=== PATIENT | female | born 1995 | race African-American/Black ===

== ENCOUNTER 2020-01-04 18:10 | Emergency (ER) | payer OTHER, SELFPAY ==
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
[2020-01-04 18:44] VITALS: BP 113/73; PULSE 89; RESP 18; TEMP 36.8; O2SAT 99
--- NOTE | 2020-01-04 18:54 | PC.NURSE ---
Pt states is having difficulty breathing with c collar in place. SPo2 100% on room air. Dr. Carwford made aware. Collar adjusted with neck midline and replaced. Pt states feels much better at present.
--- NOTE | 2020-01-04 20:32 | PC.NURSE ---
patient back from CT. wants nausea med and ice chips. will discuss with .
[2020-01-04 20:48] VITALS: BP 102/79; PULSE 100; RESP 12; O2SAT 100
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
[2020-01-04] MEDS: ONDANSETRON HCL ODT 4 MG TABLET PO (21:48)
[2020-01-04] MEDS: IBUPROFEN 400 MG TABLET 800 MG PO (21:48)
[2020-01-04 22:00] VITALS: BP 101/70; PULSE 78; RESP 14; O2SAT 98
== END 2020-01-04 22:00 | disposition home or self-care (01) ==
PROVIDERS: Emergency Provider General Practice; Referring Provider Emergency Medicine
DX: S70.11XA Contusion of right thigh, initial encounter (principal); S63.619A Unspecified sprain of unspecified finger, initial encounter; V43.52XA Car driver injured in collision with other type car in traffic accident, initial encounter
CPT/HCPCS: 73140; 73552; 99284; A9270

== ENCOUNTER 2021-02-08 09:11 | Emergency (ER) | payer OTHER, SELFPAY ==
[2021-02-08] VITALS (8 sets, daily range): BP systolic 114–133; BP diastolic 74–84; PULSE 68–92; RESP 16; TEMP 36.2; O2SAT 97–100
--- NOTE | ~2021-02-08 | XR_ITS ---
EXAMINATION: XR chest 1V DATE: 02/08/2021 10:42 INDICATION: Headache. Fatigue. Dizziness. TECHNIQUE: A single frontal view of the chest was obtained. COMPARISON: None. FINDINGS: The chest demonstrates clear lungs without pneumonia, pleural effusion, or pneumothorax. Th e heart size is normal. IMPRESSION: 1. No acute cardiopulmonary disease. Reviewed, dictated and finalized at location A. OLOGY TEACHER
--- NOTE | ~2021-02-08 | CT_ITS ---
EXAMINATION: CT brain wo con DATE: 02/08/2021 10:38 INDICATION: Left-sided headache. TECHNIQUE: Computed tomography (CT) of the head was performed without intravenous contrast. The mA wa s adjusted according to patient size. Iterative reconstruction technique was employed. The dose-lengt h product was 605.33 mGy-cm. COMPARISON: None FINDINGS: There is no intracranial hemorrhage, acute infarction, or abnormal intracranial mass lesion . The ventricles are normal in size. There is mucosal thickening in the paranasal sinuses. The mastoi d air cells are normal. The orbits are normal. IMPRESSION: 1. Normal brain. Reviewed, dictated and finalized at location A. ECT SCIENTIFIC RESEARCH IMPRESSION: 1. Normal brain.
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
[2021-02-08 10:23] LABS: Basophils Percent Auto 0.6 % (0.2-1.2); Eosinophils Percent Auto 1.2 % (0-4.4); Hematocrit 39.8 % (37.0-47.0); Hemoglobin 12.5 g/dL (12.0-15.0); Immature Granulocyte Absolute 0.01 K/mm3 (0.00-0.031); Immature Granulocyte Percent A 0.3 % (0-0.5); Lymphocytes Absolute Auto 1.43 K/mm3 (0.9-3.2); Lymphocytes Percent Auto 43.1 % (18.3-44.2); Mean Corpuscular HGB Conc 31.4 g/dl (32-36); Mean Corpuscular Hemoglobin 27.4 pg (26-34); Mean Corpuscular Volume 87.3 fl (80-100); Monocytes Absolute Auto 0.4 K/mm3 (0.1-0.6); Neutrophils Absolute Auto 1.4 K/mm3 (1.3-6.7); Neutrophils Percent Auto 41.8 % (45.5-73.1); Platelet Count Result 240 k/mm3 (150-375); Red Blood Count 4.56 M/mm3 (4.2-5.4); Red Cell Distribution Width 14.4 % (11.5-14.5); White Blood Count 3.3 K/mm3 (4.5-10.0)
[2021-02-08 10:39] LABS: Alanine Aminotransferase 15 U/L (4-35); Albumin Level 4.2 g/dL (3.5-5.1); Alkaline Phosphatase 55 U/L (38-126); Anion Gap 3 mmol/L (8-16); Aspartate Amino Transferase 23 U/L (14-36); Bilirubin,Total 0.6 mg/dL (0.2-1.3); Blood Urea Nitrogen 6 mg/dL (7-17); Calcium 9.5 mg/dL (8.4-10.2); Carbon Dioxide 28 mmol/L (22-30); Chloride 107 mmol/L (98-107); Estimated CRCL calculation 132 ml/min; Estimated Glomerular Filt Rate > 60; Glucose 109 mg/dL (65-110); Potassium 4.2 mmol/L (3.4-5.0); Sodium 138 mmol/L (137-145)
[2021-02-08 11:09] LABS: Add Urine Microscopic? YES; Appearance Urine Cloudy (Clear); Bacteria Urine Trace /hpf; Bilirubin Urine Negative (Negative); Blood Urine 2+ (Negative); Color Urine Yellow (Yellow); Glucose Urine UA Negative (Negative); Ketones Urine Negative (Negative); Leukocyte Esterase Ur 1+ LEU/UL (Negative); Mucus Urine Moderate /lpf; Nitrate Urine Negative (Negative); Protein Urine Negative (Negative); RBC Urine 0-2 /hpf (0-2); Specific Grav Ur 1.021 (1.001-1.035); Squamous Epithelial Cell Urine Many /hpf (Few)
--- NOTE | 2021-02-08 12:36 | PC.NURSE ---
Per [facility] staff, pt is supposed to wear 2L/NC continuously. Nurse is unsure if pt has been tested for COVID. They have no results.
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
== END 2021-02-08 12:41 | disposition home or self-care (01) ==
PROVIDERS: Physician Assistant; Emergency Provider Emergency Medicine; PCP Family Medicine
DX: R51.9 Headache, unspecified (principal)
CPT/HCPCS: 36415; 70450; 71045; 80053; 81001; 81025; 84443; 85025; 87086; 87088; 99284

== ENCOUNTER 2022-02-28 15:49 | Outpatient (CLI) | payer BC, SELFPAY | END 2022-02-28 15:50 | disposition home or self-care (01) | PROVIDERS: PCP Family Medicine; Visit Provider Obstetrics & Gynecology | DX: N91.1 Secondary amenorrhea (principal) | CPT/HCPCS: 36415; 84702 ==

== ENCOUNTER 2022-03-02 09:21 | Outpatient (CLI) | payer BC, SELFPAY | END 2022-03-02 09:22 | disposition home or self-care (01) | PROVIDERS: PCP Family Medicine; Visit Provider Obstetrics & Gynecology | DX: N91.1 Secondary amenorrhea (principal) | CPT/HCPCS: 36415; 84702 ==

== ENCOUNTER 2022-03-14 15:46 | Outpatient (CLI) | payer BC, MEDICAID, SELFPAY ==
--- NOTE | ~2022-03-14 | US_ITS ---
EXAMINATION: US OB <=14 wk fetus w TV DATE: 03/14/2022 16:38 INDICATION: Uncertain dates. . TECHNIQUE: Real-time transabdominal and transvaginal pelvic ultrasound was performed. COMPARISON: None. FINDINGS: TRANSABDOMINAL ULTRASOUND: The uterus measures 11.3 x 5.3 x 6.1 cm. TRANSVAGINAL ULTRASOUND: There is an intrauterine gestational sac. A yolk sac is identified. The fet al crown rump length measures 8 mm, which correlates with an estimated gestational age of 6 weeks and 5 day(s) (+/-) 4 day(s). heart motion is identified measuring 117 beats per minute (bpm) by M- mode Doppler. The right ovary measures 2.4 x 2.0 x 1.0 cm. The left ovary measures 2.1 x 1.8 x 2.1 cm . There is no free fluid in the pelvis. IMPRESSION: 1. Single living intrauterine gestation with estimated date of delivery of 11/02/2022. Reviewed, dictated and finalized at location A. EL SCRAPPER IMPRESSION: 1. Single living intrauterine gestation with estimated date of delivery of 11/02.
== END 2022-03-14 15:47 | disposition home or self-care (01) ==
PROVIDERS: PCP Family Medicine; Visit Provider Obstetrics & Gynecology
DX: Z36.9 Encounter for antenatal screening, unspecified (principal); Z3A.00 Weeks of gestation of pregnancy not specified
CPT/HCPCS: 76801; 76817

== ENCOUNTER 2022-08-03 11:26 | Outpatient (CLI) | payer BC, MEDICAID, SELFPAY ==
[2022-08-03 13:19] LABS: Basophils Percent Auto 0.4 % (0.2-1.2); Eosinophils Absolute Auto 0.1 K/mm3 (0-0.3); Eosinophils Percent Auto 1.9 % (0-4.4); Hematocrit 33.3 % (37.0-47.0); Hemoglobin 10.5 g/dL (12.0-15.0); Immature Granulocyte Absolute 0.02 K/mm3 (0.00-0.031); Immature Granulocyte Percent A 0.3 % (0-0.5); Lymphocytes Percent Auto 22.3 % (18.3-44.2); Mean Corpuscular HGB Conc 31.5 g/dl (32-36); Mean Corpuscular Hemoglobin 26.9 pg (26-34); Mean Corpuscular Volume 85.4 fl (80-100); Mean Platelet Volume 10.7 fl (7.4-10.4); Monocytes Absolute Auto 0.6 K/mm3 (0.1-0.6); Monocytes Percent Auto 9.2 % (2.6-8.5); Neutrophils Absolute Auto 4.4 K/mm3 (1.3-6.7); Neutrophils Percent Auto 65.9 % (45.5-73.1); Platelet Count Result 192 k/mm3 (150-375); White Blood Count 6.7 K/mm3 (4.5-10.0)
[2022-08-03 13:34] LABS: Glucose 1 Hour PP 50gm Dose 91 mg/dL
[2022-08-03 13:57] LABS: Vitamin D 25 Hydroxy 14.8 ng/mL
[2022-08-03 14:28] LABS: Hepatitis C Virus Antibody Negative (Negative)
== END 2022-08-03 11:27 | disposition home or self-care (01) ==
LOC: ANHLAB 11:27
PROVIDERS: PCP Family Medicine; Visit Provider Registered Nurse
DX: Z34.90 Encounter for supervision of normal pregnancy, unspecified, unspecified trimester (principal)
CPT/HCPCS: 36415; 82306; 82947; 84443; 85025; 86787; 86803

== ENCOUNTER 2022-10-07 14:03 | Outpatient (CLI) | payer BC, MEDICAID, SELFPAY ==
[2022-10-07 15:33] LABS: Basophils Percent Auto 0.1 % (0.2-1.2); Eosinophils Percent Auto 0.6 % (0-4.4); Hematocrit 31.5 % (37.0-47.0); Hemoglobin 9.7 g/dL (12.0-15.0); Immature Granulocyte Absolute 0.04 K/mm3 (0.00-0.031); Immature Granulocyte Percent A 0.6 % (0-0.5); Lymphocytes Absolute Auto 1.48 K/mm3 (0.9-3.2); Lymphocytes Percent Auto 21.3 % (18.3-44.2); Mean Corpuscular HGB Conc 30.8 g/dl (32-36); Mean Corpuscular Hemoglobin 25.5 pg (26-34); Mean Corpuscular Volume 82.7 fl (80-100); Mean Platelet Volume 11.3 fl (7.4-10.4); Monocytes Absolute Auto 0.6 K/mm3 (0.1-0.6); Monocytes Percent Auto 8.2 % (2.6-8.5); Neutrophils Absolute Auto 4.8 K/mm3 (1.3-6.7); Neutrophils Percent Auto 69.2 % (45.5-73.1); Platelet Count Result 159 k/mm3 (150-375); Red Blood Count 3.81 M/mm3 (4.2-5.4); Red Cell Distribution Width 15.8 % (11.5-14.5); White Blood Count 6.9 K/mm3 (4.5-10.0)
[2022-10-07 16:55] LABS: HIV 1/2 Ab P24 Ag Result Negative (Negative)
[2022-10-08 12:13] LABS: Rapid Plasma Reagin Non-Reactive (NonReactive)
== END 2022-10-07 14:04 | disposition home or self-care (01) ==
LOC: ANHLAB 14:05
PROVIDERS: PCP Family Medicine; Visit Provider Obstetrics & Gynecology
DX: Z34.90 Encounter for supervision of normal pregnancy, unspecified, unspecified trimester (principal); Z3A.00 Weeks of gestation of pregnancy not specified
CPT/HCPCS: 36415; 85025; 86592; 86703; G0432

== ENCOUNTER 2022-10-15 08:54 | Inpatient (IN) | payer BC, MEDICAID, SELFPAY ==
[2022-10-15] VITALS (205 sets, daily range): BP systolic 60–122; BP diastolic 34–84; PULSE 37–190; RESP 16–18; TEMP 36.1–36.3; O2SAT 92–100; BMI 35.8
--- NOTE | ~2022-10-15 | US_ITS ---
EXAMINATION: US OB limited w BPP DATE: 10/15/2022 12:01 INDICATION: Decelerations during third trimester TECHNIQUE: Real-time pelvic ultrasound was performed. The interpreting radiologist was not present fo r the study. COMPARISON: 03/14/2022 FINDINGS: There is a single living fetus in vertex presentation. The placenta is fundal. heart rate is 14 1 beats per minute (bpm). Biophysical profile performed by the technologist: breathing (30 sec sustained breathing in 30 minutes): 2 out of 2 movement (3 gross body movements in 30 minutes): 2 out of 2 tone (one episode of [id number]-[id number] limb movement): 2 out of 2 Amniotic fluid pocket (2 cm): 2 out of 2 Total score: 8 out of 8 IMPRESSION: 1. Single living fetus in vertex presentation. 2. Biophysical profile 8 out of 8. Reviewed, dictated and finalized at location A.
[2022-10-15 11:42] LABS: Basophils Percent Auto 0.2 % (0.2-1.2); Eosinophils Absolute Auto 0.1 K/mm3 (0-0.3); Eosinophils Percent Auto 0.6 % (0-4.4); Hematocrit 31.9 % (37.0-47.0); Hemoglobin 9.7 g/dL (12.0-15.0); Immature Granulocyte Absolute 0.02 K/mm3 (0.00-0.031); Immature Granulocyte Percent A 0.2 % (0-0.5); Lymphocytes Absolute Auto 1.55 K/mm3 (0.9-3.2); Lymphocytes Percent Auto 19.3 % (18.3-44.2); Mean Corpuscular HGB Conc 30.4 g/dl (32-36); Mean Corpuscular Hemoglobin 25.1 pg (26-34); Mean Corpuscular Volume 82.4 fl (80-100); Mean Platelet Volume 11.4 fl (7.4-10.4); Monocytes Absolute Auto 0.6 K/mm3 (0.1-0.6); Neutrophils Absolute Auto 5.9 K/mm3 (1.3-6.7); Neutrophils Percent Auto 72.7 % (45.5-73.1); Platelet Count Result 165 k/mm3 (150-375); Red Blood Count 3.87 M/mm3 (4.2-5.4); Red Cell Distribution Width 16.1 % (11.5-14.5); White Blood Count 8.1 K/mm3 (4.5-10.0)
[2022-10-15 11:47] LABS: Appearance Urine Clear (Clear); Bacteria Urine None Seen /hpf; Bilirubin Urine Negative (Negative); Blood Urine Negative (Negative); Color Urine Yellow (Yellow); Glucose Urine UA Negative (Negative); Ketones Urine Negative (Negative); Leukocyte Esterase Ur Trace LEU/UL (Negative); Nitrate Urine Negative (Negative); Non Pathogenic Casts 0-2; Protein Urine Negative (Negative); RBC Urine 0-2 /hpf (0-2); Specific Grav Ur 1.004 (1.001-1.035); Squamous Epithelial Cell Urine None seen /hpf (Few); WBC Urine 0-5 /hpf
[2022-10-15 11:49] LABS: Add Urine Microscopic? YES
[2022-10-15 11:51] LABS: Potassium 3.7 mmol/L (3.4-5.0)
[2022-10-15 11:56] LABS: Alanine Aminotransferase 12 U/L (6-35); Albumin Level 3.6 g/dL (3.5-5.1); Alkaline Phosphatase 102 U/L (38-126); Anion Gap 8 mmol/L (8-16); Aspartate Amino Transferase 18 U/L (14-36); Bilirubin,Total 0.6 mg/dL (0.2-1.3); Blood Urea Nitrogen 3 mg/dL (7-17); Calcium 8.8 mg/dL (8.4-10.2); Carbon Dioxide 20 mmol/L (22-30); Chloride 106 mmol/L (98-107); Estimated Glomerular Filt Rate > 60; Glucose 93 mg/dL (65-110); Sodium 134 mmol/L (137-145)
[2022-10-15] MEDS: LACTATED RINGERS 1,000 ML 125 ML IV CONT ×3 (14:57→19:42)
[2022-10-15] MEDS: OXYTOCIN 30 UNITS/NS 500 ML 30 UNITS/500 ML BAG IV CONT (15:00)
--- NOTE | 2022-10-15 15:06 | LDADM ---
This patient, Woodrow Marques, was admitted to Labor/Delivery/Recovery 106 on 10/15/22 at 0854. Plans for labor, pain management and were discussed with patient. Patient/family oriented to hospital policies and general routines including ID bracelet, bed and alarms, visiting hours, pain management, procedures, bathroom and other care routines, personal items, smoking policy, room service/diet and guest tray routines, security routines, and visiting hours. Patient/Family are encouraged to report perceived risks to care and to ask questions if they do not understand what they are told or what they should do. See OBIX for further documentation.
--- NOTE | 2022-10-15 16:23 | WPDANESEPPF ---
Anes - Initial Pre Proc Eval Procedure: labor epidural Date/Time: 10/15/22 16:23 Surgeon: Yeison Smith MD Pre Op Diagnosis: labor pain Pre Op Diagnosis: Lower Back Pain, Itchiness Patient Data Age: 27 Gender: F Height: 1.6 m Weight: 91.7 kg Last Vital Signs Temp 36.3 C L 10/15/22 15:00 Pulse 103 H 10/15/22 16:22 Resp 16 10/15/22 15:00 BP 121/58 L 10/15/22 16:22 Pulse Ox 100 10/15/22 16:18 O2 Del Method Room Air 10/15/22 15:06 Allergies Allergy/AdvReac Type Severity Reaction Status Date / Time Penicillins Allergy Intermediate rash Verified 10/10/22 15:23 amoxicillin Allergy Unknown RASH Verified 10/10/22 15:23 Home Medications Medication Instructions Recorded Confirmed Type prenat.vits,felecia,rml-auxe-ttgci 1 tablet PO DAILY 05/14/22 10/15/22 History ferrous sulfate 325 mg (65 mg 325 mg PO DAILY 08/21/22 10/15/22 History iron) tablet Laboratory Tests 10/15/22 10/15/22 11:29 11:32 WBC 8.1 K/mm3 (4.5-10.0) RBC 3.87 L M/mm3 (4.2-5.4) Hgb 9.7 L g/dL (12.0-15.0) Hct 31.9 L % (37.0-47.0) MCV 82.4 fl (80-100) MCH 25.1 L pg (26-34) MCHC 30.4 L g/dl (32-36) RDW 16.1 H % (11.5-14.5) Plt Count 165 k/mm3 (150-375) MPV 11.4 H fl (7.4-10.4) Immature Gran % (Auto) 0.2 % (0-0.5) Neut % (Auto) 72.7 % (45.5-73.1) Lymph % (Auto) 19.3 % (18.3-44.2) [place] % (Auto) 7.0 % (2.6-8.5) Eos % (Auto) 0.6 % (0-4.4) Baso % (Auto) 0.2 % (0.2-1.2) Lymph # (Auto) 1.55 K/mm3 (0.9-3.2) [place] # (Auto) 0.6 K/mm3 (0.1-0.6) Eos # (Auto) 0.1 K/mm3 (0-0.3) Baso # (Auto) 0.0 K/mm3 (0.0-0.1) Abs Immat Gran (auto) 0.02 K/mm3 (0.00-0.031) Absolute Neuts (auto) 5.9 K/mm3 (1.3-6.7) Absolute Nucleated RBC 0.0 K/mm3 (0.0-0.012) Nucleated RBC % 0.0 % (0.0-0.2) Sodium 134 L mmol/L (137-145) Potassium 3.7 mmol/L (3.4-5.0) Chloride 106 mmol/L (98-107) Carbon Dioxide 20 L mmol/L (22-30) Anion Gap 8 mmol/L (8-16) BUN 3 L mg/dL (7-17) Creatinine 0.40 L mg/dL (0.7-1.0) Estim Creat Clear Calc Not Reportable Estimated GFR > 60 (59 - ) Glucose 93 mg/dL (65-110) Calcium 8.8 mg/dL (8.4-10.2) Total Bilirubin 0.6 mg/dL (0.2-1.3) AST 18 U/L (14-36) ALT 12 U/L (6-35) Alkaline Phosphatase 102 U/L (38-126) Total Protein 7.0 g/dL (6.3-8.2) Albumin 3.6 g/dL (3.5-5.1) Cholic Acid Pending Deoxycholic Acid Pending Chenodeoxycholic Acid Pending Total Bile Acids Pending Urine Color Yellow (Yellow) Urine Appearance Clear (Clear) Urine pH 6.0 (5.0-9.0) Ur Specific [place] 1.004 (1.001-1.035) Urine Protein Negative mg/dL (Negative) Urine Glucose (UA) Negative mg/dL (Negative) Urine Ketones Negative mg/dL (Negative) Ur Blood (Man) Negative (Negative) Urine Nitrate Negative (Negative) Urine Bilirubin Negative (Negative) Urine Urobilinogen 1.0 mg/dL (<2.0) Leukocyte Esterase Rfl Trace H EARL/UL (Negative) Urine RBC 0-2 /hpf (0-2) Urine WBC 0-5 /hpf Ur Squamous Epith Cells None seen /hpf (Few) Urine Bacteria None seen /hpf Urine Casts 0-2 RPR Pending Blood Type B Positive Antibody Screen Negative Patient hx anesthesia problems: none Family hx anesthesia problems: none Results Review: All pre-operative results and documents have been reviewed as part of the pre-operative evaluation. [facility] Past Medical History Medical History Constipation Vaginal odor Surgical History Surgical History (Reviewed 10/10
[2022-10-15] MEDS: DEXTROSE 5%/LACTATED RINGERS 1,000 ML 125 ML IV CONT (17:10)
[2022-10-15] MEDS: PHENYLEPHRINE 1,000 MCG/10 ML SYRINGE 100 MCG IV PUSH ×4 (17:17→17:55)
[2022-10-15] MEDS: ePHEDrine sulfate INJ 50 MG/ML AMPUL 10 MG IV PUSH (18:07)
--- NOTE | 2022-10-15 20:44 | PM.IMHP ---
H&P: HPI History of Present Illness Date/Time: 10/15/22 20:44 Chief Complaint: Abnormal surveillance Narrative: She is 27 y/o at 37 3/7 weeks sent to L and D for contractions. She also complained of diffuse hand itching for a day, no rash. During her NST she had recurrent variable decelerations and was recommended for medical induction of labor. PNC significant for history of marijuana use which she stopped during . Also treated for chlmydia with negative RICHY during the , anemia of which she was ordered iron injection because was not tolerating oral iron. Labs reviewed. GBS neg. Review of Systems Review of Systems: All systems reviewed & are unremarkable except as noted in HPI and below Constitutional: Constitutional: Reports no additional constitutional complaints and Denies headache(s) Eyes: Eyes: Denies spots in vision ENT: Reports system reviewed and no additional complaints, except as documented and Denies headache(s) Cardiovascular: Cardiovascular: Denies chest pain and Denies dyspnea Respiratory: Respiratory: Denies dyspnea Gastrointestinal: Gastrointestinal: Reports no additional gastrointestinal complaints Genitourinary: Genitourinary: Reports amenorrhea Musculoskeletal: Musculoskeletal: Reports no additional musculoskeletal complaints Integumentary/Breasts: Skin/Breast: Denies breast mass and Denies rash Neurologic: Denies headache(s) Psychiatric: Psychiatric: Reports no additional psychiatric complaints [facility] Past Medical History Medical History Constipation Vaginal odor Surgical History Surgical History H/O foot surgery Family History Family History Son Asthma Grandparent History of cancer Cerebrovascular accident Other Diabetes mellitus Aunt Social History Social History Smoking status: Never smoker Second hand tobacco smoke exposure: Yes Alcohol intake: never Substance use: former Last use: Stopped Lack of Transportation: No Lack of Food: Never True Current Housing: I Have Housing Concerned About Future Housing: No Difficulty Paying Gas/Electric Bills: No Difficulty Paying for Meds: No Currently Unemployed: No Education: Bachelor's Degree Difficulty w/ Childcare or Family Care: No Living arrangements: with family Occupation/Education: occupation Gender identity (if verbalized by the patient): Female Sexual Orientation (if Verbalized by the Patient): Straight or Heterosexual Spiritual care concerns: No Agree to blood products: Yes Meds Home Medications and Allergies Home Medications Medication Instructions Recorded Confirmed Type prenat.vits,felecia,erz-clck-bnbjs 1 tablet PO DAILY 05/14/22 10/15/22 History ferrous sulfate 325 mg (65 mg 325 mg PO DAILY 08/21/22 10/15/22 History iron) tablet Allergies Allergy/AdvReac Type Severity Reaction Status Date / Time Penicillins Allergy Intermediate rash Verified 10/10/22 15:23 amoxicillin Allergy Unknown RASH Verified 10/10/22 15:23 Vital Signs Vital Signs - 24 hr 10/15/22 09:16 10/15/22 09:31 10/15/22 09:46 Temperature Pulse Rate 94 80 84 Respiratory Rate Blood Pressure 102/58 L 105/58 L 103/65 Pulse Oximetry Oxygen Delivery 10/15/22 10:31 10/15/22 11:01 10/15/22 11:31 Temperature Pulse Rate 90 99 88 Respiratory Rate Blood Pressure 100/67 96/66 L 102/63 Pulse Oximetry Oxygen Delivery 10/15/22 14:52 10/15/22 14:59 10/15/22 15:15 Temperature Pulse Rate 99 98 97 Respiratory Rate Blood Pressure 108/65 108/66 105/67 Pulse Oximetry Oxygen Delivery 10/15/22 15:30 10/15/22 14:00 10/15/22 15:00 Temperature 97.1 F L 97.3 F L Pulse Rate 95 Respiratory R
--- NOTE | 2022-10-15 21:06 | PM.OBPNVD ---
OB - PN: Subj Subjective Date/time seen: 10/15/22 21:06 Interval history: Cat 2, irreg ctx, cervix /blottable. Continue Pitocin. OB - PN: Obj Data Labs 10/15/22 11:32 10/15/22 11:32 Labs: Laboratory Results - last 24 hr 10/15/22 10/15/22 11:29 11:32 WBC 8.1 RBC 3.87 L Hgb 9.7 L Hct 31.9 L MCV 82.4 MCH 25.1 L MCHC 30.4 L RDW 16.1 H Plt Count 165 MPV 11.4 H Immature Gran % (Auto) 0.2 Neut % (Auto) 72.7 Lymph % (Auto) 19.3 [place] % (Auto) 7.0 Eos % (Auto) 0.6 Baso % (Auto) 0.2 Lymph # (Auto) 1.55 [place] # (Auto) 0.6 Eos # (Auto) 0.1 Baso # (Auto) 0.0 Abs Immat Gran (auto) 0.02 Absolute Neuts (auto) 5.9 Absolute Nucleated RBC 0.0 Nucleated RBC % 0.0 Sodium 134 L Potassium 3.7 Chloride 106 Carbon Dioxide 20 L Anion Gap 8 BUN 3 L Creatinine 0.40 L Estim Creat Clear Calc Not Reportable Estimated GFR > 60 Glucose 93 Calcium 8.8 Total Bilirubin 0.6 AST 18 ALT 12 Alkaline Phosphatase 102 Total Protein 7.0 Albumin 3.6 Urine Color Yellow Urine Appearance Clear Urine pH 6.0 Ur Specific [place] 1.004 Urine Protein Negative Urine Glucose (UA) Negative Urine Ketones Negative Ur Blood (Man) Negative Urine Nitrate Negative Urine Bilirubin Negative Urine Urobilinogen 1.0 Leukocyte Esterase Rfl Trace H Urine RBC 0-2 Urine WBC 0-5 Ur Squamous Epith Cells None seen Urine Bacteria None seen Urine Casts 0-2 Blood Type B Positive Antibody Screen Negative Imaging Radiologist's impression: Impressions Obstetrics US/Biophysical Profile 10/15/22 12:11 IMPRESSION: 1. Single living fetus in vertex presentation. 2. Biophysical profile 8 out of 8. OB - PN A/P Time Spent With Patient Time: Total time spent is greater than 50% in coordination of care (as documented) at patient's floor/unit and/or counseling patient:
[2022-10-16] VITALS (157 sets, daily range): BP systolic 80–118; BP diastolic 43–103; PULSE 70–160; RESP 16–18; TEMP 36.2–36.9; O2SAT 82–100
[2022-10-16] MEDS: DEXTROSE 5%/LACTATED RINGERS 1,000 ML 125 ML IV CONT ×2 (02:08→10:10)
[2022-10-16] MEDS: CALCIUM CARBONATE (TUMS) 500 MG (200 MG ELEMENTAL) PO (02:26)
[2022-10-16] MEDS: OXYTOCIN 30 UNITS/NS 500 ML 30 UNITS/500 ML BAG 125 UNITS IV CONT (11:15)
--- NOTE | 2022-10-16 13:03 | OBPPTRN ---
Patient transferred to post room #277 via wheelchair. Support person present. Oriented to unit, room, information board, rooming in, admission packet and security measures. Patient verbalizes understanding.
[2022-10-16] MEDS: IBUPROFEN 600 MG TABLET PO ×2 (13:21→21:43)
--- NOTE | 2022-10-16 13:57 | PM.OBPRVD ---
OB - Delivery Note Procedure Delivery date: 10/16/22 Procedure: spontaneous vaginal delivery Events: Other (nonreassuring tracing) Induction method: Per Pitocin Protocol Delivery augmentation: Rupture of Membranes Delivery monitor: External FHT and Internal Uterine Route of delivery: Laceration Description: None Quantitative Blood Loss (ml): 200 Anesthesia type: Epidural Disposition: Floor Narrative: She was admitted for medical induction of labor with Pitocin due to nonreassuring tracing with recurrent variable decelerations. Pitocin was initiated. She requested epidural early due to fast prior delivery. Epidural was placed. She progressed to active labor slowly. She had AROM clear fluid and then progressed to complete. She had an uncomplicated vaginal delivery, no lacerations, loose nuchal cord manualy reduced. Delayed cord clamping and skin to skin performed. [place] Baby Date of : 10/16/22 Time of : 10:45 Weeks of gestation at delivery: 37 Infant gender: Male Weight (pounds): 7 Weight (ounces): 5 presentation: vertex position: Right Occiput Anterior Placenta delivery description: Spontaneous Cord Vessel Description: 3 Vessels score one minute: 9 score five minutes: 9
[2022-10-16 14:43] LABS: Rapid Plasma Reagin Non-Reactive (NonReactive)
[2022-10-16] MEDS: ACETAMINOPHEN 325 MG TABLET 650 MG PO (16:29)
[2022-10-16] MEDS: POLYSACCHARIDE IRON COMPLEX 150 MG CAPSULE PO (16:29)
[2022-10-16] MEDS: DOCUSATE SODIUM 100 MG CAPSULE PO (16:29)
[2022-10-17] MEDS: IBUPROFEN 600 MG TABLET PO (03:22)
[2022-10-17] MEDS: ACETAMINOPHEN 325 MG TABLET 650 MG PO (03:22)
[2022-10-17 03:28] VITALS: BP 111/62; PULSE 82; RESP 18; TEMP 36.2; O2SAT 100
[2022-10-17 04:21] LABS: Hematocrit 30.6 % (37.0-47.0); Hemoglobin 9.3 g/dL (12.0-15.0)
[2022-10-17] MEDS: MULTIVIT/MIN/PREN/FOL AC/IRON TABLET 1 TAB PO (07:23)
[2022-10-17] MEDS: DOCUSATE SODIUM 100 MG CAPSULE PO (07:23)
[2022-10-17] MEDS: POLYSACCHARIDE IRON COMPLEX 150 MG CAPSULE PO (07:23)
[2022-10-17] MEDS: TETANUS,DIPHTHERIA,AC PERTUSSIS ADULT (0.5 ML) BOOSTRIX IM (07:23)
[2022-10-17 07:30] VITALS: BP 95/52; PULSE 87; RESP 16; TEMP 36.8; O2SAT 100
--- NOTE | 2022-10-17 11:02 | PM.OBPNVD ---
OB - PN: Subj Subjective Date/time seen: 10/17/22 11:02 Patient comments: pain well controlled, tolerating diet and other (Decreasing lochia.) baby status: doing well and nursing well [place] feeding status: breast and bottle feeding OB - PN: Obj Data Labs 10/17/22 03:13 10/15/22 11:32 Labs: Laboratory Results - last 24 hr 10/15/22 10/17/22 11:29 03:13 Hgb 9.3 L Hct 30.6 L RPR Non-reactive OB - PN A/P Assessment and Plan (1) Vaginal delivery: Code(s): O80 - Encounter for full-term uncomplicated delivery Status: Acute Plan day: 1 Plan: routine care Comments: Patient doing well. She request discharge. Discussed discharge precautions. Time Spent With Patient Time: Total time spent is greater than 50% in coordination of care (as documented) at patient's floor/unit and/or counseling patient: Exam Const: General: comfortable and no acute distress Resp: Effort & Inspection: normal respiratory effort GI: Inspection: normal to inspection Psych: Affect: normal affect Other: Abd: fundus firm below umbilicus, nontender Ext: nontender
--- NOTE | 2022-10-17 12:14 | PC.NURSE ---
Patient viewed the discharge video Mother & Baby Care, The First Two Weeks . Patient was given the opportunity and encouraged to ask questions. Patient verbalized understanding of information shared and has been given the mother/baby guide for home reference.
--- NOTE | 2022-10-17 13:18 | WPDANLDPN2 ---
Anes-Prog Note L&D Date/Time: 10/17/22 13:18 Comfortable throughout: labor and delivery Neuraxial method: epidural Epidural/Spinal procedure site: clean & non-tender Neuro status: Neuro function grossly intact. Cardiovascular status: normal Respiratory status: normal Airway patency: baseline Mental status: baseline Post-Op hydration status: normal Vital Signs: Last Vital Signs Temp 36.8 C 10/17/22 07:30 Pulse 87 10/17/22 07:30 Resp 16 10/17/22 07:30 BP 95/52 L 10/17/22 07:30 Pulse Ox 100 10/17/22 07:30 O2 Del Method Room Air 10/17/22 07:20 Pain score (VAS): 2/10 I/O: Intake & Output 10/16/22 10/17/22 10/17/22 23:59 07:59 15:59 Intake Total 500 Balance 500 Patient feedback: Patient satisfied with anesthetic care.
--- NOTE | 2022-10-17 13:45 | PC.NURSE ---
[id number] Re-introductions were made as RN has worked with mother in the past with two prior infants. Consulted with patient to assess needs related to . Mother led the conversation with her?plans to feed?her with combination feeding and the?experience so far. Reviewed education regarding protecting the milk supply, without pain, waking infant to feed on demand or every 3 hours and prevention/treatment of mastitis, plugged ducts or engorgement. Mother states the initial was painful especially taking her infant off the breast so we reviewed detaching infant from the breast. Reminded mother to use good handwashing technique to prevent infection. Mother is feeding appropriately for growth of infant and understands stimulating to eat if needed. has had appropriate feedings in the last 24 hours meets the outcomes for weight, output and jaundice at this time. Mother states she is confident to continue feeding her at home, when to call for assistance and denies any additional assistance or education at this time. Resources provided for inpatient and outpatient services with the feeding sheet, mom/baby guide and name written on the white board. Mother voiced understanding of information and will call if there is a request for assistance. Reported to the primary RN. [id number] - Mother states she independently latched infant without pain on her own earlier as she prepares to go home with her . Primary RN is present.
[2022-10-18 11:24] VITALS: BP 97/62; PULSE 82; RESP 18; TEMP 37.1; O2SAT 100
[2022-10-22 16:31] LABS: Chenodeoxycholic Acid 1.6 umol/L (< OR = 3.9); Cholic Acid <0.5 umol/L (< OR = 2.8); Deoxycholic Acid 0.5 umol/L (< OR = 2.3); Total Bile Acids 2.1 umol/L (< OR = 8.3)
--- NOTE | 2022-10-31 20:46 | PM.OBDSVD ---
DS: Admitting Diagnosis Discharge Date 10/17/22 Admitting Diagnosis Nonreassuring heart tracing. DS: Discharge Diagnosis Discharge Diagnosis (1) Non-reassuring cardiotocographic tracing: Code(s): O36.8390 - Maternal care for abnormalities of the heart rate or rhythm, unspecified trimester, not applicable or unspecified Status: Acute (2) Vaginal delivery: Code(s): O80 - Encounter for full-term uncomplicated delivery Status: Acute OB - DS: Summary Hospital Course Hospital Course: She was admitted for MIL with Pitocin for nonreassuring heart tracing. She had an uncomplicated vaginal delivery. She did well . Baby did well . She was ambulating well and tolerating regular diet and had adequate pain control on day 1. She requested discharge to home on day 1. OB Procedures : Ultrasound OB Procedures Intrapartum: Spontaneous Vag Delivery OB Procedures: : None Peripartum Data Delivery Method: Natural Vaginal complications: none Status at Discharge Functional status at discharge: independent ambulation Time Spent with Patient Time attestation: Total time spent providing and/or coordinating discharge services: Exam Const: General: cooperative Orientation/consciousness: oriented to person, oriented to place and oriented to time HENMT: Face/Nose/Sinus: Normal external nose present Eyes: General: appearance normal, both eyes and all related structures Resp: Effort & Inspection: normal respiratory effort GI: Inspection: normal to inspection Skin: General skin exam: normal color Neuro: General: oriented to person, oriented to place and oriented to time Extrem: General: normal to inspection and no calf tenderness Psych: Appearance: grossly normal Mental Status: mental status grossly normal Discharge Plan Discharge Attending physician on discharge: Yeison Smith Consulting providers: Macr Fink; Vijaya Ramirez; Gonzales Palmer Discharging Clinician: Yeison Smith Anticipated Discharge Date/Time: 10/17/22 11:09 Patient Disposition: Home, Self-Care Activity: may shower and pelvic rest Diet: regular Discharge Instructions: Education: Mom and Baby Guide Given to: Mother Follow-Up: Call your delivering provider's office for an appointment to be seen in: 4- 6 Weeks Mom and baby should come to the [facility] for the follow-up appointment. Appointment Date/Time: October 18, 2022 at 11:00 am What to expect at your follow-up visit: Blood Pressure Check Physical Assessment Call [phone] if you are unable to keep your appointment time. BREAST CARE: * Wear a snug supportive bra. * For engorgement discomfort: Breast Feeding: * Apply warm moist washcloths * Express milk as needed to relieve engorgement * Wear loose clothing Bottle Feeding: * May apply ice packs * For sore nipples: * Identify correct latch-on * Apply warm moist washcloths before and after nursing * Air dry nipples after nursing * May apply Lansinoh cream to nipples PERINEAL CARE: * Until bleeding stops, use your pritesh bottle after urinating * Change your pad frequently throughout the day * You may take sitz baths several times a day (fill your bathtub with warm water and soak for 20 minutes.) Do NOT bathe in the water * No tub baths until seen by your physician - You may shower ACTIVITY: * Rest as much as possible. * Do not exercise or lift anything heavier than your baby (such as laundry or other children.) * Avoid stairs or driving as much as possible. * Do not put anything into the vagina. No douching, tampons, or sexual activity until seen by physician. NOTIFY PHYSICIAN IF YOU HAVE ANY QUESTIONS OR IF ANY OF THE FOLLOWING SYMPTOMS OCCUR: * If your vaginal bleeding becomes foul smelling. *
== END 2022-10-17 13:45 | disposition home or self-care (01) | DRG 807 ==
LOC: ANHOBPP 13:16 → ANHLDR 13:48 → ANHOB2 10-16 13:08
PROVIDERS: Admitting Provider Obstetrics & Gynecology; Visit Provider Obstetrics & Gynecology
DX: O69.81X0 Labor and delivery complicated by cord around neck, without compression, not applicable or unspecified (principal); Z37.0 Single live birth; Z3A.37 37 weeks gestation of pregnancy; O36.8330 Maternal care for abnormalities of the fetal heart rate or rhythm, third trimester, not applicable or unspecified; O99.02 Anemia complicating childbirth; D64.9 Anemia, unspecified
CPT/HCPCS: 36415; 76815; 76819; 80053; 81001; 82542; 84112; 85014; 85018; 85025; 86592; 86850; 86900; 86901; 90715; A9270; G0378; G0379; J2371; J2590; J2795; J7120; J7121

== ENCOUNTER 2024-03-16 09:30 | Emergency (ER) | payer MEDICAID, SELFPAY ==
--- NOTE | ~2024-03-16 | US_ITS ---
EXAMINATION: US OB <=14 wk fetus w TV DATE: 03/16/2024 11:36 INDICATION: Abdominal cramping and low back pain during first trimester TECHNIQUE: Real-time pelvic ultrasound utilizing both a transvaginal and transabdominal probe was pe rformed. The interpreting radiologist was not present for the study. COMPARISON: None. FINDINGS: The uterus measures 10.2 x 6.2 x 7.8 cm. There is an intrauterine gestational sac. A yolk sac and fe brianna pole are identified. The crown rump length measures 1.6 cm, which correlates with an estimated ge stational age of 8 weeks and 0 days. heart motion is identified measuring 169 beats per minute (bpm) by M-mode Doppler. The right ovary measures 2.9 x 2.1 x 2.7 cm. The left ovary measures 1.8 x 1.8 x 1.5 cm. Vascular priyank w identified in both ovaries on color Doppler. 2.3 similar hypoechoic likely corpus luteum cyst in th e right ovary. There are few Gypsy anechoic follicles in the left ovary. There is no free fluid i n the pelvis. IMPRESSION: 1. Single living fetus with heart rate of 169 bpm. 2. Gestational age by ultrasound of 8 weeks 0 day(s) +/- 5 day(s) with ultrasound estimated date of delivery (ROCIO) of 10/26/2024. Reviewed, dictated and finalized at location A. ASE OF INFORMATION CLERK IMPRESSION: 1. Single living fetus with heart rate of 169 bpm. 2. Gestational age by ultrasound of 8 weeks 0 day(s) +/- 5 day(s) with ultraso und estimated date of delivery (ROCIO) of 10/26/2024.
[2024-03-16 09:47] VITALS: BP 115/97; PULSE 86; RESP 16; TEMP 36.6; O2SAT 100
[2024-03-16] MEDS: ACETAMINOPHEN 500 MG TABLET 1000 MG PO (10:26)
[2024-03-16 10:35] LABS: Basophils Percent Auto 0.3 % (0.2-1.2); Eosinophils Percent Auto 0.3 % (0-4.4); Hematocrit 33.7 % (37.0-47.0); Hemoglobin 10.5 g/dL (12.0-15.0); Immature Granulocyte Absolute 0.01 K/mm3 (0.00-0.031); Immature Granulocyte Percent A 0.3 % (0-0.5); Lymphocytes Absolute Auto 1.18 K/mm3 (0.9-3.2); Lymphocytes Percent Auto 36.6 % (18.3-44.2); Mean Corpuscular HGB Conc 31.2 g/dl (32-36); Mean Corpuscular Hemoglobin 24.1 pg (26-34); Mean Corpuscular Volume 77.3 fl (80-100); Mean Platelet Volume 10.2 fl (7.4-10.4); Monocytes Absolute Auto 0.4 K/mm3 (0.1-0.6); Monocytes Percent Auto 11.5 % (2.6-8.5); Neutrophils Absolute Auto 1.6 K/mm3 (1.3-6.7); Platelet Count Result 223 k/mm3 (150-375); Red Blood Count 4.36 M/mm3 (4.2-5.4); Red Cell Distribution Width 18.4 % (11.5-14.5); White Blood Count 3.2 K/mm3 (4.5-10.0)
[2024-03-16 10:46] LABS: Prothrombin Time 13.4 Seconds (11.1-14.7)
[2024-03-16 10:47] LABS: Partial Thromboplastin Time 27.5 Seconds (22.3-36.8)
[2024-03-16 10:59] LABS: Alanine Aminotransferase 11 U/L (6-35); Albumin Level 4.3 g/dL (3.5-5.1); Alkaline Phosphatase 51 U/L (38-126); Anion Gap 13 mmol/L (4-12); Aspartate Amino Transferase 19 U/L (14-36); Bilirubin,Total 0.7 mg/dL (0.2-1.3); Blood Urea Nitrogen 11 mg/dL (7-17); Calcium 9.4 mg/dL (8.4-10.2); Carbon Dioxide 21 mmol/L (22-30); Chloride 102 mmol/L (98-107); Estimated CRCL calculation 151 ml/min; Estimated Glomerular Filt Rate > 60; Glucose 71 mg/dL (65-110); Potassium 3.6 mmol/L (3.4-5.0); Sodium 136 mmol/L (137-145)
--- NOTE | 2024-03-16 11:23 | PC.NURSE ---
Family at ultrasound. Will start fluids when pt. returns.
[2024-03-16] MEDS: SODIUM CHLORIDE 0.9% IV 1,000 ML 999 ML IV CONT (12:02)
--- NOTE | 2024-03-16 12:03 | ED_ITS ---
HPI - Back Pain/Injury General Chief Complaint: Back Pain/Injury Stated Complaint: 9wk preg low back pain Time Seen by Provider: 03/16/24 09:43 History of Present Illness HPI Narrative: 29-year-old female who is currently estimating 9 weeks presents to the emergency department with at bedside for abdominal cramping and low back pain for 1 day. Patient states the pain is diffusely throughout her low back and radiates to the sides into her lower abdomen. She states she contacted her OBGYN but unfortunately does not have an appointment until April 01 so she came to the ED for an ultrasound and to get the baby checked out. She denies vaginal bleeding, fever, dysuria or hematuria. She states she has a yellowish tinged vaginal discharge. Denies irritation or burning, denies lesions or sores, denies concerns for STDs. Related Data Allergies Allergy/AdvReac Type Severity Reaction Status Date / Time Penicillins Allergy Intermediate rash Verified 03/16/24 09:31 amoxicillin Allergy Unknown RASH Verified 03/16/24 09:31 Review of Systems 2 Review of Systems: All systems reviewed & are unremarkable except as noted in HPI and below PMFSH Past Medical History Medical History Encounter for IUD insertion BMI 34.0-34.9,adult Vaginal odor Constipation Surgical History Surgical History H/O foot surgery Family History Family History Son Asthma Grandparent History of cancer Cerebrovascular accident Other Diabetes mellitus Aunt Father No problems noted. Mother Neuropathy Kidney disease Sibling No problems noted. 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 HEAD: Normocephalic, atraumatic. EYES: EOMI. ENT: Nares clear, no rhinorrhea or epistaxis. Mucous membranes moist. NECK: Supple. BACK: No midline spinous tenderness, step offs or deformities, no saddle anesthesia CHEST: Clear to auscultation. No respiratory distress. HEART: Regular rate and rhythm. No murmur heard. Normal peripheral pulses. ABDOMEN: Soft, nontender, nondistended, normal active bowel sounds. No rebound, guarding rigidity. No CVA tenderness : Normal external genitalia, vaginal vault with cottage cheese white discharge, no blood, cervical os closed, no CMT, no adnexal masses or tenderness EXTREMITIES: Normal range of motion. No edema. SKIN: Warm, dry, no rash. NEURO: No focal deficits. Alert and oriented x3 Course Vital Signs Vital signs: Vital Signs Temperature 98 F 03/16/24 09:47 Pulse Rate 86 03/16/24 09:47 Respiratory Rate 16 03/16/24 09:47 Blood Pressure 115/97 H 03/16/24 09:47 Pulse Oximetry 100 03/16/24 09:47 Oxygen Delivery Room Air 03/16/24 09:47 Temperature 98 F 03/16/24 09:47 Pulse Rate 82 03/16/24 13:40 Respiratory Rate 16 03/16/24 13:40 Blood Pressure 93/56 L 03/16/24 13:40 Pulse Oximetry 100 03/16/24 13:40 Oxygen Delivery Room Air 03/16/24 09:47 MDM - Back Pain/Injury MDM Narrative Medical decision making narrative: 29-year-old female who is , currently estimated 9 weeks presents to the emergency department for lower abdominal cramping and low back pain for 1 day. See HPI for further history. Vitals are stable. Exam is significant for the above. CBC remarkable for leukopenia of 3.2. Patient does have a history of leukopenia back in 2020 and 2018. Hemoglobin is stable at 10.5, no thrombocytopenia. Chemistries with bicarb of 21 and anion gap of 13, normal glucose, likely dehydration. Fluids provided. [place] [id number]. Pelvic ultrasound shows a single living fetus with heart rate of 169 ppm with an estimated gestational age of 8 weeks, ROCIO of 10/26/2024. Rh type positive, RhoGAM not needed. UA with trace ketones, many squamous, 1+ bacteria, no wbc's, leuk esterase or nitrates. Patient updated on workup. Given will treat for asymptomatic bacteriuria with Keflex. She does have an allergy to penicillins with a rash. She is given Keflex in the ED without a reaction. Additionally will treat yeast vaginitis with topical antifungals. Will treat back pain with Tylenol. Advised follow-up with her OBGYN. Return precautions discussed. She is agreeable with the plan verbalized understanding. Discharged in stable condition. Lab Data 03/16/24 10:28 03/16/24 10:28 Labs: Lab Results 03/16/24 03/16/24 03/16/24 Range/Units 10:28 10:28 12:06 WBC 3.2 L (4.5-10.0) K/mm3 RBC 4.36 (4.2-5.4) M/mm3 Hgb 10.5 L (12.0-15.0) g/dL Hct 33.7 L (37.0-47.0) % MCV 77.3 L (80-100) fl MCH 24.1 L (26-34) pg MCHC 31.2 L (32-36) g/dl RDW 18.4 H (11.5-14.5) % Plt Count 223 (150-375) k/mm3 MPV 10.2 (7.4-10.4) fl Immature Gran % (Auto) 0.3 (0-0.5) % Neut % (Auto) 51.0 (45.5-73.1) % Lymph % (Auto) 36.6 (18.3-44.2) % [place] % (Auto) 11.5 H (2.6-8.5) % Eos % (Auto) 0.3 (0-4.4) % Baso % (Auto) 0.3 (0.2-1.2) % Lymph # (Auto) 1.18 (0.9-3.2) K/mm3 [place] # (Auto) 0.4 (0.1-0.6) K/mm3 Eos # (Auto) 0.0 (0-0.3) K/mm3 Baso # (Auto) 0.0 (0.0-0.1) K/mm3 Abs Immat Gran (auto) 0.01 (0.00-0.031) K/mm3 Absolute Neuts (auto) 1.6 (1.3-6.7) K/mm3 Absolute Nucleated RBC 0.000 (0.0-0.012) K/mm3 Nucleated RBC % 0.0 (0.0-0.2) % PT 13.4 (11.1-14.7) Seconds INR 1.0 APTT Cancelled 27.5 Sodium 136 L (137-145) mmol/L Potassium 3.6 (3.4-5.0) mmol/L Chloride 102 (98-107) mmol/L Carbon Dioxide 21 L (22-30) mmol/L Anion Gap 13 H (4-12) mmol/L BUN 11 D (7-17) mg/dL Creatinine 0.47 L (0.7-1.0) mg/dL Estim Creat Clear Calc 151 ml/min Estimated GFR > 60 (59 - ) Glucose 71 (65-110) mg/dL Calcium 9.4 (8.4-10.2) mg/dL Total Bilirubin 0.7 (0.2-1.3) mg/dL AST 19 (14-36) U/L ALT 11 (6-35) U/L Alkaline Phosphatase 51 (38-126) U/L Total Protein 8.0 (6.3-8.2) g/dL Albumin 4.3 (3.5-5.1) g/dL Beta HCG, Quant 62123.00 mIU/ML Urine Color Yellow (Yellow) Urine Appearance Cloudy H (Clear) Urine pH 5.5 (5.0-9.0) Ur Specific [place] 1.026 (1.001-1.035) Urine Protein Negative (Negative) mg/dL Urine Glucose (UA) Negative (Negative) mg/dL Urine Ketones Trace H (Negative) mg/dL Ur Blood (Man) Negative (Negative) Urine Nitrate Negative (Negative) Urine Bilirubin Negative (Negative) Urine Urobilinogen 1.0 (<2.0) mg/dL Leukocyte Esterase Rfl Negative (Negative) EARL/UL Urine RBC 0-2 (0-2) /hpf Urine WBC 0-5 (0-3) /hpf Ur Squamous Epith Cells Many H (Few) /hpf Urine Bacteria 1+ H /hpf Urine Casts 3-5 Blood Type B Positive Antibody Screen Negative Doses of RhIg Required 0 Discharge Plan Discharge Clinical Impression: Magdalene vaginitis, Asymptomatic bacteriuria during Qualifiers: Weeks of gestation: 8 weeks Qualified Code(s): Z3A.08 - 8 weeks gestation of Back pain Qualifiers: Back pain location: low back pain Chronicity: acute Back pain laterality: b ilateral Sciatica presence: without sciatica Qualified Code(s): M54.50 - Low back pain, unspecified Leukopenia Qualifiers: Leukopenia type: unspecified Qualified Code(s): D72.819 - Decreased white blood cell count, unspecified Patient Disposition: Home, Self-Care Condition: Stable Instructions: Antibiotic Form, (ED), Yeast Infection (ED), Back Pain (ED) Additional Instructions: You were evaluated in the emergency department for abdominal cramping, low back pain and vaginal discharge in . Your exam is consistent with a yeast infection, E please use the topical creams as directed. The ultrasound shows a single living fetus that is estimating 8 weeks and 0 days with ultrasound estimated date of delivery 10/26/2024. Your workup revealed a low white blood cell count and anemia, please follow-up with your OBGYN regarding this. Please take the vitamin as directed. Her urine had a small amount of bacteria, please take antibiotic as directed. Return to the emergency department if you develop vaginal bleeding, abdominal pain, fever, or other concerning symptoms. Take 500 mg of Tylenol every 6 hours as needed for pain. Please take an [id number] vitamin that contains folic acid. Patient Language: Turkmen Prescriptions: New cephalexin 500 mg capsule 500 mg PO Q6H Qty: 28 0RF clotrimazole 1 % cream 1 applic topical BID 7 Days Qty: 30 0RF Follow-up/Referrals: UNKNOWN,DOCTOR [Primary Care Provider] -
[2024-03-16 12:39] LABS: Add Urine Microscopic? YES; Appearance Urine Cloudy (Clear); Bacteria Urine 1+ /hpf; Bilirubin Urine Negative (Negative); Blood Urine Negative (Negative); Color Urine Yellow (Yellow); Glucose Urine UA Negative (Negative); Ketones Urine Trace mg/dL (Negative); Leukocyte Esterase Ur Negative LEU/UL (Negative); Nitrate Urine Negative (Negative); Protein Urine Negative (Negative); RBC Urine 0-2 /hpf (0-2); Specific Grav Ur 1.026 (1.001-1.035); Squamous Epithelial Cell Urine Many /hpf (Few); WBC Urine 0-5 /hpf (0-3); pH Urine 5.5 (5.0-9.0)
[2024-03-16] MEDS: CEPHALEXIN 500 MG CAPSULE PO (13:37)
[2024-03-16 13:40] VITALS: BP 93/56; PULSE 82; RESP 16; O2SAT 100
--- OUTSIDE RECORDS SUMMARY | 2024-03-18 17:54 | XMS_ITS | Clinical Summary ---
Author Organization [facility] Address [address] [place] [address] Care Team Providers Care Airport Baggage Screener Name Role Phone Unavailable Primary Care Provider Unavailabl e Source Comments [facility],non-owned Affiliates and Associated Physician Practices is amultiple site organization consisting of ambulatory clinics and hospital sitesin [place], [place], [place] and [place]. This disclosure is being madepursuant to the Care Everywhere program and may not contain all information available regarding this patient. Last updated [email or web address] [facility] Allergies Active Allergy Reactions Criticality Noted Date Comments Amoxicillin Urticaria 12/15/2011 Penicillins Urticaria 12/15/2011 Medications Be aware that medications may not be up to date on this document. Always verify current medications with the patient. No known medications Active Problems Problem Noted Date Diagnosed Date anomaly suspected but not found 03/03/2015 cardiac arrhythmia 01/01/2012 Overview (07/18/2014): Thought to be PACs ECHO 01/13/12: normal Chlamydia infection complicating 12/31 Overview (01/01/2012): Needs RICHY, minimum of three weeks from 12/14 Research study patient 12/16/2011 Overview (12/16/2011): This patient is consented and enrolled in the Umbilical Cord Milking Research study. If this patient delivers between 24 and 27 6/7 weeks gestation, the OB chief will supervise the opening of randomization packet in the infant resuscitation room (by the telephone). If urgent concerns, please contact Dr. Shane Lee, study PI, at anytime 16/09. Supervision of other high-risk 012 Overview (01/01/2015): PNL: B+/I/-/- Ab: neg GCT: 83 HIV: NR GBS: neg 12/14 Dating: LMP H/H/Plt: 11.8/35.1 Hgb Elec: UDS: QS: CF: Pap: Gc/Chl: +chlamydia UCx: labor 12/15/2011 Overview (01/01/2012): CL 12/14 = 2.7cm S/p steroids Family History Medical History Relation Name Comments Diabetes Maternal Grandfather Cancer Maternal Grandmother Relation Name Status Comments Maternal Grandfather Maternal Grandmother Social History Tobacco Use Types Packs/Day Years Used Date Smoking Tobacco: Never Smokeless Tobacco: Never Alcohol Use Standard Drinks/Week Comments No 0 (1 standard drink = 0.6 oz pur e alcohol) Sex and Gender Information Value Date Recorded Sex Assigned at Not on file Gender Identity Not on file Sexual Orientation Not on file Last Filed Vital Signs Vital Sign Reading Time Taken Comments Blood Pressure 116/74 11/27/2019 11:05 AM CDT Pulse 100 11/27/2019 11:05 AM CDT Temperature 36.7 ??C (98 ??F) 11/27/2019 11:05 AM CDT Respiratory Rate 19 11/27/2019 11:05 AM CDT Oxygen Saturation 98% 11/27/2019 11:05 AM CDT Inhaled Oxygen Concentration - - Weight 93 kg (205 lb) 11/27/2019 11:05 AM CDT Height 160 cm (5' 3 ) 11/27/2019 11:05 AM CDT Body Mass Index 36.31 11/27/2019 11:05 AM CDT Plan of Treatment Health Maintenance Due Date Last Done Comments PAP SMEAR 1993 HIV SCREENING 01/23/2008 HEPATITIS C SCREENING 01/18/2011 DTAP/TDAP/TD VACCINES (1 - Tdap) 01/23/2012 HEPATITIS B VACCINE (1 of 3 - 19+ 3-dose series) 01/23/2012 COVID-19 VACCINE (1 - 2024-2 5 season) 2023 INFLUENZA VACCINE (#1) 2023 DEPRESSION SCREENING 02/25/2024 ZOSTER VACCINE (1 of 2) 2043 HIB VACCINE Aged Out No longer eligi ble based on patient's age to complete this topic HPV VACCINE Aged Out No longer eligi ble based on patient's age to complete this topic MENINGOCOCCAL (Group B) VACCINE Aged Out No longer eligible based on patient's age to complete this topic MENINGOCOCCAL VACCINE Aged Out No mukesh pelon eligible based on patient's age to complete this topic PNEUMOCOCCAL VACCINE Aged Out No long er eligible based on patient's age to complete this topic Advance Directives * FULL RESUSCITATION (Latest Code Status on File) Date Activated Date Inactivated Comments 12/15/2011 12:54 PM 12/18/2011 2:56 PM
--- OUTSIDE RECORDS SUMMARY | 2024-03-18 17:54 | XMS_ITS | Referral Summary ---
Author Organization [facility] [employer] Address [address] [place] [address] Care Team Providers Care Spout Liner Name Role Phone Unavailable Primary Care Provider Unavailabl e Source Comments [facility] [employer] [facility],non-owned Affiliates and Associated Physician Practices is amultiple site organization consisting of ambulatory clinics and hospital sitesin [place], [place], [place] and [place]. This disclosure is being madepursuant to the Care Everywhere program and may not contain all information available regarding this patient. Last updated [email or web address] Allergies Active Allergy Reactions Criticality Noted Date [...] (01/01/2012): CL 12/14 = 2.7cm S/p steroids Social History Tobacco Use Types Packs/Day Years [...] 11/27/2019 11:05 AM CDT Plan of Treatment Not on file Advance Directives * FULL RESUSCITATION (Latest Code Status on File) Date Activated Date Inactivated Comments 12/15/2011 12:54 PM 12/18/2011 2:56 PM
--- OUTSIDE RECORDS SUMMARY | 2024-03-18 17:54 | XMS_ITS | Patient Health Summary ---
Author Organization [facility] Address [address] [place] [address] Care Team Providers Care Teaching Artist Name Role Phone Unavailable Primary Care Provider Unavailabl e Note from [facility],non-owned Affiliates and Associated Physician Practices is amultiple site organization consisting of ambulatory clinics and hospital sitesin [place], [place], [place] and [place]. This disclosure is being madepursuant to the Care Everywhere program and may not contain all information available regarding this patient. Last updated 17.[facility] Allergies * Amoxicillin(Urticaria) * Penicillins(Urticaria) Medications Be aware that medications may not be up to date on this document. Always verify current medications with the patient. No known medications Active Problems Problem Noted Date Diagnosed Date anomaly suspected but not found 03/03/2015 cardiac arrhythmia 01/01/2012 Chlamydia infection complicating 12/31 Research study patient 12/16/2011 Supervision of other high-risk 012 labor 12/15/2011 Social History Tobacco Use Types Packs/Day Years [...] Mass Index 36.31 11/27/2019 11:05 AM CDT Procedures * SONOGRAM - COMPLETE(Performed 03/03/2015) Performed for renal anomaly, not applicable or unspecified fetus * IMAGING/RADIOLOGY/XRAY RESULTS ORDER(Performed 06/30/2012) * ECHO CONSULT - (Performed 01/13/2012) Performed for arrhythmia, Supervision of other high-risk (HCC) * CBC W AUTO DIFFERENTIAL(Performed 01/01/2012) * RPR(Performed 01/01/2012) * GLUCOSE CHALLENGE(Performed 01/01/2012) * GLUCOSE PROTEIN KETONE URINE - POINT OF CAR(Performed 01/01/2012) * LAB RESULTS ORDER(Performed 12/23/2011) * CARDIAC RHYTHM STRIP ORDER(Performed 12/23/2011) * GLUCOSE - POINT OF CARE(Performed 12/18/2011) * GLUCOSE - POINT OF CARE(Performed 12/18/2011) * GLUCOSE - POINT OF CARE(Performed 12/18/2011) * GLUCOSE - POINT OF CARE(Performed 12/18/2011) * GLUCOSE - POINT OF CARE(Performed 12/17/2011) * GLUCOSE - POINT OF CARE(Performed 12/17/2011) * GLUCOSE - POINT OF CARE(Performed 12/17/2011) * GLUCOSE - POINT OF CARE(Performed 12/17/2011) * SONOGRAM - LIMITED(Performed 12/17/2011) * GLUCOSE - POINT OF CARE(Performed 12/17/2011) * GLUCOSE - POINT OF CARE(Performed 12/17/2011) * GLUCOSE - POINT OF CARE(Performed 12/16/2011) * GLUCOSE - POINT OF CARE(Performed 12/16/2011) * GLUCOSE - POINT OF CARE(Performed 12/16/2011) * GLUCOSE - POINT OF CARE(Performed 12/16/2011) * SONOGRAM - COMPLETE(Performed 12/16/2011) * GLUCOSE - POINT OF CARE(Performed 12/16/2011) * GLUCOSE - POINT OF CARE(Performed 12/16/2011) * GLUCOSE - POINT OF CARE(Performed 12/15/2011) * GLUCOSE - POINT OF CARE(Performed 12/15/2011) * GLUCOSE PROTEIN KETONE URINE - POINT OF CAR(Performed 12/15/2011) * GLUCOSE - POINT OF CARE(Performed 12/15/2011) * BLOOD TYPE VERIFICATION(Performed 12/15/2011) * GLUCOSE - POINT OF CARE(Performed 12/15/2011) * TYPE + SCREEN PANEL(Performed 12/15/2011) * URINALYSIS REFLEX TO MICROSCOPIC NO CULTURE(Performed 12/15/2011) * DRUG SCREEN URINE TRIAGE PANEL(Performed 12/15/2011) * BASIC METABOLIC PANEL (CALCIUM TOTAL)(Performed 12/15/2011) * CBC W AUTO DIFFERENTIAL(Performed 12/15/2011) * CULTURE STREP B(Performed 12/15/2011) * CHLAMYDIA + GC AMPLIFIED PROBE(Performed 12/15/2011) * CULTURE URINE(Performed 12/15/2011) Results * SONOGRAM - COMPLETE (03/03/2015 2:41 PM HEAD NECK SURGEON) Only the most recent of2 resultswithin the time period is included. Anatomical Region Laterality Modality Other 03/03/2015 2:41 PM HEAD NECK SURGEON Narrative 03/03/2015 3:37 PM HEAD NECK SURGEON ? [facility] ?PHONE: ??FAX: ? Pat. Name: ?JOHAN MARQUES No: ?[id number] Study Date: ?? 03/03/2015 ??2:41pm , Age: ? 1995, 20 Pregnancies: ?? 3, Para 2 Height: ? 63 in Weight: ? 182 lb LMP: ?09/30/2014 GA by LMP: ?22w0d GA by US: ? 22w0d GA Selected: ??22w0d (LMP) ROCIO: ?07/07/2015 Referring MD: ARIAN WHITTEN MD Maintenance Custodian: ??Gina Balderas RDMS CPT4: ? 58556 BMI: ?32.24 Hist/Ind: ? Renal pelvis dilation on prior US ?Class I obesity MEASUREMENTS & AGE ? GROWTH EVALUATION Measurement ??GA ? Range ? Srce %for GA Ratios ----- ---- ------- BPD ??5.1 cm 21w4d (79b4b-61r7j) Hadl BPD 38% FL/BPD 0.71 HC ??19.6 cm 21w6d (13z0i-05z0k) Hadl HC ??45% FL/AC ??0.22 (0.20 - 0.24) AC ??16.4 cm 21w3d (36l6d-52u8p) Hadl AC ??39% HC/AC ??1.19 (1.04 - 1.23) FL ?? 3.6 cm 21w3d (96y0j-75y0u) Hadl FL ??37% CI ? 0.73 (0.70 - 0.86) HL ?? 3.9 cm 23w6d (12p6n-89n0b) Vasyl HL ??81% GA for sonogram 22w0d (68i9w-65j0p) ?? Weight Estimate: based on (HL,BPD,HC,AC,FL) Avg ? Weight: 430 gm (367-493) Hadlock ? : 0lbs, 15oz ? Normal: 479 gm (359-598) Hadlock ? Wt% ? 31% for 22w0d Heart Rate: 138 bpm Amniotic Fluid Index: 05.8cm (Deepest Pocket) CLINICAL SUMMARY Study Number: ??1 A peres fetus is identified in vertex presentation. ??The amniotic fluid volume is normal. ??The placenta is anterior. IMPRESSION: ?? 1) Peres gestation, 22w 2) Biometry is consistent with the LMP-based ROCIO of 07/07/15 3) No structural abnormalities were detected on detailed anatomic survey 4) Both renal pelvis measurements are within normal limits NOTE: The patient was advised that ultrasound does not allow detection of all structural or chromosomal abnormalities. ?? RECOMMEND: ?? Follow up ultrasound only as clinically indicated Thank you for allowing us the opportunity to care for your patient. Aimee Mckeon MD <Electronic Signature> ??03/03/2015 03:37pm Arian Whitten MD [facility] ORDERABLES * IMAGING/RADIOLOGY/XRAY RESULTS ORDER (06/30/2012 6:29 AM CDT) Anatomical Region Laterality Modality Other Narrative Transcriptions Document, Scanned - 12/23/2011 10:34 AM CDT Document, Scanned - 06/30/2012 6:29 AM CDT Document, Scanned - 06/30/2012 6:29 AM CDT Scanned Document IMAGING * ECHO CONSULT - (01/13/2012 3:29 PM HEAD NECK SURGEON) 01/13/2012 3:29 PM HEAD NECK SURGEON Narrative [facility] - 01/14/2012 2:47 PM HEAD NECK SURGEON , Echocardiogram 2D, M-mode, Doppler, and Color Doppler Name: JOHAN MARQUES MR #: [id number] Study date: 01/13/2012 Age: 16 years : 1995 Gender: Female Ht: / Wt: / BSA: HR: BP: / age: 31 weeks ROCIO: 03/15/2012 Maternal age: 16 years TRAVELING REPRESENTATIVE: ??Lulú Jensen MD PEDIATRIC ECHO BLUE LEATHER SETTER: ??MEL Taylor REFERRING PHYSICIAN: ??Pranay Magana MD Allergies: PENICILLINS, AMOXICILLIN History: arrhythmia Procedure: The procedure was performed in the echo lab. type: single fetus. The fetus is in breech presentation. rhythm: The rhythm was normal with 1:1 AV conduction. The NV interval was 118 msec. Occasional irregular beats noted, likely premature atrial beats. morphology: There was normal flow velocity across the outflow tract. Anatomic relationships: There was a normal atrio-ventricular connection. There was a normal ventriculo-arterial connection. Normally related great vessels. Systemic veins: There was normal systemic venous return. Ductus venosus: Flow in the ductus venosus was normal. Umbilical vein: The umbilical vein flow pattern was normal. Pulmonary veins: At least two pulmonary veins drain to the left atrium. Right atrium: Size was normal. Left atrium: Size was normal. Atrial septum: The foramen ovale flow direction was right to left. Tricuspid valve: The valve structure was normal. Doppler: The transtricuspid velocity was within the normal range. There was no evidence for tricuspid stenosis. There was no regurgitation. Mitral valve: Valve structure was normal. Doppler: The transmitral velocity was within the normal range. There was no evidence for stenosis. There was no regurgitation. Right ventricle: The cavity size was normal. Wall thickness was normal. Systolic function was normal. Left ventricle: The cavity size was normal. Wall thickness was normal. Systolic function was normal. Ventricular septum: Thickness was normal. The septum was intact. Pulmonic valve: Doppler: The transpulmonic velocity was within the normal range. There was no regurgitation. Aortic valve: Doppler: Transaortic velocity was within the normal range. There was no stenosis. There was no regurgitation. Pulmonary artery: The main pulmonary artery was normal, with normal-sized, confluent proximal branch pulmonary arteries. Aorta: A normal aortic arch was appreciated. Systemic arteries: The umbilical artery flow pattern was normal. Extracardiac shunting: Ductus arteriosus: The antegrade flow velocity in the ductal arch was normal. A normal ductus arteriosus was appreciated. Pericardium: There was no pericardial effusion. Impressions: - ??Diagnoses: The echocardiogram is within normal limits, however small atrial and ventricular septal defects, and persistent ductus arteriosus cannot be excluded as findings. Prepared and signed by Lulú Jensen MD Signed 01/14/2012 14:46:28 Procedure Note 01/14/2012 , Echocardiogram 2D, M-mode, Doppler, and Color Doppler Name: JOHAN MARQUES MR #: [id number] Study date: 01/13/2012 Age: 16 years : 1995 Gender: Female Ht: / Wt: / BSA: HR: BP: / age: 31 weeks ROCIO: 03/15/2012 Maternal age: 16 years TRAVELING REPRESENTATIVE: Lulú Jensen MD PEDIATRIC ECHO BLUE LEATHER SETTER: MEL Taylor REFERRING PHYSICIAN: Pranay Magana MD Allergies: PENICILLINS, AMOXICILLIN History: arrhythmia Procedure: The procedure was performed in the echo lab. type: single fetus. The fetus is in breech presentation. rhythm: The rhythm was normal with 1:1 AV conduction. The NV interval was 118 msec. Occasional irregular beats noted, likely premature atrial beats. morphology: There was normal flow velocity across the outflow tract. Anatomic relationships: There was a normal atrio-ventricular connection. There was a normal ventriculo-arterial connection. Normally related great vessels. Systemic veins: There was normal systemic venous return. Ductus venosus: Flow in the ductus venosus was normal. Umbilical vein: The umbilical vein flow pattern was normal. Pulmonary veins: At least two pulmonary veins drain to the left atrium. Right atrium: Size was normal. Left atrium: Size was normal. Atrial septum: The foramen ovale flow direction was right to left. Tricuspid valve: The valve structure was normal. Doppler: The transtricuspid velocity was within the normal range. There was no evidence for tricuspid stenosis. There was no regurgitation. Mitral valve: Valve structure was normal. Doppler: The transmitral velocity was within the normal range. There was no evidence for stenosis. There was no regurgitation. Right ventricle: The cavity size was normal. Wall thickness was normal. Systolic function was normal. Left ventricle: The cavity size was normal. Wall thickness was normal. Systolic function was normal. Ventricular septum: Thickness was normal. The septum was intact. Pulmonic valve: Doppler: The transpulmonic velocity was within the normal range. There was no regurgitation. Aortic valve: Doppler: Transaortic velocity was within the normal range. There was no stenosis. There was no regurgitation. Pulmonary artery: The main pulmonary artery was normal, with normal-sized, confluent proximal branch pulmonary arteries. Aorta: A normal aortic arch was appreciated. Systemic arteries: The umbilical artery flow pattern was normal. Extracardiac shunting: Ductus arteriosus: The antegrade flow velocity in the ductal arch was normal. A normal ductus arteriosus was appreciated. Pericardium: There was no pericardial effusion. Impressions: - Diagnoses: The echocardiogram is within normal limits, however small atrial and ventricular septal defects, and persistent ductus arteriosus cannot be excluded as findings. Prepared and signed by Lulú Jensen MD Signed 01/14/2012 14:46:28 Provider Unknown ECHO ORDERABLES [facility] [address] [place] [address] * RPR (01/01/2012 4:10 PM HEAD NECK SURGEON) Pathologist [facility] RPR Non-Reacti ve Non Reactive [facility] Blood specimen (specimen) BLOOD SPECIMEN / Unknown 01/01/2012 4:10 PM HEAD NECK SURGEON 01/01/2012 4:39 PM HEAD NECK SURGEON Elaine Rae MD LAB - CHEMISTR Y ORDERABLES [facility] [address] [place] [address] * (ABNORMAL) CBC W AUTO DIFFERENTIAL (01/01/2012 4:10 PM HEAD NECK SURGEON) Only the most recent of2 resultswithin the time period is included. Pathologist [facility] WBC 6.2 4.0 - 10.0 K/CUMM [facility] RBC 4.14 3.80 - 5.80 M/CUMM [facility] Hemoglobin 12.1 12.0 - 16.0 gm/dL [facility] Hematocrit 34.6(L) 37.0 - 47.0 % [facility] MCV 83.6 80.0 - 100.0 fl [facility] MCH 29.2 26.0 - 34.0 pg [facility] MCHC 35.0 31.0 - 37.0 gm/dL [facility] Platelet Count 176 150 - 400 K/CUMM [facility] RDW 13.9 11.5 - 14.5 % [facility] Granulocytes % 63.2 50 - 70 % [facility] Lymphocytes % 25.8 20 - 40 % [facility] Monocytes % 9.9 0 - 12 % [facility] Eosinophils % 0.8 0 - 5 % [facility] Basophils % 0.3 0 - 2 % [facility] Granulocytes Absolute 3.90 2.00 - 7.00 x1000/cmm [facility] Lymphocytes Absolute 1.59 0.80 - 4.00 x1000/cmm [facility] Monocytes Absolute 0.61 0.00 - 1.20 x1000/cmm [facility] Eosinophils Absolute 0.05 0.00 - 0.50 x1000/cmm [facility] Basophils Absolute 0.02 0.00 - 0.20 x1000/cmm [facility] Blood specimen (specimen) BLOOD SPECIMEN / Unknown 01/01/2012 4:10 PM HEAD NECK SURGEON 01/01/2012 4:39 PM HEAD NECK SURGEON Elaine Rae MD LAB - HEMATOLO GY ORDERABLES Performing Organization Address [facility] Co de Phone Number [facility] [address] [place] [address] * GLUCOSE CHALLENGE (01/01/2012 4:10 PM HEAD NECK SURGEON) Glucose Challenge 83 mg/dl [facility] Glucose Challenge Time 1610 [facility] BLOOD SPECIMEN / Unknown 01/01/2012 4:10 PM HEAD NECK SURGEON 01/01/2012 4:39 PM HEAD NECK SURGEON Elaine Rae MD LAB - CHEMISTR Y ORDERABLES Performing Organization Address [facility] de Phone Number [facility] [address] [place] [phone] * GLUCOSE PROTEIN KETONE URINE - POINT OF CAR (01/01/2012 2:54 PM HEAD NECK SURGEON) Only the most recent of2 resultswithin the time period is included. Glucose UA neg Negative [facility] Protein UA tr Negative [facility] Ketone UA neg Negative [facility] QC Verified yes Yes [facility] POC T [facility] Urine specimen (specimen) URINE / Unknown 01/01/2012 2:54 PM HEAD NECK SURGEON Elaine Rae MD LAB - POINT OF CARE ORDERABLES Performing Organization Address [facility] Co de Phone Number [place] [address] * LAB RESULTS ORDER (12/23/2011 10:34 AM CDT) Narrative Transcriptions Document, Scanned - 12/23/2011 10:34 AM CDT Scanned Document LAB - THERAPEUTIC DR UG MONITORING ORDERABLES * CARDIAC RHYTHM STRIP ORDER (12/23/2011 10:34 AM CDT) Narrative Transcriptions Document, Scanned - 12/23/2011 10:34 AM CDT Scanned Document [facility] ORD ERABLES * GLUCOSE - POINT OF CARE (12/18/2011 10:38 AM CDT) Only the most recent of20 resultswithin the time period is included. Glucose WB/POC 95 70 - 110 mg/dl [facility] BLOOD SPECIMEN / Unknown 12/18/2011 10:38 AM CDT 12/19/2011 1:00 AM CDT Susan De MD LAB - POINT OF C ARE ORDERABLES Performing Organization Address City/State/[facility] Co de Phone Number [facility] [address] [place] [address] * SONOGRAM - LIMITED (12/17/2011 10:45 AM CDT) Anatomical Region Laterality Modality Other 12/17/2011 10:4 5 AM CDT Narrative 12/18/2011 8:23 AM CDT ? [facility] ? [facility] ?PHONE: ??FAX: Pat. Name: ?JOHAN MARQUES. No: ?[id number] Study Date: ?? 12/17/2011 ??10:45am , Age: ? 1995, 16 Pregnancies: ?? 1 LMP: ?Unknown GA by 1st: ?27w2d GA Selected: ??27w2d (From Known E) ROCIO: ?03/15/2012 Referring MD: ARIAN WHITTEN MD Maintenance Custodian: ??Gina Balderas RDMS Hist/Ind: ? Arrhythmia Heart Rate: 121.0 bpm Amniotic Fluid Index: 16.9 (09.5-22.7) Q1: 6.5 ?? Q2: 2.4 ?? Q3: 4.0 ?? Q4: 4.0 ?? CLINICAL SUMMARY Study Number: 2 A peres fetus is identified in cephalic presentation. ??The placenta is posterior, Grade 1. ??The amniotic fluid volume is within normal limits. ?Probable PAC's are noted on M-mode doppler. IMPRESSION: ?? Single, live, IUP at 27w2d Frequent premature atrial contractions RECOMMEND: ?? Weekly evaluation of FHR recommended until arrythmia has resolved for at least two sequential weeks. Thank you for allowing us the opportunity to care for your patient. cc: ??Inpatient at time of study ? Syeda Shanks MD ?<Electronic Signature> ??12/17/2011 03:56pm Revised Marion Draper MD [facility] ORDERABLES * BLOOD TYPE VERIFICATION (12/15/2011 2:05 PM CDT) ABO Rh B Pos SEE BELOW [facility] Comment: Weak D testing is not performed at [facility] BLOOD SPECIMEN / Unknown 12/15/2011 2:05 PM CDT 12/15/2011 2:15 PM CDT Tamika Patino MD LAB - BLOOD BA NK ORDERABLES Performing Organization Address [facility]/ZIP Co de Phone Number [facility] [address] [place] [phone] * (ABNORMAL) URINALYSIS ROUTINE AUTO (12/15/2011 1:15 PM CDT) Source Clean Catch [facility] Color UA Yellow SEE BELOW [facility] Comment: Yellow Straw Dark Yellow Character UA Clear [facility] Glucose UA TRACE(H) NEGATIVE mg/dl [facility] Bilirubin UA NEGATIVE NEGATIVE [facility] Ketone UA NEGATIVE NEGATIVE mg/dl [facility] Specific [place] UA >=1.030(H) 1.003 - 1.030 [facility] Blood UA TRACE-INTAC T(H) NEGATIVE [facility] pH UA 6.0 5.0 - 8.0 [facility] Protein UA NEGATIVE NEGATIVE mg/dl [facility] Urobilinogen UA 1.0 0.1 - 1.0 [place] Units/dl [facility] Nitrite UA NEGATIVE NEGATIVE [facility] Leukocyte UA TRACE(H) NEGATIVE [facility] Reducing Substances UA Negative Negative gm/dL [facility] WBC UA 0-2 0 - 5 HPF [facility] RBC UA 0-2 0 - 5 HPF [facility] Epithelial Cell UA 0-2 0 - 5 HPF [facility] Urine specimen (specimen) URINE SPECIMEN OBTAINED BY CLEAN CATCH PROCEDURE / Unknown 12/15/2011 1:15 PM CDT 12/15/2011 1:28 PM CDT Elaine Rae MD LAB - URINALYS IS ORDERABLES Performing Organization Address City/[facility]/ZIP Co de Phone Number [facility] [address] [place] [phone] * CHLAMYDIA + GC AMPLIFIED PROBE (12/15/2011 1:15 PM CDT) Chlamydia trachomatis Amplified Probe POSITIVE [facility] GC Amplified Probe Negative [facility] Comment Amplified Probe [facility] Comment: Results based on detection/no detection of RNA by amplified method. Additional Comment [facility] Comment: Additional Results not in our Test Definition Called to Read christofer Faxed to Clinic + EDCHD 12/15/ ? Miscellaneous samples (specimen) PART OF UTERINE CERVIX / Unknown 12/15/2011 1:15 PM CDT 12/15/2011 1:28 PM CDT Narrative [facility] - 12/16/2011 2:41 PM CDT Performed By [facility] ? [address] ? [place] [address] Elaine Rae MD LAB - MICROBIO LOGY ORDERABLES Performing Organization Address City/[facility] Co de Phone Number [facility] [address] [place] [phone] * CULTURE URINE (12/15/2011 1:15 PM CDT) Result [facility] Comment: Final CULTURE No Growth (<1000 CFU/mL) Urine specimen (specimen) URINE SPECIMEN OBTAINED BY CLEAN CATCH PROCEDURE / Unknown 12/15/2011 1:15 PM CDT 12/15/2011 1:28 PM CDT Narrative [facility] - 12/17/2011 9:19 AM CDT Performed By [facility];[address];[place] [address] Elaine Rae MD LAB - MICROBIO LOGY ORDERABLES Performing Organization Address [facility] Co de Phone Number [facility] [address] [place] [phone] * CULTURE STREP B (12/15/2011 1:15 PM CDT) Result [facility] Comment: Final NO growth of beta-hemolytic ?? strep Group B Miscellaneous samples (specimen) PART OF UTERINE CERVIX / Unknown 12/15/2011 1:15 PM CDT 12/15/2011 1:28 PM CDT Narrative [facility] - 12/18/2011 10:48 AM CDT Performed By [facility];[address];[place] [address] Elaine Rae MD LAB - MICROBIO LOGY ORDERABLES Performing Organization Address [facility] Co de Phone Number [facility] [address] [place] [phone] * TYPE + SCREEN PANEL (12/15/2011 1:15 PM CDT) ABO Rh B Pos SEE BELOW [facility] Comment: Weak D testing is not performed at [facility] Antibody Screen Pos [facility] Antibody Identification No Clinical Significant Antibody [facility] Comment Corrected Report [facility] Previous History Check Done No historical blood type. ??Blood type confirmation needed prior to transfusion. [facility] Miscellaneous samples (specimen) BLOOD SPECIMEN / Unknown 12/15/2011 1:15 PM CDT 12/15/2011 1:29 PM CDT Elaine Rae MD LAB - BLOOD BA NK ORDERABLES Performing Organization Address [facility] de Phone Number [facility] [address] [place] [phone] * (ABNORMAL) BASIC METABOLIC PANEL (CALCIUM TOTAL) (12/15/2011 1:15 PM CDT) Sodium 134(L) 136 - 145 mmol/L [facility] Potassium 3.7 3.5 - 5.1 mmol/L [facility] Chloride 104 98 - 107 mmol/L [facility] BUN 2(L) 7 - 21.0 mg/dl [facility] Creatinine 0.37(L) 0.5 - 1.3 mg/dl [facility] Glucose 120(H) 65 - 105 mg/dl [facility] CO2 21(L) 22 - 30 mmol/L [facility] Calcium 7.4(L) 8.5 - 10.1 mg/dl [facility] eGFR by MDRD >60 Not applicable <18 y mL/min/1.73m2 [facility] Comment eGFR [facility] Comment: ? The eGFR does not apply to patients who are younger than ? 18 or older than 70. Blood specimen (specimen) BLOOD SPECIMEN / Unknown 12/15/2011 1:15 PM CDT 12/15/2011 1:29 PM CDT Elaine Rae MD LAB - CHEMISTR Y ORDERABLES Performing Organization Address [facility] de Phone Number [facility] [address] [place] [phone] * DRUG SCREEN TRIAGE PANEL (12/15/2011 1:15 PM CDT) Phencyclidine Screen Urine NOT DETECTED 25 ng/dl Cutoff [facility] Benzodiazepines Screen Urine NOT DETECTED 200 ng/ml Cutoff [facility] Cocaine Screen Urine NOT DETECTED 300 ng/ml Cutoff [facility] Amphetamines Screen Urine NOT DETECTED 1000 ng/ml Cutoff [facility] Cannabinoids Screen Urine NOT DETECTED 50 ng/ml Cutoff [facility] Opiate Screen Urine NOT DETECTED 300 ng/ml Cutoff [facility] Barbiturates Screen Urine NOT DETECTED 200 ng/ml Cutoff [facility] Disclaimer Urine Triage [facility] Comment: This drug screen is designed for MEDICAL purposes only. ??It is not to be used for legal purposes, including but not limited to worker's compensation, police investigations, occupational issues, and child custody. URINE / Unknown 12/15/2011 1 :15 PM CDT 12/15/2011 1:29 PM CDT Elaine Rae MD LAB - URINE CH EMISTRY ORDERABLES Performing Organization Address [facility] de Phone Number [facility] [address] [place] [address]
== END 2024-03-16 13:41 | disposition home or self-care (01) ==
PROVIDERS: Emergency Provider Physician Assistant
DX: O26.891 Other specified pregnancy related conditions, first trimester (principal); B37.31 Acute candidiasis of vulva and vagina; R82.71 Bacteriuria; M54.50 Low back pain, unspecified; D72.819 Decreased white blood cell count, unspecified; Z3A.09 9 weeks gestation of pregnancy
CPT/HCPCS: 36415; 76801; 76817; 80053; 81001; 84702; 85025; 85461; 85610; 85730; 86850; 86900; 86901; 96360; 99284; A9270; J7030

== ENCOUNTER 2024-07-04 14:05 | Outpatient (CLI) | payer BC, MEDICAID, SELFPAY ==
[2024-07-04] VITALS (8 sets, daily range): BP systolic 90–102; BP diastolic 55–60; PULSE 25–97; O2SAT 78–100
--- OUTSIDE RECORDS SUMMARY | 2024-07-04 14:33 | XMS_ITS | Clinical Summary ---
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 Name Role Phone Unavailable Primary Care Provider Unavailabl e Allergies Active Allergy Reactions Criticality Noted Date Comments Amoxicillin Rash Low 02/06/2012 Medications NIFEDIPINE (PROCARDIA ORAL) Every six hours for contractions Active Active Problems Comments Yes No known active problems Encounters Date Type Department Care Team Description 06/21/2024 11:00 AM CDT Initial [facility] Maternal and Medicine [place] [address] [facility] [address] [place] [address] Susan Romero MD Abnormal ultrasound (Primary Dx); 21 weeks gestation of 06/21/2024 9:46 AM CDT - 06/21/2024 11:59 PM CDT Hospital Encounter [facility] Maternal and Ground Floor S [facility] [address] [place] [phone] Yeison Tinsley MD Discharge Disposition: Home or Self Care 06/09/2024 Orders Only [facility] Maternal and Ground Floor S [facility] [address] [place] [phone] Yeison Tinsley MD Abnormal ultrasonic finding on screening of mother (Primary Dx) 06/08/2024 External Device Data [facility] ABSTRACTION Provider, Abstract 06/07/2024 12:52 PM CDT - 06/07/2024 11:59 PM CDT Hospital Encounter [facility] [address] [place] [phone] Yeison Tinsley MD Discharge Disposition: Home or Self Care from Last 3 Months Social History Tobacco Use Types Packs/Day Years Used Date Smoking Tobacco: Never Smokeless Tobacco: Never Alcohol Use Standard Drinks/Week Comments No 0 (1 standard drink = 0.6 oz pur e alcohol) Comments Yes Sex and Gender Information Value Date Recorded Sex Assigned at Not on file 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 Gender Identity Not on file Sexual Orientation Not on file Occupation Industry Job Start Date Job End Date Not on file Not on file Not on file Not on file Last Filed Vital Signs Vital Sign Reading Time Taken Comments Blood Pressure 113/69 06/21/2024 10:32 AM CDT Pulse 80 06/21/2024 10:32 AM CDT Temperature - - Respiratory Rate - - Oxygen Saturation - - Inhaled Oxygen Concentration - - Weight 86.6 kg (191 lb) 06/21/2024 10:32 AM CDT Height 160 cm (5' 3 ) 06/21/2024 10:32 AM CDT Body Mass Index 33.83 06/21/2024 10:32 AM CDT Plan of Treatment Upcoming Encounters Date Type Department Care Team (Late st Contact Info) Description 07/06/2024 11:00 AM CDT Appointment [facility] Maternal and Ground Floor [address] [place] [phone] Susan Romero MD [address] [facility] [address] [place] [address] Health Maintenance Due Date Last Done Comments DTAP/TDAP/TD VACCINES (1 - Tdap) 01/23/2012 HEPATITIS B VACCINES (1 of 3 - 19+ 3-dose series) 01/23/2012 HPV/Cotest (21-29) 2014 CERVICAL CANCER SCREENING 2023 HPV/Cotest (30-65) 2023 PAP SMEAR 2023 INFLUENZA VACCINE (#1) 2023 RSV VACCINE (60+ or ) (1 - 1-dose 75+ series) 01/23/2068 HPV VACCINES Aged Out No longer eligi ble based on patient's age to complete this topic Procedures Procedure Name Priority Date/Time Associated Diagnosis Comments US OB FOLLOW UP PER FETUS Routine 06/21/2024 10:24 AM CDT Abnormal ultrasound US OB DETAIL SINGLE GEST Routine 06/07/2024 2:10 PM CDT screening for malformation using ultrasonics from Last 3 Months Results * US OB FOLLOW UP PER FETUS (06/21/2024 10:24 AM CDT) Anatomical Region Laterality Modality Pelvis Ultrasound 06/21/2024 9:04 AM CDT Narrative 06/21/2024 10:29 AM CDT [facility] ----- Pat. Name: WOODROW THEODORE Study Date: 06/21/2024 9:04am Pat. NO: [id number] Referring MD: YEISON TINSLEY MD Site: [facility] Wash And Greaser: Rebecca Gary RDMS : 1995 Age: 29 ----- INDICATION ----- Screening Follow-Up CODING ----- Diagnoses Z3A.21: Weeks of gestation Z36.2: Encounter for other screening follow-up Procedures 36921: Ultrasound, uterus, real time with image documentation, follow up, transabdominal approach per fetus HISTORY ----- OB History 4. Para 3 T3L3 METHOD ----- Transabdominal ultrasound examination ----- Jones . Number of fetuses: 1 DATING ----- GA by prior assessment 21 w + 6 d ROCIO by prior assessment: 10/26/2024 Method of dating: Restore dating from previous exam Assigned: based on stated ROCIO, selected on 06/07/2024 Assigned GA 21 w + 6 d Assigned ROCIO: 10/26/2024 GENERAL EVALUATION ----- Cardiac activity present. FHR 148 bpm. movements: present. Presentation: cephalic Placenta: Placental site: posterior Umbilical cord: Cord vessels: 3 vessel cord. Insertion site: placental insertion: normal Amniotic fluid: Amount of AF: normal amount. MVP 5.5 cm ANATOMY ----- The following structures appear normal: Heart / Thorax Cardiac rhythm. Abdomen Stomach. Bladder. Spine Cervical spine. Thoracic spine. Lumbar spine. Sacral spine. GROWTH OVERVIEW ----- Exam date GA BPD (mm) HC (mm) AC (mm) FL (mm) HL (mm) EFW (g) 06/07/2024 19w 6d 46.4 57% 179.6 68% 155.1 72% 34.5 77% 32.1 84% 371 87% COMMENT ----- Patient's name and date of were verified by the entrepreneurship program director prior to the exam IMPRESSION ----- Jones @ 21w 6d referred for targeted ultrasound for bilateral urinary tract dilation. - The fetus is in cephalic lie. - Amniotic fluid indices are within normal limits. - There is urinary tract dilation noted in both kidneys, 10cm on the right, 5mm on the left. The dilation appears to extend to the calyces on the right, but ureteral dilation is not appreciated. The renal parenchyma is otherwise unremarkable without dysplastic or cystic features on either side. - The spine is unremarkable today. A care consultation followed the ultrasound. The patient was enrolled in the Care Team. A follow up is scheduled in 2 weeks to follow growth and to reassess the kidneys. Thank you for allowing us to participate in the care of this patient. Procedure Note Susan Romero MD - 06/21/2024 [facility] ----- Ashia. Name:Bandar THEODORE Date:06/21/2024 9:04am Pat. NO: [id number] MD:YEISON TINSLEY MD [facility] RD[facility] :1995Age:29 ----- INDICATION ----- Screening Follow-Up CODING ----- Diagnoses Z3A.21: Weeks of gestation Z36.2: Encounter for other screeningfollow-up Procedures 19614: Ultrasound, uterus, real time withimage documentation, follow up, transabdominal approach per fetus HISTORY ----- OB History 4. Para 3 T3L3 METHOD ----- Transabdominal ultrasound examination ----- Jones . Number of fetuses: 1 DATING ----- GA by prior [id number] w + 6 d ROCIO by prior assessment:10/26/2024 Method of dating:Restore dating from previous exam Assigned:based on stated ROCIO, selected on 06/07/2024 Assigned GA21 w + 6 d Assigned ROCIO:10/26/2024 GENERAL EVALUATION ----- Cardiac activity present. FHR 148 bpm. movements: present.Presentation: cephalic Placenta: Placental site: posterior Umbilical cord: Cord vessels: 3 vessel cord. Insertion site: placentalinsertion: normal Amniotic fluid: Amount of AF: normal amount. MVP 5.5 cm ANATOMY ----- The following structures appear normal: Heart / Thorax Cardiac rhythm. Abdomen Stomach. Bladder. Spine Cervical spine. Thoracic spine. Lumbar spine.Sacral spine. GROWTH OVERVIEW ----- Exam date GA BPD (mm) HC (mm) AC (mm) FL(mm) HL (mm) EFW (g) 06/07/2024 19w 6d 46.4 57% 179.6 68% 155.1 72%34.5 77% 32.1 84% 371 87% COMMENT ----- Patient's name and date of were verified by the entrepreneurship program director prior tothe exam IMPRESSION ----- Jones @ 21w 6d referred for targeted ultrasound forbilateral urinary tract dilation. - The fetus is in cephalic lie. - Amniotic fluid indices are within normal limits. - There is urinary tract dilation noted in both kidneys, 10cm on theright, 5mm on the left. The dilation appears to extend to the calyces on the right, but ureteral dilation is not appreciated. Therenal parenchyma is otherwise unremarkable without dysplastic or cystic features on either side. - The spine is unremarkable today. A care consultation followed the ultrasound. The patient was enrolled in the Care Team. A follow up is scheduled in 2 weeks to follow growth and to reassessthe kidneys. Thank you for allowing us to participate in the care of this patient. us Yeison Tinsley MD US ORDERABLES Final Result * US OB DETAIL SINGLE GEST (06/07/2024 2:10 PM CDT) Anatomical Region Laterality Modality Pelvis Ultrasound 06/07/2024 1:06 PM CDT Narrative 06/09/2024 10:59 AM CDT [facility] COMP ----- Pat. Name: WOODROW THEODORE Study Date: 06/07/2024 1:06pm Pat. NO: [id number] Referring MD: YEISON TINSLEY MD Site: [facility] [place] Wash And Greaser: Eden Contreras RDMS : 1995 Age: 29 ----- INDICATION ----- Anatomy Survey CODING ----- Diagnoses Z3A.19: Weeks of gestation Z36.3: Encounter for screening for malformations Procedures [id number]: Ultrasound, uterus, real time with image documentation, and maternal evaluation plus detailed anatomic examination, transabdominal approach HISTORY ----- OB History 4. Para 3 T3L3 METHOD ----- Transabdominal ultrasound examination ----- Jones . Number of fetuses: 1 DATING ----- Method of dating: based on stated ROCIO GA by prior assessment 19 w + 6 d ROCIO by prior assessment: 10/26/2024 Ultrasound examination on: 06/07/2024 GA by U/S based upon: AC, BPD, EFW, Femur, HC GA by U/S 20 w + 4 d ROCIO by U/S: 10/21/2024 Assigned: based on stated ROCIO, selected on 06/07/2024 Assigned GA 19 w + 6 d Assigned ROCIO: 10/26/2024 BIOMETRY ----- BPD 46.4 mm 20w 0d 57% Hadlock OFD 65.0 mm 22w 0d 98% Itzel HC 179.6 mm 20w 3d 68% Hadlock Cerebellum tr 19.6 mm 19w 4d 43% Larry Nuchal fold 2.8 mm AC 155.1 mm 20w 5d 72% Hadlock Femur 34.5 mm 20w 6d 77% Hadlock Humerus 32.1 mm 20w 5d 84% Itzel HC / AC 1.16 39% Nicolaides Weight Calculation: EFW 371 g 20w 4d 87% Hadlock EFW (lb,oz) 0 lb 13 oz EFW by Hadlock ([id number]) Head / Face / Neck Biometry: CM 6.3 mm 87% Nicolaides Inner IOD 14.8 mm Nasal 5.7 mm bone Extremities / Bony Struc Biometry: FL / BPD 0.74 88% Hadlock FL / HC 0.19 68% Hadlock FL / AC 0.22 67% Hadlock Tibia 30.4 mm 21w 1d 89% Itzel GENERAL EVALUATION ----- Cardiac activity present. FHR 143 bpm. movements: present. Presentation: transverse HMR Placenta: Placental site: posterior Umbilical cord: Cord vessels: 3 vessel cord Insertion site: normaL Amniotic fluid: Amount of AF: normal amount, normal amount. MVP 2.6 cm ANATOMY ----- The following structures appear abnormal: Abdomen Right kidney: 5.6cm. Left kidney: 4.2cm. The following structures appear normal: Head / Neck Cranium. Lateral ventricles. Choroid plexus. Midline falx. Cavum septi pellucidi. Cerebellum. Cisterna magna. Nuchal fold. Face Lips. Profile. Nose. Palate. Orbits. Heart / Thorax 4-chamber view. RVOT view. LVOT view. 3-vessel view. 1-uepdcq-vezfmdg view. Situs. Aortic arch view. Ductal arch view. Superior vena cava. Inferior vena cava. High short axis view. Cardiac rhythm. Diaphragm. Abdomen Abdominal wall. Cord insertion. Stomach. Bladder. Genitals. Extremities / Arms. Right hand. Left hand. Legs. Right foot. Left foot. Skeleton The following structures could not be adequately visualized: Spine Cervical spine. Thoracic spine. Lumbar spine. Sacral spine. DOPPLER ----- Umbilical Artery: PI 30.59 RI 1.70 PS 25.53 cm/s ED 17.91 cm/s TAmax 1.42 cm/s MD 47.70 cm/s S / D 1.43 MATERNAL STRUCTURES ----- Cervix Visualized Approach - Transabdominal: Cervical length 44.6 mm Right Ovary Normal Left Ovary Normal GROWTH OVERVIEW ----- Exam date GA BPD (mm) HC (mm) AC (mm) FL (mm) HL (mm) EFW (g) 06/07/2024 19w 6d 46.4 57% 179.6 68% 155.1 72% 34.5 77% 32.1 84% 371 87% COMMENT ----- Patient's name and date of were verified by the entrepreneurship program director before the exam. Patient's name and date of were verified by the entrepreneurship program director before the exam IMPRESSION ----- Jones @ 19w 6d referred for anatomical survey. - The biometry is consistent with dates. - Amniotic fluid indices are within normal limits. - The placenta is posterior with a central cord insertion and no evidence of previa or low-lying placenta. - Visualized anatomy is notable for bilateral urinary tract dilation, A2- 3. The remainder of the anatomy is unremarkable, except for the spine that is suboptimal due to persistent poor position. The findings were discussed with the patient over the phone. Recommend NIPT; patient considering. A targeted ultrasound and care consultation are scheduled in 1-2 weeks. The patient will be enrolled in the Care Team at that time. Thank you for allowing us to participate in the care of your patient. ADDENDUM ----- RETRIGGER Procedure Note Susan Romero MD - 06/09/2024 [facility] COMP ----- Pat. Name:Bandar THEODORE Date:06/07/2024 1:06pm Pat. NO: [id number] MD:YEISON TINSLEY MD [facility]Eden Contre[facility] RDMS :1995Age:29 ----- INDICATION ----- Anatomy Survey CODING ----- Diagnoses Z3A.19: Weeks of gestation Z36.3: Encounter for screening formalformations Procedures [id number]: Ultrasound, uterus, real time withimage documentation, and maternal evaluation plus detailed anatomic examination,transabdominal approach HISTORY ----- OB History 4. Para 3 T3L3 METHOD ----- Transabdominal ultrasound examination ----- Jones . Number of fetuses: 1 DATING ----- Method of dating:based on stated ROCIO GA by prior [id number] w + 6 d ROCIO by prior assessment:10/26/2024 Ultrasound examination on:06/07/2024 GA by U/S based upon:AC, BPD, EFW, Femur, HC GA by U/S20 w + 4 d ROCIO by U/S:10/21/2024 Assigned:based on stated ROCIO, selected on 06/07/2024 Assigned GA19 w + 6 d Assigned ROCIO:10/26/2024 BIOMETRY ----- BPD 46.4 mm 20w 0d57% Hadlock OFD 65.0 mm 22w 0d98% Itzel HC 179.6 mm 20w 3d68% Hadlock Cerebellum tr 19.6 mm 19w 4d43% Larry Nuchal fold 2.8 mm AC 155.1 mm 20w 5d72% Hadlock Femur 34.5 mm 20w 6d77% Hadlock Humerus 32.1 mm 20w 5d84% Itzel HC / AC 1.16 39%Nicolaides Weight Calculation: EFW 371 g 20w 4d 87%Hadlock EFW (lb,oz) 0 lb 13 oz EFW by Hadlock ([id number]) Head / Face / Neck Biometry: CM 6.3 mm 87%Nicolaides Inner IOD 14.8 mm Nasal 5.7 mm bone Extremities / Bony Struc Biometry: FL / BPD 0.74 88%Hadlock FL / HC 0.19 68%Hadlock FL / AC 0.22 67%Hadlock Tibia 30.4 mm 21w 1d 89%Itzel GENERAL EVALUATION ----- Cardiac activity present. FHR 143 bpm. movements: present.Presentation: transverse HMR Placenta: Placental site: posterior Umbilical cord: Cord vessels: 3 vessel cord Insertion site: normaL Amniotic fluid: Amount of AF: normal amount, normal amount. MVP 2.6 cm ANATOMY ----- The following structures appear abnormal: Abdomen Right kidney: 5.6cm. Left kidney: 4.2cm. The following structures appear normal: Head / Neck Cranium. Lateral ventricles. Choroid plexus.Midline falx. Cavum septi pellucidi. Cerebellum. Cisterna magna. Nuchal fold. Face Lips. Profile. Nose. Palate. Orbits. Heart / Thorax 4-chamber view. RVOT view. LVOT view. 3-vesselview. 3-yfexup-nerbqoc view. Situs. Aortic arch view. Ductal arch view. Superior vena cava. Inferiorvena cava. High short axis view. Cardiac rhythm. Diaphragm. Abdomen Abdominal wall. Cord insertion. Stomach. Bladder.Genitals. Extremities / Arms. Right hand. Left hand. Legs. Right foot.Left foot. Skeleton The following structures could not be adequately visualized: Spine Cervical spine. Thoracic spine. Lumbar spine.Sacral spine. DOPPLER ----- Umbilical Artery: PI 30.59 RI 1.70 PS 25.53 cm/s ED 17.91 cm/s TAmax 1.42 cm/s MD 47.70 cm/s S / D 1.43 MATERNAL STRUCTURES ----- Cervix Visualized Approach - Transabdominal: Cervical length 44.6mm Right Ovary Normal Left Ovary Normal GROWTH OVERVIEW ----- Exam date GA BPD (mm) HC (mm) AC (mm) FL(mm) HL (mm) EFW (g) 06/07/2024 19w 6d 46.4 57% 179.6 68% 155.1 72%34.5 77% 32.1 84% 371 87% COMMENT ----- Patient's name and date of were verified by the entrepreneurship program director beforethe exam. Patient's name and date of were verified by the entrepreneurship program director before the exam IMPRESSION ----- Jones @ 19w 6d referred for anatomical survey. - The biometry is consistent with dates. - Amniotic fluid indices are within normal limits. - The placenta is posterior with a central cord insertion and no evidenceof previa or low-lying placenta. - Visualized anatomy is notable for bilateral urinary tractdilation, A2-3. The remainder of the anatomy is unremarkable, except for the spine that is suboptimal due to persistent poor fetalposition. The findings were discussed with the patient over the phone. Recommend NIPT; patient considering. A targeted ultrasound and care consultation are scheduled in 1-2weeks. The patient will be enrolled in the Care Team at that time. Thank you for allowing us to participate in the care of your patient. ADDENDUM ----- RETRIGGER us Yeison Tinsley MD ORDERABLES Edited Result - Final from Last 3 Months Insurance MEDICAID
--- OUTSIDE RECORDS SUMMARY | 2024-07-04 14:33 | XMS_ITS | Clinical Summary ---
Author Organization [facility] Address [address] 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,non-owned Affiliates and Associated Physician Practices is amultiple site organization consisting of ambulatory clinics and hospital sitesin [place], [place] and [place]. This disclosure is being madepursuant to the Care Everywhere program and may not contain all information available regarding this patient. Last updated 17.[facility] Allergies Active Allergy Reactions Criticality Noted Date Comments Amoxicillin Urticaria 12/15/2011 Penicillins Urticaria 12/15/2011 Medications * Be aware that medications may not be up to date on this document. Alwaysverify current medications with the patient. No known [...] the opening of randomization packet in the resuscitation room (by the telephone). 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 Gender Identity Not on file Sexual Orientation Not on file Last Filed Vital Signs Vital Sign Reading Time Taken Comments Blood Pressure 116/74 11/27/2019 11:05 AM CDT Pulse 100 11/27/2019 11:05 AM CDT Temperature 36.7 C (98 F) 11/27/2019 11:05 AM CDT Respiratory Rate 19 11/27/2019 11:05 AM CDT Oxygen Saturation 98% 11/27/2019 11:05 AM CDT Inhaled Oxygen Concentration - - Weight 93 kg (205 lb) 11/27/2019 11:05 AM CDT Height 160 cm (5' 3 ) 11/27/2019 11:05 AM CDT Body Mass Index 36.31 11/27/2019 11:05 AM CDT Plan of Treatment Health Maintenance Due Date Last Done Comments HIV SCREENING 01/23/2008 HEPATITIS C SCREENING 01/18/2011 DTAP/TDAP/TD VACCINES (1 - Tdap) 01/23/2012 HEPATITIS B VACCINE (1 of 3 - 19+ 3-dose series) 01/23/2012 COVID-19 VACCINE (2023-2 5 season) 2023 DEPRESSION SCREENING 02/25/2024 INFLUENZA VACCINE (Season Ended) 2024 ZOSTER VACCINE (1 of 2) 2043 HIB VACCINE Aged Out No longer eligi ble based on patient's age to complete this topic HPV VACCINE Aged Out No longer eligi ble based on patient's age to complete this topic MENINGOCOCCAL (Group B) VACC INE SHARED DECISION-MAKING Aged Out No longer eligibl e based on patient's age to complete this topic MENINGOCOCCAL GROUPS A/C/Y/W VACCINE Aged Out No longer eligible b ased on patient's age to complete this topic PNEUMOCOCCAL VACCINE Aged Out No long er eligible based on patient's age to complete this topic Insurance [facility] Advance Directives * FULL RESUSCITATION (Latest Code Status on File) Date Activated Date Inactivated Comments 12/15/2011 12:54 PM 12/18/2011 2:56 PM
[2024-07-04 15:01] LABS: Basophils Percent Auto 0.2 % (0.2-1.2); Eosinophils Percent Auto 0.4 % (0-4.4); Hematocrit 28.8 % (37.0-47.0); Hemoglobin 8.7 g/dL (12.0-15.0); Immature Granulocyte Absolute 0.01 K/mm3 (0.00-0.031); Immature Granulocyte Percent A 0.2 % (0-0.5); Lymphocytes Absolute Auto 0.88 K/mm3 (0.9-3.2); Lymphocytes Percent Auto 18.9 % (18.3-44.2); Mean Corpuscular HGB Conc 30.2 g/dl (32-36); Mean Corpuscular Hemoglobin 23.8 pg (26-34); Mean Corpuscular Volume 78.9 fl (80-100); Mean Platelet Volume 9.7 fl (7.4-10.4); Monocytes Absolute Auto 0.6 K/mm3 (0.1-0.6); Neutrophils Absolute Auto 3.2 K/mm3 (1.3-6.7); Neutrophils Percent Auto 68.3 % (45.5-73.1); Platelet Count Result 192 k/mm3 (150-375); Red Blood Count 3.65 M/mm3 (4.2-5.4); Red Cell Distribution Width 15.9 % (11.5-14.5); White Blood Count 4.7 K/mm3 (4.5-10.0)
[2024-07-04 15:10] LABS: Alanine Aminotransferase 14 U/L (6-35); Albumin Level 3.6 g/dL (3.5-5.1); Alkaline Phosphatase 64 U/L (38-126); Anion Gap 9 mmol/L (4-12); Aspartate Amino Transferase 23 U/L (14-36); Bilirubin,Total 0.4 mg/dL (0.2-1.3); Blood Urea Nitrogen 3 mg/dL (7-17); Calcium 8.5 mg/dL (8.4-10.2); Carbon Dioxide 21 mmol/L (22-30); Chloride 104 mmol/L (98-107); Estimated Glomerular Filt Rate > 60; Glucose 97 mg/dL (65-110); Potassium 3.2 mmol/L (3.4-5.0); Sodium 134 mmol/L (137-145); Uric Acid 3.6 mg/dL (2.5-7.5)
[2024-07-04 15:12] LABS: Add Urine Microscopic? YES; Appearance Urine Clear (Clear); Bacteria Urine Rare /hpf; Bilirubin Urine Negative (Negative); Blood Urine Negative (Negative); Color Urine Yellow (Yellow); Glucose Urine UA Negative (Negative); Ketones Urine Negative (Negative); Leukocyte Esterase Ur 1+ LEU/UL (Negative); Nitrate Urine Negative (Negative); Non Pathogenic Casts 0-2; Protein Urine Negative (Negative); RBC Urine 0-2 /hpf (0-2); Specific Grav Ur 1.015 (1.001-1.035); Squamous Epithelial Cell Urine Moderate /hpf (Few)
[2024-07-04 15:13] LABS: Creatinine Urine 127.8 mg/dL
[2024-07-04 15:15] LABS: Total Protein Urine Random < 5 mg/dL; Ur Ttl Prot Creatinine Ratio < 0.04 mg/mg (0-0.20)
[2024-07-04] MEDS: LACTATED RINGERS 1,000 ML 999 ML IV CONT (15:44)
== END 2024-07-04 17:03 | disposition home or self-care (01) ==
LOC: ANHOBOP 14:31 → ANHLDR 14:33
PROVIDERS: Visit Provider Obstetrics & Gynecology
DX: O13.9 Gestational [pregnancy-induced] hypertension without significant proteinuria, unspecified trimester (principal); Z3A.00 Weeks of gestation of pregnancy not specified
CPT/HCPCS: 36415; 80053; 81001; 82570; 84156; 84550; 85025; 99199; J7120

== ENCOUNTER 2024-07-14 14:50 | Emergency (ER) | payer MEDICAID, SELFPAY ==
[2024-07-14] VITALS (7 sets, daily range): BP systolic 93–110; BP diastolic 58–68; PULSE 84–104; RESP 14–22; TEMP 36.7–37.1; O2SAT 99–100
--- NOTE | ~2024-07-14 | US_ITS ---
EXAMINATION: US venous doppler [facility] DATE: 07/14/2024 20:19 INDICATION: Positive d-dimer. No pain swelling or erythema. TECHNIQUE: Grayscale ultrasound images without and with compression and Doppler ultrasound images of the bilateral lower extremity veins were obtained. COMPARISON: None. FINDINGS: The visualized portions of right common femoral vein, profunda (deep) femoral vein, femoral vein, pop liteal vein, peroneal veins, posterior tibial veins, and greater saphenous vein outflow are patent. The visualized portions of left common femoral vein, profunda femoral vein, femoral vein, popliteal v ein, peroneal veins, posterior tibial veins, and greater saphenous vein outflow are patent. IMPRESSION: 1. No deep venous thrombosis. Reviewed, dictated and finalized at location A.
--- OUTSIDE RECORDS SUMMARY | 2024-07-14 14:56 | XMS_ITS | Clinical Summary ---
Author Organization [facility] Address [address] [place] [address] Care Team Providers Care Dolly Operator Name Role Phone Unavailable Primary Care Provider Unavailabl e Source Comments [facility],non-owned Affiliates and Associated Physician Practices is amultiple site organization consisting of ambulatory clinics and hospital sitesin [place], [place], [place] and [place]. This disclosure is being madepursuant to the Care Everywhere program and may not contain all information available regarding this patient. 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
--- OUTSIDE RECORDS SUMMARY | 2024-07-14 14:56 | XMS_ITS | Clinical Summary ---
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 Recreational Vehicle Name Role Phone Unavailable Primary Care Provider Unavailabl e Allergies Active Allergy Reactions Criticality Noted Date Comments Amoxicillin Rash Low 02/06/2012 Medications NIFEDIPINE (PROCARDIA ORAL) Every six hours for contractions Active Active Problems Comments Yes No known active problems Encounters Date Type Department Care Team Description 07/06/2024 10:56 AM CDT - 07/06/2024 11:59 PM CDT Hospital Encounter [facility] Maternal and Ground Floor [address] [facility] [address] [place] [address] Susan Romero MD Discharge Disposition: Home or Self Care 06/21/2024 11:00 AM CDT Initial [facility] Maternal and Medicine [address] [place] [address] Susan Romero MD Abnormal ultrasound (Primary Dx); 21 weeks gestation of 06/21/2024 9:46 AM CDT - 06/21/2024 11:59 PM CDT Hospital Encounter [facility] Maternal and Ground Floor [address] [facility] [address] [place] [address] Yeison Tinsley MD Discharge Disposition: Home or Self Care 06/09/2024 Orders Only [facility] Maternal and Ground Floor [address] [facility] [address] [place] [address] Yeison Tinsley MD Abnormal ultrasonic finding on screening of mother (Primary Dx) 06/08/2024 External Device Data STL ABSTRACTION Provider, Abstract 06/07/2024 12:52 PM CDT - 06/07/2024 11:59 PM CDT [facility] [address] [place] [address] Yeison Tinsley MD Discharge Disposition: Home or [...] on file 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 Gender Identity Not on file Sexual Orientation [...] Care Team (Late st Contact Info) Description 08/31/2024 10:00 AM CDT Appointment [facility] M[facility] Ground [facility] [address] [place] [address] Ray Mock MD [id number] [place] [address] Health Maintenance Due Date Last [...] US OB FOLLOW UP PER FETUS Routine 07/06/2024 11:29 AM CDT Encounter for repeat ultrasound of pyelectasis in peres , antepartum US OB FOLLOW UP PER FETUS Routine 06/21/2024 10:24 AM CDT Abnormal ultrasound US OB DETAIL SINGLE GEST Routine 06/07/2024 2:10 PM CDT screening for malformation using ultrasonics from Last 3 Months Results * US OB FOLLOW UP PER FETUS (07/06/2024 11:29 AM CDT) Only the most recent of2 resultswithin the time period is included. Anatomical Region Laterality Modality Pelvis Ultrasound 07/06/2024 10:0 7 AM CDT Narrative 07/06/2024 11:35 AM CDT STL FOLLOW UP ----- Pat. Name: JOHAN THEODORE Study Date: 07/06/2024 10:07am Pat. NO: [id number] Referring MD: YEISON TINSLEY MD Site: [facility] [employer] Officer: Rebecca Gary RDMS : 1995 Age: 29 ----- INDICATION ----- Screening Follow-Up Pyelectasis (Renal Pyelectasis) CODING ----- Diagnoses Z3A.24: Weeks of gestation Z36.2: Encounter for other screening follow-up O28.3: Abnormal ultrasonic finding on screening of mother Procedures [id number]: Ultrasound, uterus, real time with image documentation, follow up, transabdominal approach per fetus HISTORY ----- OB History 4. Para 3 T3L3 MATERNAL ASSESSMENT ----- Physical Exam Weight 87 kg. BMI 34.93 kg/m METHOD ----- Transabdominal ultrasound examination ----- Peres . Number of fetuses: 1 DATING ----- GA by prior assessment 24 w + 0 d ROCIO by prior assessment: 10/26/2024 Ultrasound examination on: 07/06/2024 GA by U/S based upon: AC, BPD, EFW, Femur, HC GA by U/S 24 w + 2 d ROCIO by U/S: 10/24/2024 Method of dating: Restore dating from previous exam Assigned: based on stated ROCIO, selected on 06/07/2024 Assigned GA 24 w + 0 d Assigned ROCIO: 10/26/2024 BIOMETRY ----- BPD 56.0 mm 23w 1d 15% Hadlock OFD 82.7 mm 26w 6d >99% Itzel HC 224.1 mm 24w 3d 49% Hadlock AC 198.0 mm 24w 3d 56% Hadlock Femur 45.2 mm 25w 0d 68% Hadlock HC / AC 1.13 45% Nicolaides Weight Calculation: EFW 710 g 24w 2d 67% Hadlock EFW (lb,oz) 1 lb 9 oz EFW by Hadlock ([id number]) Head / Face / Neck Biometry: Shipping Support Clerk 4.9 mm Extremities / Bony Struc Biometry: FL / BPD 0.81 FL / HC 0.20 FL / AC 0.23 GENERAL EVALUATION ----- Cardiac activity present. FHR 141 bpm. movements: present. Presentation: cephalic Placenta: Placental site: posterior, left Umbilical cord: Cord vessels: 3 vessel cord. Insertion site: placental insertion: normal Amniotic fluid: Amount of AF: normal amount. MVP 4.6 cm ANATOMY ----- The following structures appear abnormal: Abdomen Kidneys: Left UTD: 5.2 mm Right UTD: 8.6 mm. The following structures appear normal: Head / Neck Cranium. Lateral ventricles. Choroid plexus. Midline falx. Cavum septi pellucidi. Cerebellum. Cisterna magna. Heart / Thorax Diaphragm. Abdomen Stomach. Bladder. GROWTH OVERVIEW ----- Exam date GA BPD (mm) HC (mm) AC (mm) FL (mm) HL (mm) EFW (g) 06/07/2024 19w 6d 46.4 57% 179.6 68% 155.1 72% 34.5 77% 32.1 84% 371 87% 07/06/2024 24w 0d 56.0 15% 224.1 49% 198.0 56% 45.2 68% 710 67% COMMENT ----- Patient's name and date of were verified by the abalone fisherman prior to the exam IMPRESSION ----- -Single living fetus with a gestational age of 24w 0d based on the reported dates. -cephalic presentation. -The EFW is 710 g which is at the 67%. The abdominal circumference is at the 56%. -Bilateral urinary tract dilation is noted. The left renal pelvis measures 5.2 mm and the right measures 8.6 mm. Dilation of the proximal calyces is noted on the right. Ureters do not appear to be dilated. Normal appearing bladder. -The amniotic fluid is normal for gestational age. (MVP of 4.6 cm) -The placenta is posterior, left The ultrasound findings and limitations were discussed with the patient and all questions answered. Renal findings appear overall stable compared to last sonogram. Continue to follow and if UTD persists at next sonogram, FCT will arrange a consult with pediatric urologist. Recommend: -Follow up at 32 weeks gestation Thank you for allowing us to participate in the care of this patient. Procedure Note Ray Mock MD - 07/06/2024 ST FOLLOW UP ----- Pat. Name:Bandar THEODORE Date:07/06/2024 10:07am Pat. NO: [id number] MD:YEISON TNISLEY MD [facility] Gary RDMS :1995Age:29 ----- INDICATION ----- Screening Follow-Up Pyelectasis (Renal Pyelectasis) CODING ----- Diagnoses Z3A.24: Weeks of gestation Z36.2: Encounter for other screeningfollow-up O28.3: Abnormal ultrasonic finding on antenatalscreening of mother Procedures [id number]: Ultrasound, uterus, real time withimage documentation, follow up, transabdominal approach per fetus HISTORY ----- OB History 4. Para 3 T3L3 MATERNAL ASSESSMENT ----- Physical Exam Weight 87 kg. BMI 34.93 kg/m METHOD ----- Transabdominal ultrasound examination ----- Peres . Number of fetuses: 1 DATING ----- GA by prior w + 0 d ROCIO by prior assessment:10/26/2024 Ultrasound examination on:07/06/2024 GA by U/S based upon:AC, BPD, EFW, Femur, HC GA by U/S24 w + 2 d ROCIO by U/S:10/24/2024 Method of dating:Restore dating from previous exam Assigned:based on stated ROCIO, selected on 06/07/2024 Assigned GA24 w + 0 d Assigned ROCIO:10/26/2024 BIOMETRY ----- BPD 56.0 mm 23w 1d 15%Hadlock OFD 82.7 mm 26w 6d >99%Itezl HC 224.1 mm 24w 3d 49%Hadlock AC 198.0 mm 24w 3d 56%Hadlock Femur 45.2 mm 25w 0d 68%Hadlock HC / AC 1.13 45%Nicolaides Weight Calculation: EFW 710 g 24w 2d 67%Hadlock EFW (lb,oz) 1 lb 9 oz EFW by Hadlock ([id number]) Head / Face / Neck Biometry: Shipping Support Clerk 4.9mm Extremities / Bony Struc Biometry: FL / BPD 0.81 FL / HC 0.20 FL / AC 0.23 GENERAL EVALUATION ----- Cardiac activity present. FHR 141 bpm. movements: present.Presentation: cephalic Placenta: Placental site: posterior, left Umbilical cord: Cord vessels: 3 vessel cord. Insertion site: placentalinsertion: normal Amniotic fluid: Amount of AF: normal amount. MVP 4.6 cm ANATOMY ----- The following structures appear abnormal: Abdomen Kidneys: Left UTD: 5.2 mm Right UTD: 8.6 mm. The following structures appear normal: Head / Neck Cranium. Lateral ventricles. Choroid plexus.Midline falx. Cavum septi pellucidi. Cerebellum. Cisterna magna. Heart / Thorax Diaphragm. Abdomen Stomach. Bladder. GROWTH OVERVIEW ----- Exam date GA BPD (mm) HC (mm) AC (mm) FL(mm) HL (mm) EFW (g) 06/07/2024 19w 6d 46.4 57% 179.6 68% 155.1 72%34.5 77% 32.1 84% 371 87% 07/06/2024 24w 0d 56.0 15% 224.1 49% 198.0 56%45.2 68% 710 67% COMMENT ----- Patient's name and date of were verified by the abalone fisherman prior tothe exam IMPRESSION ----- -Single living fetus with a gestational age of 24w 0d based on thereported dates. -cephalic presentation. -The EFW is 710 g which is at the 67%. The abdominal circumference is atthe 56%. -Bilateral urinary tract dilation is noted. The left renal pelvis measures5.2 mm and the right measures 8.6 mm. Dilation of the proximal calyces is noted on the right. Ureters do not appear to bedilated. Normal appearing bladder. -The amniotic fluid is normal for gestational age. (MVP of 4.6 cm) -The placenta is posterior, left The ultrasound findings and limitations were discussed with the patientand all questions answered. Renal findings appear overall stable compared to last sonogram. Continueto follow and if UTD persists at next sonogram, FCT will arrange a consult with pediatric urologist. Recommend: -Follow up at 32 weeks gestation Thank you for allowing us to participate in the care of this patient. us Susan Romero MD US ORDERABLES Final Result * US OB DETAIL SINGLE GEST (06/07/2024 2:10 PM CDT) Anatomical Region Laterality Modality Pelvis Ultrasound 06/07/2024 1:06 PM CDT Narrative 06/09/2024 10:59 AM CDT STL COMP ----- Pat. Name: JOHAN THEODORE Study Date: 06/07/2024 1:06pm Pat. NO: [id number] Referring MD: YEISON TINSLEY MD Site: Lane [employer] Alt[employer] Officer: Eden Contreras RDMS : 1995 Age: 29 ----- INDICATION ----- Anatomy Survey CODING ----- Diagnoses Z3A.19: Weeks of gestation Z36.3: Encounter for screening for malformations Procedures [id number]: Ultrasound, uterus, real time with image documentation, and maternal evaluation plus detailed anatomic examination, transabdominal approach HISTORY ----- OB History 4. Para 3 T3L3 METHOD ----- Transabdominal ultrasound examination ----- Peres . Number of fetuses: 1 DATING ----- [...] 0 lb 13 oz EFW by Hadlock ([id number]) Head / Face / Neck Biometry: CM [...] view. RVOT view. LVOT view. 3-vessel view. 1-utytgk-favpazu view. Situs. Aortic arch view. Ductal arch [...] and date of were verified by the abalone fisherman before the exam. Patient's name and date of were verified by the abalone fisherman before the exam IMPRESSION ----- Peres @ 19w 6d referred for anatomical survey. [...] Pat. Name:Bandar THEODORE Date:06/07/2024 1:06pm Pat. NO: [id number] MD:YEISON TINSLEY MD [facility]Eden Contreras RDMS :1995Age:29 ----- INDICATION ----- Anatomy Survey CODING ----- Diagnoses Z3A.19: Weeks of gestation Z36.3: Encounter for screening formalformations Procedures [id number]: Ultrasound, uterus, real time withimage documentation, and maternal evaluation plus detailed anatomic examination,transabdominal approach HISTORY ----- OB History 4. Para 3 T3L3 METHOD ----- Transabdominal ultrasound examination ----- Peres . Number of fetuses: 1 DATING ----- Method of dating:based on stated ROCIO GA by prior [id number] w + 6 d ROCIO by prior [...] 0 lb 13 oz EFW by Hadlock ([id number]) Head / Face / Neck Biometry: CM [...] 4-chamber view. RVOT view. LVOT view. 3-vesselview. 8-oxajaa-nmgibds view. Situs. Aortic arch view. Ductal arch [...] and date of were verified by the abalone fisherman beforethe exam. Patient's name and date of were verified by the abalone fisherman before the exam IMPRESSION ----- Peres @ 19w 6d referred for anatomical survey. [...] Final from Last 3 Months Insurance [place] [address]
--- NOTE | 2024-07-14 16:56 | ECG_ITS ---
Test Date: 2024-07-14 16:59:41 Measurements Intervals Jelm Rate: 86 P: 46 CA: 150 QRS: 10 QRSD: 77 T: 7 QT: 371 QTc: 445 Interpretive Statements SINUS RHYTHM No previous ECG available for comparison Electronically Signed On 07-15-2024 13:52:59 CDT by Willie Carter M.D.
--- NOTE | 2024-07-14 16:56 | ED_ITS ---
HPI - SOB/Dyspnea General Chief Complaint: Shortness of Breath/Dyspnea <UMER Coleman Last Filed: 07/14/24 17:07> Stated Complaint: 25WKS PREG,SOB,CHEST PAIN <UMER Coleman Last Filed: 07/14/24 17:07> Time Seen by Provider: 07/14/24 16:56 <UMER Coleman Last Filed: 07/14/24 17:07> Focused HPI: Patient is a 29 y/o female who presents to the ED with c/o CP. Patient reports she was at home around 9am this morning when she began having midsternal chest pain. Thought it may have been gas pains, attempted to drink sparkling water, but vomited. States she laid down and pain resolved after approx 2 hours. Patient had an appointment with her OBGYN today, Dr. Smith, and was referred to the ED for further evaluation. She denies current pain. Patient reports she did feel mildly short of breath with the pain today. Reports she has had intermittent racing heart palpitations, lightheadedness over the past 2 weeks. Also states her BP has been borderline low lately. Patient is and currently 25 weeks gestation. She has had intermittent lower abdominal cramping and lower back pain. States baby was checked today and was normal. Denies hx of blood clots, recent travel. GENERAL: Well-appearing, well-nourished, and in no acute distress. HEAD: Normocephalic, atraumatic. CHEST: Clear to auscultation. ?No respiratory distress. HEART: Regular rate and rhythm.? ABD: Uterus gravid, nontender NEURO: ?Alert and oriented x3. Patient screened in triage and initial orders placed.? ?Additional care and disposition to be based upon?diagnostic testing and treatment. <UMER Coleman Last Filed: 07/14/24 17:07> Source: patient <UMER Coleman Last Filed: 07/14/24 17:07> Mode of arrival: ambulatory <UMER Coleman Last Filed: 07/14/24 17:07> Limitations: no limitations <UMER Coleman Last Filed: 07/14/24 17:07> Related Data Home Medications: Home Medications ?Medication ?Instructions ?Recorded ?Confirmed ?Last Taken ?Type docosahexaenoic acid 200 mg mg PO 04/01/24 07/14/24 Unknown History capsule ( DHA) <UMER Coleman Last Filed: 07/14/24 17:07> Allergies/Adverse Reactions: Allergies Allergy/AdvReac Type Severity Reaction Status Date / Time Penicillins Allergy Intermediate rash Verified 07/14/24 14:51 amoxicillin Allergy Unknown RASH Verified 07/14/24 14:51 <UMER Coleman Last Filed: 07/14/24 17:07> Review of Systems 2 Review of Systems: All systems reviewed & are unremarkable except as noted in HPI and below <UMER Mills Last Filed: 07/14/24 21:33> [facility] Past Medical History Medical History: Medical History Encounter for IUD insertion BMI 34.0-34.9,adult Vaginal odor Constipation <UMER Coleman Last Filed: 07/14/24 17:07> Surgical History Surgical History: Surgical History H/O foot surgery <UMER Coleman Last Filed: 07/14/24 17:07> Family History Family History: Family History Son Asthma Grandparent History of cancer Cerebrovascular accident Other Diabetes mellitus Aunt Father No problems noted. Mother Neuropathy Kidney disease Sibling No problems noted. <UMER Coleman Last Filed: 07/14/24 17:07> Social History Social History: Social History Smoking status: Never smoker Second hand tobacco smoke exposure: Yes Alcohol intake: never Substance use: never Substance use type: does not use Last use: Stopped Lack of Transportation: No Lack of Food: Never True Current Housing: I Have Housing Concerned About Future Housing: No Difficulty Paying Gas/Electric Bills: No Difficulty Paying for Meds: No Currently Unemployed: No Education: Bachelor's Degree Difficulty w/ Childcare or Family Care: No Living arrangements: with family Occupation/Education: occupation 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 HEAD: Normocephalic, atraumatic. EYES: EOMI. CHEST: Clear to auscultation. No respiratory distress. No wheezes rales or rhonchi HEART: Regular rate and rhythm. No murmur heard. Normal peripheral pulses. ABDOMEN: Gravid EXTREMITIES: Normal range of motion. No edema. SKIN: Warm, dry, no rash. NEURO: No focal deficits. Alert and oriented x3. PSYCH: Normal mood and affect <Jess Jordan PA-C - Last Filed: 07/14/24 21:33> Course Course Emergency Course: I had a long/in depth discussion with the patient about how I recommended proceeding with CTA to rule out PE as this is a life threatening emergency. I even spoke with OB construction site manager who agreed with my plan. Patient is still refusing imaging <Jess Jordan PA-C - Last Filed: 07/14/24 21:33> Vital Signs Vital signs: Vital Signs Temperature 98.0 F 07/14/24 15:22 Pulse Rate 91 07/14/24 15:22 Respiratory Rate 14 07/14/24 15:22 Blood Pressure 93/58 L 07/14/24 15:22 Pulse Oximetry 100 07/14/24 15:22 Oxygen Delivery Room Air 07/14/24 15:22 Temperature 98.0 F 07/14/24 15:22 Pulse Rate 104 H 07/14/24 19:38 Respiratory Rate 22 H 07/14/24 19:38 Blood Pressure 98/67 L 07/14/24 19:38 Pulse Oximetry 100 07/14/24 19:38 Oxygen Delivery Room Air 07/14/24 18:19 <Sissy Ortiz PA-C - Last Filed: 07/14/24 17:07> Vital Signs Temperature 98.0 F 07/14/24 15:22 Pulse Rate 91 07/14/24 15:22 Respiratory Rate 14 07/14/24 15:22 Blood Pressure 93/58 L 07/14/24 15:22 Pulse Oximetry 100 07/14/24 15:22 Oxygen Delivery Room Air 07/14/24 15:22 Temperature 98.0 F 07/14/24 15:22 Pulse Rate 104 H 07/14/24 19:38 Respiratory Rate 22 H 07/14/24 19:38 Blood Pressure 98/67 L 07/14/24 19:38 Pulse Oximetry 100 07/14/24 19:38 Oxygen Delivery Room Air 07/14/24 18:19 <UMER Mills Last Filed: 07/14/24 21:33> MDM - SOB/Dyspnea MDM Narrative Medical decision making narrative: MSE by ESTEFANIA in triage. <UMER Coleman Last Filed: 07/14/24 17:07> MSE by ESTEFANIA in triage. Patient presents the emergency department for chest pain, shortness of breath, palpitations, lightheadedness. Heart rate is in the 90s to 100s. Blood pressure is soft, but stable. Oxygen saturation is 100% on room air. No lower extremity edema. Cbc shows microcytic anemia hemoglobin of 8.9. Patient is being followed by her OB for this. Hemoglobin appears stable. Metabolic panel without concerning findings. EKG without concerning changes and baseline and 3 hour troponin are negative. D dimer was elevated. Ultrasound venous Doppler of the lower extremities without evidence of DVT. I had a long/in depth discussion with the patient about how I recommended proceeding with CTA to rule out PE as this is a life threatening emergency. I even spoke with OB construction site manager who agreed with my plan. Patient is still refusing imaging. She was encouraged to return at any time for further evaluation and management and have close follow up with her OB <UMER Mills Last Filed: 07/14/24 21:33> Differential Diagnosis Differential diagnosis: Likely community acquired pneumonia, pulmonary embolism and other (anemia, GERD) <Jess Jordan PA-C - Last Filed: 07/14/24 21:33> Lab Data Attestation: I reviewed the patient's lab results. <Jess Jordan PA-C - Last Filed: 07/14/24 21:33> Result diagrams: 07/14/24 17:06 07/14/24 17:06 <Sissy Ortiz PA-C - Last Filed: 07/14/24 17:07> Labs: Lab Results 07/14/24 07/14/24 Range/Units 17:06 20:08 WBC 7.1 (4.5-10.0) K/mm3 RBC 3.80 L (4.2-5.4) M/mm3 Hgb 8.9 L (12.0-15.0) g/dL Hct 30.0 L (37.0-47.0) % MCV 78.9 L (80-100) fl MCH 23.4 L (26-34) pg MCHC 29.7 L (32-36) g/dl RDW 16.6 H (11.5-14.5) % Plt Count 220 (150-375) k/mm3 MPV 10.0 (7.4-10.4) fl Immature Gran % (Auto) 0.3 (0-0.5) % Neut % (Auto) 76.1 H (45.5-73.1) % Lymph % (Auto) 15.3 L (18.3-44.2) % [place] % (Auto) 7.9 (2.6-8.5) % Eos % (Auto) 0.3 (0-4.4) % Baso % (Auto) 0.1 L (0.2-1.2) % Lymph # (Auto) 1.09 (0.9-3.2) K/mm3 [place] # (Auto) 0.6 (0.1-0.6) K/mm3 Eos # (Auto) 0.0 (0-0.3) K/mm3 Baso # (Auto) 0.0 (0.0-0.1) K/mm3 Abs Immat Gran (auto) 0.02 (0.00-0.031) K/mm3 Absolute Neuts (auto) 5.4 (1.3-6.7) K/mm3 Absolute Nucleated RBC 0.000 (0.0-0.012) K/mm3 Band Neutrophils % Not Reportable Nucleated RBC % 0.0 (0.0-0.2) % Platelet Estimate Adequate (Adequate) Large Platelets Present Polychromasia 1+ Anisocytosis 1+ Schistocytes Not Reportable PT 14.3 (11.1-14.7) Seconds INR 1.1 APTT 26.1 (22.3-36.8) Seconds D-Dimer 0.64 H (<0.48) ug/mL Sodium 134 L (137-145) mmol/L Potassium 3.5 (3.4-5.0) mmol/L Chloride 105 (98-107) mmol/L Carbon Dioxide 21 L (22-30) mmol/L Anion Gap 8 (4-12) mmol/L BUN 6 L (7-17) mg/dL Creatinine 0.38 L (0.7-1.0) mg/dL Estim Creat Clear Calc 179 ml/min Estimated GFR > 60 (59 - ) Glucose 91 (65-110) mg/dL Calcium 8.6 (8.4-10.2) mg/dL Magnesium 1.8 (1.6-2.3) mg/dL Total Bilirubin 0.5 (0.2-1.3) mg/dL AST 25 (14-36) U/L ALT 13 (6-35) U/L Alkaline Phosphatase 55 (38-126) U/L Troponin I < 0.012 < 0.012 (0.000-0.034) ng/mL NT-Pro-B Natriuret Pep 73 (19.9-100) pg/mL Total Protein 7.0 (6.3-8.2) g/dL Albumin 3.6 (3.5-5.1) g/dL Lipase 69 (23-300) U/L <Sissy Ortiz PA-C - Last Filed: 07/14/24 17:07> Lab Results 07/14/24 07/14/24 Range/Units 17:06 20:08 WBC 7.1 (4.5-10.0) K/mm3 RBC 3.80 L (4.2-5.4) M/mm3 Hgb 8.9 L (12.0-15.0) g/dL Hct 30.0 L (37.0-47.0) % MCV 78.9 L (80-100) fl MCH 23.4 L (26-34) pg MCHC 29.7 L (32-36) g/dl RDW 16.6 H (11.5-14.5) % Plt Count 220 (150-375) k/mm3 MPV 10.0 (7.4-10.4) fl Immature Gran % (Auto) 0.3 (0-0.5) % Neut % (Auto) 76.1 H (45.5-73.1) % Lymph % (Auto) 15.3 L (18.3-44.2) % [place] % (Auto) 7.9 (2.6-8.5) % Eos % (Auto) 0.3 (0-4.4) % Baso % (Auto) 0.1 L (0.2-1.2) % Lymph # (Auto) 1.09 (0.9-3.2) K/mm3 [place] # (Auto) 0.6 (0.1-0.6) K/mm3 Eos # (Auto) 0.0 (0-0.3) K/mm3 Baso # (Auto) 0.0 (0.0-0.1) K/mm3 Abs Immat Gran (auto) 0.02 (0.00-0.031) K/mm3 Absolute Neuts (auto) 5.4 (1.3-6.7) K/mm3 Absolute Nucleated RBC 0.000 (0.0-0.012) K/mm3 Band Neutrophils % Not Reportable Nucleated RBC % 0.0 (0.0-0.2) % Platelet Estimate Adequate (Adequate) Large Platelets Present Polychromasia 1+ Anisocytosis 1+ Schistocytes Not Reportable PT 14.3 (11.1-14.7) Seconds INR 1.1 APTT 26.1 (22.3-36.8) Seconds D-Dimer 0.64 H (<0.48) ug/mL Sodium 134 L (137-145) mmol/L Potassium 3.5 (3.4-5.0) mmol/L Chloride 105 (98-107) mmol/L Carbon Dioxide 21 L (22-30) mmol/L Anion Gap 8 (4-12) mmol/L BUN 6 L (7-17) mg/dL Creatinine 0.38 L (0.7-1.0) mg/dL Estim Creat Clear Calc 179 ml/min Estimated GFR > 60 (59 - ) Glucose 91 (65-110) mg/dL Calcium 8.6 (8.4-10.2) mg/dL Magnesium 1.8 (1.6-2.3) mg/dL Total Bilirubin 0.5 (0.2-1.3) mg/dL AST 25 (14-36) U/L ALT 13 (6-35) U/L Alkaline Phosphatase 55 (38-126) U/L Troponin I < 0.012 < 0.012 (0.000-0.034) ng/mL NT-Pro-B Natriuret Pep 73 (19.9-100) pg/mL Total Protein 7.0 (6.3-8.2) g/dL Albumin 3.6 (3.5-5.1) g/dL Lipase 69 (23-300) U/L <Jess Jordan PA-C - Last Filed: 07/14/24 21:33> Imaging Data Radiologist's impression: ITS Impressions Venous Doppler Study 07/14/24 20:32 IMPRESSION: 1. No deep venous thrombosis. <UMER Mills Last Filed: 07/14/24 21:33> ECG Data EKG #1: ECG completion date: 07/14/24 <UMER Mills Last Filed: 07/14/24 21:33> EKG Interpretation: normal rate, sinus rhythm, no ST changes and normal QT <UMER Mills Last Filed: 07/14/24 21:33> Critical Care Time Critical Care Time Critical Care Time: No <UMER Mills Last Filed: 07/14/24 21:33> Discharge Plan Discharge Clinical Impression: Shortness of breath <UMER Coleman Last Filed: 07/14/24 17:07> Patient Disposition: Home <UMER Coleman Last Filed: 07/14/24 17:07> Condition: Guarded Prognosis <Sissy Ortiz PA-C - Last Filed: 07/14/24 17:07> Instructions: Chest Pain (ED), Shortness of Breath (ED) <Sissy Ortiz PA-C - Last Filed: 07/14/24 17:07> Additional Instructions: Return to the Emergency Department if you experience chest pain, shortness of breath, or any other symptoms that are concerning to you Please have close follow up with your OB <Sissy Ortiz PA-C - Last Filed: 07/14/24 17:07> Patient Language: Haitian <Sissy Ortiz PA-C - Last Filed: 07/14/24 17:07> Prescriptions: No Action DHA 200 mg capsule PO ondansetron HCl 4 mg tablet 4 mg PO Q8H PRN (Reason: nausea and vomiting) Qty: 30 0RF <Sissy Ortiz PA-C - Last Filed: 07/14/24 17:07> Follow-up/Referrals: Urban,MD Kennedy [Primary Care Provider] - <Sissy Ortiz PA-C - Last Filed: 07/14/24 17:07>
[2024-07-14 17:12] LABS: Basophils Percent Auto 0.1 % (0.2-1.2); Eosinophils Percent Auto 0.3 % (0-4.4); Hemoglobin 8.9 g/dL (12.0-15.0); Immature Granulocyte Absolute 0.02 K/mm3 (0.00-0.031); Immature Granulocyte Percent A 0.3 % (0-0.5); Lymphocytes Absolute Auto 1.09 K/mm3 (0.9-3.2); Lymphocytes Percent Auto 15.3 % (18.3-44.2); Mean Corpuscular HGB Conc 29.7 g/dl (32-36); Mean Corpuscular Hemoglobin 23.4 pg (26-34); Mean Corpuscular Volume 78.9 fl (80-100); Monocytes Absolute Auto 0.6 K/mm3 (0.1-0.6); Monocytes Percent Auto 7.9 % (2.6-8.5); Neutrophils Absolute Auto 5.4 K/mm3 (1.3-6.7); Neutrophils Percent Auto 76.1 % (45.5-73.1); Platelet Count Result 220 k/mm3 (150-375); Red Cell Distribution Width 16.6 % (11.5-14.5); White Blood Count 7.1 K/mm3 (4.5-10.0)
[2024-07-14 17:22] LABS: INR 1.1; Prothrombin Time 14.3 Seconds (11.1-14.7)
[2024-07-14 17:23] LABS: Partial Thromboplastin Time 26.1 Seconds (22.3-36.8)
[2024-07-14 17:24] LABS: Alanine Aminotransferase 13 U/L (6-35); Albumin Level 3.6 g/dL (3.5-5.1); Alkaline Phosphatase 55 U/L (38-126); Anion Gap 8 mmol/L (4-12); Aspartate Amino Transferase 25 U/L (14-36); Bilirubin,Total 0.5 mg/dL (0.2-1.3); Blood Urea Nitrogen 6 mg/dL (7-17); Calcium 8.6 mg/dL (8.4-10.2); Carbon Dioxide 21 mmol/L (22-30); Chloride 105 mmol/L (98-107); Estimated CRCL calculation 179 ml/min; Estimated Glomerular Filt Rate > 60; Glucose 91 mg/dL (65-110); Lipase 69 U/L (23-300); Magnesium 1.8 mg/dL (1.6-2.3); Potassium 3.5 mmol/L (3.4-5.0); Sodium 134 mmol/L (137-145)
[2024-07-14 17:27] LABS: D Dimer 0.64 ug/mL (<0.48)
[2024-07-14 17:31] LABS: Anisocytosis 1+; Platelet Estimate Adequate (Adequate); Polychromasia 1+
[2024-07-14 17:32] LABS: Large Platelets Present
[2024-07-14 17:36] LABS: NT Pro B Type Natriuretic Pept 73 pg/mL (19.9-100); Troponin I < 0.012 ng/mL (0.000-0.034)
[2024-07-14] MEDS: SODIUM CHLORIDE 0.9% IV 1,000 ML 999 ML IV CONT (18:15)
--- OUTSIDE RECORDS SUMMARY | 2024-07-14 18:48 | XMS_ITS | Clinical Summary ---
Author Organization [facility] Address [address] [place] [address] Phone Care Team Providers Care Front Office Assistant Name Role Phone Unavailable Primary Care Provider Unavailabl e Allergies Active Allergy Reactions Criticality Noted Date Comments Amoxicillin Rash Low 02/06/2012 Medications NIFEDIPINE (PROCARDIA ORAL) Every six hours for contractions Active Active Problems Comments Yes No known active problems Encounters Date Type Department Care Team Description 07/06/2024 10:56 AM CDT - 07/06/2024 11:59 PM CDT Hospital Encounter [facility] Maternal and Ground [facility] [address] [facility] [address] [place] [address] Susan Romero MD Discharge Disposition: Home or Self Care 06/21/2024 11:00 AM CDT Initial [facility] Medicine [address] [place] [address] Susan Romero MD Abnormal ultrasound (Primary Dx); 21 weeks gestation of 06/21/2024 9:46 AM CDT - 06/21/2024 11:59 PM CDT Hospital Encounter [facility] Maternal and Ground Floor [facility] [address] [place] [address] Yeison Tinsley MD Discharge Disposition: Home or Self Care 06/09/2024 Orders Only [facility] Maternal and Ground [facility] [address] [place] [address] Yeison Tinsley MD Abnormal ultrasonic finding on screening of mother (Primary Dx) 06/08/2024 External Device Data STL ABSTRACTION Provider, Abstract 06/07/2024 12:52 PM CDT - 06/07/2024 11:59 PM CDT Hospital Encounter 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 Maternal and Ground [facility] [address] [facility] [address] [place] [address] Ray Mock MD [id number] [place] [address] Health Maintenance Due Date Last [...] THEODORE Study Date: 07/06/2024 10:07am Pat. NO: [id number] Referring MD: YEISON TINSLEY MD Site: [facility] Planning Director: Rebecca Gary RDMS : 1995 Age: 29 ----- INDICATION ----- Screening Follow-Up Pyelectasis (Renal Pyelectasis) CODING ----- Diagnoses Z3A.24: Weeks of gestation Z36.2: Encounter for other screening follow-up O28.3: Abnormal ultrasonic finding on screening of mother Procedures [id number]: Ultrasound, uterus, real time with image documentation, [...] 1 lb 9 oz EFW by Hadlock ([id number]) Head / Face / Neck Biometry: Rug Clipper 4.9 mm Extremities / Bony Struc Biometry: [...] and date of were verified by the clinical analyst prior to the exam IMPRESSION ----- -Single [...] Pat. Name:Bandar THEODORE Date:07/06/2024 10:07am Pat. NO: [id number] MD:YEISON TINSLEY MD [facility] RD[facility] :1995Age:29 ----- INDICATION ----- Screening Follow-Up Pyelectasis (Renal Pyelectasis) CODING ----- Diagnoses Z3A.24: Weeks of gestation Z36.2: Encounter for other screeningfollow-up O28.3: Abnormal ultrasonic finding on antenatalscreening of mother Procedures [id number]: Ultrasound, uterus, real time withimage documentation, follow up, transabdominal approach per fetus HISTORY ----- OB History 4. Para 3 T3L3 MATERNAL ASSESSMENT ----- Physical Exam Weight 87 kg. BMI 34.93 kg/m METHOD ----- Transabdominal ultrasound examination ----- Peres . Number of fetuses: 1 DATING ----- GA by prior [id number] w + 0 d ROCIO by prior [...] 1d 15%Hadlock OFD 82.7 mm 26w 6d >99%Itzel HC 224.1 mm 24w 3d 49%Hadlock AC 198.0 mm 24w 3d 56%Hadlock Femur 45.2 mm 25w 0d 68%Hadlock HC / AC 1.13 45%Nicolaides Weight Calculation: EFW 710 g 24w 2d 67%Hadlock EFW (lb,oz) 1 lb 9 oz EFW by Hadlock ([id number]) Head / Face / Neck Biometry: Rug Clipper 4.9mm Extremities / Bony Struc Biometry: FL [...] and date of were verified by the clinical analyst prior tothe exam IMPRESSION ----- -Single living [...] THEODORE Study Date: 06/07/2024 1:06pm Pat. NO: [id number] Referring MD: YEISON TINSLEY MD Site: [facility] Planning Director: Eden Contreras RDMS : 1995 Age: 29 ----- INDICATION ----- Anatomy Survey CODING ----- Diagnoses Z3A.19: Weeks of gestation Z36.3: Encounter for screening for malformations Procedures [id number]: Ultrasound, uterus, real time with image documentation, [...] 0 lb 13 oz EFW by Hadlock ([id number]) Head / Face / Neck Biometry: CM [...] view. RVOT view. LVOT view. 3-vessel view. 7-dqrjyd-coanhyx view. Situs. Aortic arch view. Ductal arch [...] and date of were verified by the clinical analyst before the exam. Patient's name and date of were verified by the clinical analyst before the exam IMPRESSION ----- Peres @ [...] Pat. Name:Bandar THEODORE Date:06/07/2024 1:06pm Pat. NO: [id number] MD:YEISON TINSLEY [facility]Eden Contreras RDMS :1995Age:29 ----- INDICATION ----- Anatomy Survey CODING ----- Diagnoses Z3A.19: Weeks of gestation Z36.3: Encounter for screening formalformations Procedures [id number]: Ultrasound, uterus, real time withimage documentation, and maternal evaluation plus detailed anatomic examination,transabdominal approach HISTORY ----- OB History 4. Para 3 T3L3 METHOD ----- Transabdominal ultrasound examination ----- Peres . Number of fetuses: 1 DATING ----- Method of dating:based on stated ROCIO GA by prior [id number] w + 6 d ROCIO by prior [...] 0 lb 13 oz EFW by Hadlock ([id number]) Head / Face / Neck Biometry: CM [...] 4-chamber view. RVOT view. LVOT view. 3-vesselview. 9-qugovv-ueumqid view. Situs. Aortic arch view. Ductal arch [...] and date of were verified by the clinical analyst beforethe exam. Patient's name and date of were verified by the clinical analyst before the exam IMPRESSION ----- Peres @ [...] from Last 3 Months [place] [address]
--- OUTSIDE RECORDS SUMMARY | 2024-07-14 18:48 | XMS_ITS | Clinical Summary ---
Author Organization [facility] Address [address] [place] [address] Care Team Providers Care Project Scheduler Name Role Phone Unavailable Primary Care Provider Unavailabl e Source Comments [facility],non-owned Affiliates and Associated Physician Practices is amultiple site organization consisting of ambulatory clinics and hospital sitesin [place], [place], [place] and [place]. This disclosure is being madepursuant to the Care Everywhere program and may not contain all information available regarding this patient. 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
[2024-07-14] MEDS: FAMOTIDINE 20 MG/2 ML VIAL IV PUSH (19:01)
--- NOTE | 2024-07-14 20:08 | ECG_ITS ---
Test Date: 2024-07-14 20:08:59 Measurements Intervals [place] Rate: 86 P: 46 MT: 152 QRS: 40 QRSD: 88 T: 24 QT: 383 QTc: 459 Interpretive Statements SINUS RHYTHM Compared to ECG 07/14/2024 16:59:41 No significant changes Electronically Signed On 07-16-2024 12:35:35 CDT by Maxwell Duggan M.D.
[2024-07-14 20:39] LABS: Troponin I < 0.012 ng/mL (0.000-0.034)
== END 2024-07-14 21:50 | disposition home or self-care (01) ==
PROVIDERS: Physician Assistant; Emergency Provider Physician Assistant; PCP Family Medicine
DX: O26.892 Other specified pregnancy related conditions, second trimester (principal); R06.02 Shortness of breath; Z77.29 Contact with and (suspected) exposure to other hazardous substances; Z3A.25 25 weeks gestation of pregnancy
CPT/HCPCS: 36415; 80053; 83690; 83735; 83880; 84484; 85025; 85380; 85610; 85730; 93005; 93970; 96361; 96374; 99284; J7030

== ENCOUNTER 2024-07-15 14:27 | Outpatient (CLI) | payer MEDICAID, SELFPAY ==
--- NOTE | ~2024-07-15 | CT_ITS ---
EXAMINATION: CTA chest PE protocol DATE: 07/15/2024 15:16 CDT INDICATION: 29-year-old woman with shortness of breath and chest pain TECHNIQUE: Computed tomographic angiography (CTA) of the chest was performed with 100 mL Omnipaque-35 0 intravenous contrast. The dose-length product was 288.35 mGy-cm. Maximum intensity projection 3D-re constructions of the aorta and other arteries were constructed by the technologist on a separate work station. COMPARISON: None. FINDINGS/OBSERVATIONS: PULMONARY ARTERIES: No filling defect is identified within the main or proximal pulmonary artery. The main pulmonary artery is not enlarged. THORACIC AORTA: No aneurysmal dilatation or dissection is present. The great vessels are intact LUNGS: The lungs are clear. MEDIASTINUM: No morphologically suspicious or pathologically enlarged lymph nodes are identified with in the mediastinum or bilateral axilla. BONES OF THE CHEST: No compression fracture. No significant degenerative disease. No lytic or blastic lesions. HEART: The heart is within the upper limits of normal for size, without pericardial effusion. UPPER ABDOMEN: The distal esophagus is distended, and air-filled, with a small hiatal hernia. IMPRESSION: No pulmonary embolus. No thoracic aortic dissection. The lungs are clear. The distal esophagus is somewhat distended with air. Small hiatal hernia. Reviewed, dictated and finalized at location A.
--- OUTSIDE RECORDS SUMMARY | 2024-07-15 14:33 | XMS_ITS | Clinical Summary ---
Author Organization [employer] [facility] Address [address] [place] [address] Care Team Providers Care [employer] Math Teacher Name Role Phone Unavailable Primary Care Provider Unavailabl e Source Comments [facility],non-owned Affiliates and Associated Physician Practices is amultiple site organization consisting of ambulatory clinics and hospital sitesin [place], [place], [place] and [place]. This disclosure is being madepursuant to the Care Everywhere program and may not contain all information available regarding this patient. 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
--- OUTSIDE RECORDS SUMMARY | 2024-07-15 14:33 | XMS_ITS | Clinical Summary ---
Author Organization [facility] Address [address] [place] [address] Phone Care Team Providers Care Process Developer Name Role Phone Unavailable Primary Care Provider Unavailabl e Allergies Active Allergy Reactions Criticality Noted Date Comments Amoxicillin Rash Low 02/06/2012 Medications NIFEDIPINE (PROCARDIA ORAL) Every six hours for contractions Active Active Problems Comments Yes No known active problems Encounters Date Type Department Care Team Description 07/06/2024 10:56 AM CDT - 07/06/2024 11:59 PM CDT Hospital Encounter [facility] Maternal and Ground [facility] [address] [facility] [address] [place] [address] Susan Romero MD Discharge Disposition: Home or Self Care 06/21/2024 11:00 AM CDT Initial [facility] Maternal and Medicine [address] [place] [address] Susan Romero MD Abnormal ultrasound (Primary Dx); 21 weeks gestation of 06/21/2024 9:46 AM CDT - 06/21/2024 11:59 PM CDT Hospital Encounter [facility] Maternal and Ground Floor [facility] [address] [place] [address] Yeison Tinsley MD Discharge Disposition: Home or Self Care 06/09/2024 Orders Only [facility] Maternal and Ground Floor [facility] [address] [place] [address] Yeison Tinsley MD Abnormal ultrasonic finding on screening of mother (Primary Dx) 06/08/2024 External Device Data STL ABSTRACTION Provider, Abstract 06/07/2024 12:52 PM CDT - 06/07/2024 11:59 PM CDT [facility] [place] [address] [place] [address] Yeison Tinsley MD Discharge Disposition: [...] on file 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 NO: [id number] Referring MD: YEISON TINSLEY MD Site: [facility] Stamping Die Try Out Worker: Rebecca Gary RDMS : 1995 Age: 29 ----- INDICATION ----- Screening Follow-Up Pyelectasis (Renal Pyelectasis) CODING ----- Diagnoses Z3A.24: Weeks of gestation Z36.2: Encounter for other screening follow-up O28.3: Abnormal ultrasonic finding on screening of mother Procedures [id number]: Ultrasound, uterus, real time with image documentation, [...] 1 lb 9 oz EFW by Hadlock ([id number]) Head / Face / Neck Biometry: Duct Layer 4.9 mm Extremities / Bony Struc Biometry: [...] and date of were verified by the bath mix operator prior to the exam IMPRESSION ----- -Single [...] Pat. Name:Bandar THEODORE Date:07/06/2024 10:07am Pat. NO: [id number] MD:YEISON TINSLEY MD [facility] Gary RDMS :1995Age:29 ----- INDICATION ----- Screening Follow-Up Pyelectasis (Renal Pyelectasis) CODING ----- Diagnoses Z3A.24: Weeks of gestation Z36.2: Encounter for other screeningfollow-up O28.3: Abnormal ultrasonic finding on antenatalscreening of mother Procedures [id number]: Ultrasound, uterus, real time withimage documentation, follow up, transabdominal approach per fetus HISTORY ----- OB History 4. Para 3 T3L3 MATERNAL ASSESSMENT ----- Physical Exam Weight 87 kg. BMI 34.93 kg/m METHOD ----- Transabdominal ultrasound examination ----- Peres . Number of fetuses: 1 DATING ----- GA by prior [id number] w + 0 d ROCIO by prior [...] 1 lb 9 oz EFW by Hadlock ([id number]) Head / Face / Neck Biometry: Duct Layer 4.9mm Extremities / Bony Struc Biometry: FL [...] and date of were verified by the bath mix operator prior tothe exam IMPRESSION ----- -Single living [...] THEODORE Study Date: 06/07/2024 1:06pm Pat. NO: [id number] Referring MD: YEISON TINSLEY MD Site: [place] Stamping Die Try Out Worker: Eden Contreras RDMS : 1995 Age: 29 ----- INDICATION ----- Anatomy Survey CODING ----- Diagnoses Z3A.19: Weeks of gestation Z36.3: Encounter for screening for malformations Procedures [id number]: Ultrasound, uterus, real time with image documentation, [...] 0 lb 13 oz EFW by Hadlock ([id number]) Head / Face / Neck Biometry: CM [...] view. RVOT view. LVOT view. 3-vessel view. 8-qqkgzz-cstyctk view. Situs. Aortic arch view. Ductal arch [...] and date of were verified by the bath mix operator before the exam. Patient's name and date of were verified by the bath mix operator before the exam IMPRESSION ----- Peres @ [...] Pat. Name:Bandar THEODORE Date:06/07/2024 1:06pm Pat. NO: [id number] MD:YEISON TINSLEY MD [facility]:Eden Contreras RDMS :1995Age:29 ----- INDICATION ----- Anatomy Survey CODING ----- Diagnoses Z3A.19: Weeks of gestation Z36.3: Encounter for screening formalformations Procedures [id number]: Ultrasound, uterus, real time withimage documentation, and maternal evaluation plus detailed anatomic examination,transabdominal approach HISTORY ----- OB History 4. Para 3 T3L3 METHOD ----- Transabdominal ultrasound examination ----- Peres . Number of fetuses: 1 DATING ----- Method of dating:based on stated ROCIO GA by prior [id number] w + 6 d ROCIO by prior [...] 0 lb 13 oz EFW by Hadlock ([id number]) Head / Face / Neck Biometry: CM [...] 4-chamber view. RVOT view. LVOT view. 3-vesselview. 9-dbgwgd-dylzbkv view. Situs. Aortic arch view. Ductal arch [...] and date of were verified by the bath mix operator beforethe exam. Patient's name and date of were verified by the bath mix operator before the exam IMPRESSION ----- Peres @ [...]
== END 2024-07-15 14:28 | disposition home or self-care (01) ==
PROVIDERS: Visit Provider Obstetrics & Gynecology
DX: O99.891 Other specified diseases and conditions complicating pregnancy (principal); R06.02 Shortness of breath; R07.9 Chest pain, unspecified; Z3A.00 Weeks of gestation of pregnancy not specified
CPT/HCPCS: 71275; Q9967

== ENCOUNTER 2024-07-29 13:17 | Outpatient (CLI) | payer MEDICAID, SELFPAY ==
[2024-07-29] VITALS (14 sets, daily range): BP systolic 82–103; BP diastolic 45–74; PULSE 83–111; TEMP 36.1
--- OUTSIDE RECORDS SUMMARY | 2024-07-29 14:04 | XMS_ITS | Clinical Summary ---
Author Organization [email or web address] Address [address] [place] [address] Care Team Providers Care Lecturer In Marketing Name Role Phone Unavailable Primary Care Provider Unavailabl e Source Comments [facility],non-owned Affiliates and Associated Physician Practices is amultiple site organization consisting of ambulatory clinics and hospital sitesin [place], [place] and [place]. This disclosure is being madepursuant to the Care Everywhere program and may not contain all information available regarding this patient. 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
--- OUTSIDE RECORDS SUMMARY | 2024-07-29 14:04 | XMS_ITS | Clinical Summary ---
Author Organization [facility] Address [address] [place] [address] Phone Care Team Providers Care Utility Lineman Name Role Phone Unavailable Primary Care Provider Unavailabl e Allergies Active Allergy Reactions Criticality Noted Date Comments Amoxicillin Rash Low 02/06/2012 Medications NIFEDIPINE (PROCARDIA ORAL) Every six hours for contractions Active Active Problems Comments Yes No known active problems Encounters Date Type Department Care Team Description 07/06/2024 10:56 AM CDT - 07/06/2024 11:59 PM CDT Hospital Encounter [facility] Maternal and Ground Floor [address] [facility] [address] [place] [address] Susan Romero MD Discharge Disposition: Home or Self Care 06/21/2024 11:00 AM CDT Initial [facility] Maternal and Medicine [address] [place] [address] Susan Romero MD Abnormal ultrasound (Primary Dx); 21 weeks gestation of 06/21/2024 9:46 AM CDT - 06/21/2024 11:59 PM CDT Hospital Encounter [facility] Maternal and Ground Floor [facility] [address] [place] [address] Yeison Tinsley MD Discharge Disposition: Home or Self Care 06/09/2024 Orders Only [facility] Maternal and Ground Floor [facility] [address] [place] [address] Yeison Tinsley MD Abnormal ultrasonic finding on screening of mother (Primary Dx) 06/08/2024 External Device Data STL ABSTRACTION Provider, Abstract 06/07/2024 12:52 PM CDT - 06/07/2024 11:59 PM CDT [facility] [place] [address] [place] [address] Yeison Tinsley MD Discharge Disposition: [...] on file 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 NO: [id number] Referring MD: YEISON TINSLEY MD Site: [facility] Tool And Fixture Repairer: Rebecca Gary RDMS : 1995 Age: 29 ----- INDICATION ----- Screening Follow-Up Pyelectasis (Renal Pyelectasis) CODING ----- Diagnoses Z3A.24: Weeks of gestation Z36.2: Encounter for other screening follow-up O28.3: Abnormal ultrasonic finding on screening of mother Procedures [id number]: Ultrasound, uterus, real time with image documentation, [...] 1 lb 9 oz EFW by Hadlock ([id number]) Head / Face / Neck Biometry: Clerk Guide 4.9 mm Extremities / Bony Struc Biometry: [...] and date of were verified by the tank systems maintainer prior to the exam IMPRESSION ----- -Single [...] Pat. Name:Bandar THEODORE Date:07/06/2024 10:07am Pat. NO: [id number] MD:YEISON TINSLEY MD [facility]:Rebecca Gary RDMS :1995Age:29 ----- INDICATION ----- Screening Follow-Up Pyelectasis (Renal Pyelectasis) CODING ----- Diagnoses Z3A.24: Weeks of gestation Z36.2: Encounter for other screeningfollow-up O28.3: Abnormal ultrasonic finding on antenatalscreening of mother Procedures [id number]: Ultrasound, uterus, real time withimage documentation, follow up, transabdominal approach per fetus HISTORY ----- OB History 4. Para 3 T3L3 MATERNAL ASSESSMENT ----- Physical Exam Weight 87 kg. BMI 34.93 kg/m METHOD ----- Transabdominal ultrasound examination ----- Peres . Number of fetuses: 1 DATING ----- GA by prior [id number] w + 0 d ROCIO by prior [...] 1 lb 9 oz EFW by Hadlock ([id number]-FL) Head / Face / Neck Biometry: Clerk Guide 4.9mm Extremities / Bony Struc Biometry: FL [...] and date of were verified by the tank systems maintainer prior tothe exam IMPRESSION ----- -Single living [...] THEODORE Study Date: 06/07/2024 1:06pm Pat. NO: [id number] Referring MD: YEISON TINSLEY MD Site: [place] [employer] Fixture Repairer: Eden Contreras RDMS : 1995 Age: 29 ----- INDICATION ----- Anatomy Survey CODING ----- Diagnoses Z3A.19: Weeks of gestation Z36.3: Encounter for screening for malformations Procedures [id number]: Ultrasound, uterus, real time with image documentation, [...] 0 lb 13 oz EFW by Hadlock ([id number]) Head / Face / Neck Biometry: CM [...] view. RVOT view. LVOT view. 3-vessel view. 9-ruxvbz-getfaqo view. Situs. Aortic arch view. Ductal arch [...] and date of were verified by the tank systems maintainer before the exam. Patient's name and date of were verified by the tank systems maintainer before the exam IMPRESSION ----- Peres @ [...] Pat. Name:Bandar THEODORE Date:06/07/2024 1:06pm Pat. NO: [id number] MD:YEISON TINSLEY MD [facility]den Contreras RDMS :1995Age:29 ----- INDICATION ----- Anatomy Survey CODING ----- Diagnoses Z3A.19: Weeks of gestation Z36.3: Encounter for screening formalformations Procedures [id number]: Ultrasound, uterus, real time withimage documentation, and maternal evaluation plus detailed anatomic examination,transabdominal approach HISTORY ----- OB History 4. Para 3 T3L3 METHOD ----- Transabdominal ultrasound examination ----- Peres . Number of fetuses: 1 DATING ----- Method of dating:based on stated ROCIO GA by prior [id number] w + 6 d ROCIO by prior [...] 0 lb 13 oz EFW by Hadlock ([id number]) Head / Face / Neck Biometry: CM [...] 4-chamber view. RVOT view. LVOT view. 3-vesselview. 7-dmwtoo-acuvkdd view. Situs. Aortic arch view. Ductal arch [...] and date of were verified by the tank systems maintainer beforethe exam. Patient's name and date of were verified by the tank systems maintainer before the exam IMPRESSION ----- Peres @ [...]
[2024-07-29] MEDS: DEXTROSE 5%/LACTATED RINGERS 1,000 ML 999 ML IV CONT (14:05)
== END 2024-07-29 16:15 | disposition home or self-care (01) ==
LOC: ANHOBOP 13:27 → ANHOBPP 13:29
PROVIDERS: Visit Provider Obstetrics & Gynecology
DX: O13.9 Gestational [pregnancy-induced] hypertension without significant proteinuria, unspecified trimester (principal); Z3A.00 Weeks of gestation of pregnancy not specified
CPT/HCPCS: 59025; 99199; J7121

== ENCOUNTER 2024-09-07 12:29 | Observation (INO) | payer BC, OTHER, SELFPAY ==
[2024-09-07] VITALS (7 sets, daily range): BP systolic 85–99; BP diastolic 53–61; PULSE 81–91; TEMP 35.8; BMI 33.5
--- NOTE | ~2024-09-07 | US_ITS ---
LIMITED OBSTETRIC ULTRASOUND/BIOPHYSICAL PROFILE Ordering provider: Yeison Smith MD History: . NRNST/ BPP and AMAURY . Comparison: None. FINDINGS: MATERNAL CERVIX: Measures 2.7 cm. Final length is seen in the cervix measuring 2.2 cm. PRESENTATION: Vertex. Longitudinal lie. PLACENTAL LOCATION: Maternal left. No previa. HEART RATE: 136 bpm (normal is between 110 to 160 bpm). AMNIOTIC FLUID INDEX: 9.2 cm. 5th percentile is a 8.3 cm. 95 th percentile is 24.5 cm. Largest verti felecia pocket is 5.5 cm. normal (AMAURY between 5-25 cm in from 20-35 weeks gestation is considered normal) . OTHER: Maternal ovaries not visualized. SCORE: breathing movements: 2 movements: 2 tone: 2 Amniotic fluid volume: 2 Total: 8 IMPRESSION: Normal biophysical profile. Reviewed, dictated and finalized at location A. IMPRESSION: Normal biophysical profile.
--- OUTSIDE RECORDS SUMMARY | 2024-09-07 12:36 | XMS_ITS | Clinical Summary ---
Author Organization [employer] [facility] Address [address] [place] [address] Care Team Providers Care Pictures Editor Name Role Phone Unavailable Primary Care Provider Unavailabl e Source Comments [facility],non-owned Affiliates and Associated Physician Practices is amultiple site organization consisting of ambulatory clinics and hospital sitesin [place] and [place]. This disclosure is being madepursuant to the Care Everywhere program and may not contain all information available regarding this patient. 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 Advance Directives * FULL RESUSCITATION (Latest Code Status on File) Date Activated Date Inactivated Comments 12/15/2011 12:54 PM 12/18/2011 2:56 PM
--- OUTSIDE RECORDS SUMMARY | 2024-09-07 12:36 | XMS_ITS | Clinical Summary ---
Author Organization [facility] Address [address] [place] [address] Phone Care Team Providers Care Dip Stand Loader Name Role Phone Unavailable Primary Care Provider Unavailabl e Allergies Active Allergy Reactions Criticality Noted Date Comments Amoxicillin Rash Low 02/06/2012 Medications NIFEDIPINE (PROCARDIA ORAL) Every six hours for contractions Active Active Problems Comments Yes No known active problems Encounters Date Type Department Care Team Description 08/31/2024 9:59 AM CDT - 08/31/2024 11:59 PM CDT Hospital Encounter [facility] and Ground Floor S [address] [phone] Ray Mock MD Discharge Disposition: Home or Self Care 08/24/2024 External Device Data STL ABSTRACTION Provider, Abstract 08/10/2024 External Device Data STL ABSTRACTION Provider, Abstract 07/06/2024 10:56 AM CDT - 07/06/2024 11:59 PM CDT Hospital Encounter [facility] and Ground Floor [address] [address] Susan Romero MD Discharge Disposition: Home or Self Care 06/21/2024 11:00 AM CDT Initial [facility] M[facility] and Medicine [address] [place] [address] Susan Romero MD Abnormal ultrasound (Primary Dx); 21 weeks gestation of 06/21/2024 9:46 AM CDT - 06/21/2024 11:59 PM CDT Hospital Encounter [facility] and Ground Floor S [facility] [address] [facility] [place] [phone] Yeison Tinsley MD Discharge Disposition: Home or Self Care 06/09/2024 Orders Only [facility] S [facility] [address] [facility] [place] [phone] Yeison Tinsley MD Abnormal ultrasonic finding on screening of mother (Primary Dx) 06/08/2024 External Device Data STL ABSTRACTION Provider, Abstract from Last 3 Months Social History Tobacco Use Types Packs/Day Years Used Date Smoking Tobacco: Never Smokeless Tobacco: Never Alcohol Use Standard Drinks/Week Comments No 0 (1 standard drink = 0.6 oz pur e alcohol) Comments Yes Sex and Gender Information Value Date Recorded Sex Assigned at Not on file 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 Gender Identity Not on file Sexual Orientation [...] Care Team (Late st Contact Info) Description 09/29/2024 10:00 AM CDT Appointment [facility] S [facility] [address] [facility] [place] [phone] Vijaya Herrmann MD [address] [facility] [address] [place] [phone] Health Maintenance Due Date Last Done Comments DTAP/TDAP/TD VACCINES (1 - Tdap) 01/23/2012 HEPATITIS B VACCINES (1 of 3 - 19+ 3-dose series) 01/23/2012 HPV/Cotest (21-29) 2014 CERVICAL CANCER SCREENING 2023 HPV/Cotest (30-65) 2023 PAP SMEAR 2023 INFLUENZA VACCINE (#1) 2024 RSV VACCINE (60+ or ) (1 - 1-dose 75+ series) 01/23/2068 HPV VACCINES Aged Out No longer eligi ble based on patient's age to complete this topic Procedures Procedure Name Priority Date/Time Associated Diagnosis Comments US OB FOLLOW UP PER FETUS Routine 08/31/2024 10:30 AM CDT Encounter for repeat ultrasound of pyelectasis in peres , antepartum US OB FOLLOW UP PER FETUS Routine 07/06/2024 11:29 AM CDT Encounter for repeat ultrasound of pyelectasis in peres , antepartum US OB FOLLOW UP PER FETUS Routine 06/21/2024 10:24 AM CDT Abnormal ultrasound from Last 3 Months Results * US OB FOLLOW UP PER FETUS (08/31/2024 10:30 AM CDT) Only the most recent of3 resultswithin the time period is included. Anatomical Region Laterality Modality Pelvis Ultrasound 08/31/2024 10:1 4 AM CDT Narrative 08/31/2024 10:36 AM CDT STL FOLLOW UP ----- Pat. Name: JOHAN THEODORE Study Date: 08/31/2024 10:14am Pat. NO: [id number] Referring MD: YEISON TINSLEY MD Site: [facility] Caregiver: Erica Emerson RDMS : 1995 Age: 29 ----- INDICATION ----- Screening Follow-Up Pyelectasis (Renal Pyelectasis) CODING ----- Diagnoses Z3A.32: Weeks of gestation Z36.2: Encounter for other screening follow-up O28.3: Abnormal ultrasonic finding on screening of mother Procedures [id number]: Ultrasound, uterus, real time with image documentation, follow up, transabdominal approach per fetus HISTORY ----- OB History 4. Para 3 T3L3 MATERNAL ASSESSMENT ----- Physical Exam Weight 87 kg. BMI 34.93 kg/m METHOD ----- Transabdominal ultrasound examination ----- Peres . Number of fetuses: 1 DATING ----- GA by prior assessment 32 w + 0 d ROCIO by prior assessment: 10/26/2024 Ultrasound examination on: 08/31/2024 GA by U/S based upon: AC, BPD, EFW, Femur, HC GA by U/S 33 w + 0 d ROCIO by U/S: 10/19/2024 Method of dating: Restore dating from previous exam Assigned: based on stated ROCIO, selected on 06/07/2024 Assigned GA 32 w + 0 d Assigned ROCIO: 10/26/2024 BIOMETRY ----- BPD 80.0 mm 32w 1d 45% Hadlock OFD 111.4 mm 37w 3d >99% Itzel HC 308.0 mm 34w 3d 76% Hadlock AC 286.7 mm 32w 5d 69% Hadlock Femur 64.2 mm 33w 1d 69% Hadlock HC / AC 1.07 56% Nicolaides Weight Calculation: EFW 2,084 g 32w 4d 69% Hadlock EFW (lb,oz) 4 lb 10 oz EFW by Hadlock (ACT-[id number]-FL) Extremities / Bony Struc Biometry: FL / BPD 0.80 FL / HC 0.21 FL / AC 0.22 GENERAL EVALUATION ----- Cardiac activity present. FHR 137 bpm. movements: present. Presentation: breech Placenta: Placental site: right lateral Umbilical cord: Cord vessels: 3 vessel cord. Insertion site: placental insertion: normal Amniotic fluid: Amount of AF: normal amount. MVP 3.6 cm. AMAURY 11.3 cm. Q1 2.0 cm, Q2 3.6 cm, Q3 3.4 cm, Q4 2.4 cm ANATOMY ----- The following structures appear abnormal: Abdomen Right kidney: urinary tract , dilatation measuring 12.1mm. The following structures appear normal: Head / Neck Cranium. Heart / Thorax Diaphragm. Abdomen Stomach. Left kidney. Bladder. GROWTH OVERVIEW ----- Exam date GA BPD (mm) HC (mm) AC (mm) FL (mm) HL (mm) EFW (g) 06/07/2024 19w 6d 46.4 57% 179.6 68% 155.1 72% 34.5 77% 32.1 84% 371 87% 07/06/2024 24w 0d 56.0 15% 224.1 49% 198.0 56% 45.2 68% 710 67% 08/31/2024 32w 0d 80.0 45% 308.0 76% 286.7 69% 64.2 69% 2,084 69% COMMENT ----- Patient's name and date of were verified by the clinical athletic instructor prior to the exam IMPRESSION ----- Impression: Peres viable intrauterine at 32w 0d in breech presentation. Estimated weight is 2084 g (69%ile) with abdominal circumference at the 69%ile. Amniotic fluid volume is normal amount, (Amniotic fluid index = 11.3 cm, maximum vertical pocket = 3.6 cm). Right A2-3UTD with renal pelvis dilation of 11mm. Recommendation: Follow up ultrasound for growth and evaluation of UTD in 4 weeks. Referral to [facility] urology through care team. renal imaging. Thank you for inviting us to participate in your patient's care Procedure Note Vijaya Herrmann MD - 08/31/2024 ST FOLLOW UP ----- Pat. Name:Bandar THEODORE Date:08/31/2024 10:14am Pat. NO: [id number] MD:YEISON TINSLEY MD [facility]Erica Emerson RDMS :1995Age:29 ----- INDICATION ----- Screening Follow-Up Pyelectasis (Renal Pyelectasis) CODING ----- Diagnoses Z3A.32: Weeks of gestation Z36.2: Encounter for other screeningfollow-up O28.3: Abnormal ultrasonic finding on antenatalscreening of mother Procedures [id number]: Ultrasound, uterus, real time withimage documentation, follow up, transabdominal approach per fetus HISTORY ----- OB History 4. Para 3 T3L3 MATERNAL ASSESSMENT ----- Physical Exam Weight 87 kg. BMI 34.93 kg/m METHOD ----- Transabdominal ultrasound examination ----- Peres . Number of fetuses: 1 DATING ----- GA by prior [id number] w + 0 d ROCIO by prior assessment:10/26/2024 Ultrasound examination on:08/31/2024 GA by U/S based upon:AC, BPD, EFW, Femur, HC GA by U/S33 w + 0 d ROCIO by U/S:10/19/2024 Method of dating:Restore dating from previous exam Assigned:based on stated ROCIO, selected on 06/07/2024 Assigned GA32 w + 0 d Assigned ROCIO:10/26/2024 BIOMETRY ----- BPD 80.0 mm 32w 1d 45%Hadlock OFD 111.4 mm 37w 3d >99%Itzel HC 308.0 mm 34w 3d 76%Hadlock AC 286.7 mm 32w 5d 69%Hadlock Femur 64.2 mm 33w 1d 69%Hadlock HC / AC 1.07 56%Nicolaides Weight Calculation: EFW 2,084 g 32w 4d69% Hadlock EFW (lb,oz) 4 lb 10 oz EFW by Hadlock (QOW-HS-[id number]-FL) Extremities / Bony Struc Biometry: FL / BPD 0.80 FL / HC 0.21 FL / AC 0.22 GENERAL EVALUATION ----- Cardiac activity present. FHR 137 bpm. movements: present.Presentation: breech Placenta: Placental site: right lateral Umbilical cord: Cord vessels: 3 vessel cord. Insertion site: placentalinsertion: normal Amniotic fluid: Amount of AF: normal amount. MVP 3.6 cm. AMAURY 11.3 cm. Q12.0 cm, Q2 3.6 cm, Q3 3.4 cm, Q4 2.4 cm ANATOMY ----- The following structures appear abnormal: Abdomen Right kidney: urinary tract , dilatation [id number]. The following structures appear normal: Head / Neck Cranium. Heart / Thorax Diaphragm. Abdomen Stomach. Left kidney. Bladder. GROWTH OVERVIEW ----- Exam date GA BPD (mm) HC (mm) AC (mm) FL(mm) HL (mm) EFW (g) 06/07/2024 19w 6d 46.4 57% 179.6 68% 155.1 72%34.5 77% 32.1 84% 371 87% 07/06/2024 24w 0d 56.0 15% 224.1 49% 198.0 56%45.2 68% 710 67% 08/31/2024 32w 0d 80.0 45% 308.0 76% 286.7 69%64.2 69% 2,084 69% COMMENT ----- Patient's name and date of were verified by the clinical athletic instructor prior tothe exam IMPRESSION ----- Impression: Peres viable intrauterine at 32w 0d in breechpresentation. Estimated weight is 2084 g (69%ile) with abdominal circumference atthe 69%ile. Amniotic fluid volume is normal amount, (Amniotic fluid index = 11.3 cm,maximum vertical pocket = 3.6 cm). Right A2-3UTD with renal pelvis dilation of 11mm. Recommendation: Follow up ultrasound for growth and evaluation of UTD in 4 weeks. Referral to [facility] urology through care team. renal imaging. Thank you for inviting us to participate in your patient's care us Ray Mock MD US ORDERABLES Final Result from Last 3 Months Insurance [place] [address]
--- NOTE | 2024-09-07 12:59 | OBADM ---
This patient, Woodrow Marques, admitted to the OB room OB Post 113 for observation. Patient/family oriented to hospital policies and general routines including ID bracelet, bed and alarms, visiting hours, pain management, procedures, bathroom and other care routines, personal items, smoking policy, room service/diet, and visiting hours. Patient/Family are encouraged to report perceived risks to care and to ask questions if they do not understand what they are told or what they should do.
[2024-09-07 13:42] LABS: Add Urine Microscopic? YES; Appearance Urine Cloudy (Clear); Glucose Urine UA Negative (Negative); Leukocyte Esterase Ur Trace LEU/UL (Negative); Need Manual Microscopic Reviewed; Nitrate Urine Negative (Negative); Non Pathogenic Casts 0-2; Specific Grav Ur 1.017 (1.001-1.035)
--- NOTE | 2024-09-22 13:07 | PM.OBTRLD ---
OB - Triage/Final Diagnosis Visit Information Comments/Additional reasons for admission: I have assessed the risk for this patient, Woodrow Marques, and determined that she would benefit from observation care. Evaluation Laboratory results: Laboratory Tests 09/07/24 13:10 Urine Color Yellow Urine Appearance Cloudy H Urine pH 6.5 Ur Specific [place] 1.017 Urine Protein Negative Urine Glucose (UA) Negative Urine Ketones 1+ H Ur Blood (Man) Negative Urine Nitrate Negative Urine Bilirubin Negative Urine Urobilinogen 1.0 Add Ur Microanalysis Reviewed Leukocyte Esterase Rfl Trace H Urine RBC 6-10 H Urine WBC 0-5 Ur Squamous Epith Cells Occasional Urine Bacteria None seen Urine Casts 0-2 Final Diagnosis (1) Anemia affecting : Code(s): O99.019 - Anemia complicating , unspecified trimester Status: Acute
== END 2024-09-07 16:00 | disposition home or self-care (01) ==
PROVIDERS: Admitting Provider Obstetrics & Gynecology; Visit Provider Obstetrics & Gynecology
DX: O99.013 Anemia complicating pregnancy, third trimester (principal); D64.9 Anemia, unspecified; Z3A.33 33 weeks gestation of pregnancy
CPT/HCPCS: 76819; 81001; G0378; G0379

== ENCOUNTER 2024-10-03 10:42 | Observation (INO) | payer BC, OTHER, SELFPAY ==
[2024-10-03 11:01] VITALS: BP 100/59; PULSE 87
[2024-10-03 11:15] VITALS: BP 102/69; PULSE 94
--- OUTSIDE RECORDS SUMMARY | 2024-10-03 11:20 | XMS_ITS | Clinical Summary ---
Author Organization [facility] Address [address] [place] [address] Care Team Providers Care Wood Craftsman Name Role Phone Unavailable Primary Care Provider Unavailabl e Source Comments [facility],non-owned Affiliates and Associated Physician Practices is amultiple site organization consisting of ambulatory clinics and hospital sitesin [place], [place], [place] and [place]. This disclosure is being madepursuant to the Care Everywhere program and may not contain all information available regarding this patient. 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
--- OUTSIDE RECORDS SUMMARY | 2024-10-03 11:20 | XMS_ITS | Continuity of Care Document ---
Author Organization [facility] Address [address] [place] [address] Phone Care Team Providers Care Senior Mechanical Technician Name Role Phone Unavailable Unavailable Unavailable Advance Directives Directive Yes / No Effective Date File Name No Information Encounters Encounter Description Practice Location Reason(s) For Visit Diagnoses Date Provider Providers Copied on Encounter [facility], [address], [place], [place], [id number], [place] tel:[phone] [facility] No Information No Information Referring Provider: REFERRAL SELF. Family History Family Member Type Diagnosis Age At Onset No Information Payers Payer name Insurance type Covered green party ID Authoriza chip(s) ON LICENSE OF [facility] [place] O [id number] Social History Type Description Quantity Date Captured Comments Sex Female Smoking Status No Information Chief Complaint And Reason For Visit No Information History Of Present Illness Encounter Date Complaint History Of Prese nt Illness No Information Instructions Date Instruction Additional Infor mation No Information Assessments Type Assessment Date No Information
--- OUTSIDE RECORDS SUMMARY | 2024-10-03 11:20 | XMS_ITS | Clinical Summary ---
Author Organization [facility] Address [address] [place] [address] Phone Care Team Providers Care Contracting Manager Name Role Phone Unavailable Primary Care Provider Unavailabl e Allergies Active Allergy Reactions Criticality Noted Date Comments Amoxicillin Rash Low 02/06/2012 Medications NIFEDIPINE (PROCARDIA ORAL) Every six hours for contractions Active Active Problems Comments Yes No known active problems Encounters Date Type Department Care Team Description 09/29/2024 11:00 AM CDT visit [facility] [address] [place] [phone] Will Nassar MD 09/29/2024 10:00 AM CDT - 09/29/2024 11:59 PM CDT Hospital Encounter [facility] Maternal and Ground Floor S [facility] [address] [place] [phone] Vijaya Herrmann MD Arrived Discharge Disposition: Home or Self Care 09/29/2024 External Device Data STL ABSTRACTION Provider, Abstract 09/28/2024 External Device Data STL ABSTRACTION Provider, Abstract 09/08/2024 External Device Data STL ABSTRACTION Provider, Abstract 09/07/2024 External Device Data STL ABSTRACTION Provider, Abstract 08/31/2024 9:59 AM CDT - 08/31/2024 11:59 PM CDT Hospital Encounter [facility] Maternal and Ground Floor S [facility] [address] [place] [phone] Ray Mock MD Discharge Disposition: Home or Self Care 08/24/2024 External Device Data STL ABSTRACTION Provider, Abstract 08/10/2024 External Device Data STL ABSTRACTION Provider, Abstract 07/06/2024 10:56 AM CDT - 07/06/2024 11:59 PM CDT Hospital Encounter [facility] S [facility] [address] [place] [address] Susan Romero MD Discharge Disposition: Home or [...] on file 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 Gender Identity Not on file Sexual Orientation Not on file Occupation Industry Job Start Date Job End Date Not on file Not on file Not on file Not on file Last Filed Vital Signs Vital Sign Reading Time Taken Comments Blood Pressure 110/62 09/29/2024 11:01 AM CDT Pulse 80 06/21/2024 10:32 AM CDT Temperature 36.7 C (98 F) 09/29/2024 11:01 AM CDT Respiratory Rate - - Oxygen Saturation - - Inhaled Oxygen Concentration - - Weight 89.1 kg (196 lb 6.4 oz) 09/29/2024 11:01 AM CDT Height 163 cm (5' 4.17) 09/29/2024 11:01 AM CDT Body Mass Index 33.53 09/29/2024 11:01 AM CDT Plan of Treatment Health Maintenance Due Date Last Done Comments HPV VACCINES (1 - 3-dose series) 01/23/2008 DTAP/TDAP/TD VACCINES (1 - Tdap) 01/23/2012 HEPATITIS B VACCINES (1 of 3 - 19+ 3-dose series) 12/26 HPV/Cotest (21-29) 2014 CERVICAL CANCER SCREENING 2023 HPV/Cotest (30-65) 2023 PAP SMEAR 2023 INFLUENZA VACCINE (#1) 2024 RSV VACCINE (60+ or ) (1 - 1-dose 75+ series) 01/23/2068 Procedures Procedure Name Priority Date/Time Associated Diagnosis Comments US OB FOLLOW UP PER FETUS Routine 09/29/2024 10:39 AM CDT Encounter for repeat ultrasound of pyelectasis in peres , antepartum US OB FOLLOW UP PER FETUS Routine 08/31/2024 10:30 AM CDT Encounter for repeat ultrasound of pyelectasis in peres , antepartum US OB FOLLOW UP PER FETUS Routine 07/06/2024 11:29 AM CDT Encounter for repeat ultrasound of pyelectasis in peres , antepartum from Last 3 Months Results * US OB FOLLOW UP PER FETUS (09/29/2024 10:39 AM CDT) Only the most recent of3 resultswithin the time period is included. Anatomical Region Laterality Modality Pelvis Ultrasound 09/29/2024 9:24 AM CDT Narrative 09/29/2024 10:43 AM CDT STL FOLLOW UP ----- Pat. Name: JOHAN THEODORE Study Date: 09/29/2024 9:24am Pat. NO: [id number] Referring MD: ORBERT TINSLEY MD Site: [facility] Unit Assistant: Rebecca Gary RDMS : 1995 Age: 29 ----- INDICATION ----- Screening Follow-Up Pyelectasis (Renal Pyelectasis) CODING ----- Diagnoses Z3A.36: Weeks of gestation Z36.2: Encounter for other screening follow-up O28.3: Abnormal ultrasonic finding on screening of mother Procedures [id number]: Ultrasound, uterus, real time with image documentation, follow up, transabdominal approach per fetus HISTORY ----- OB History 4. Para 3 T3L3 MATERNAL ASSESSMENT ----- Physical Exam Weight 87 kg. BMI 34.93 kg/m METHOD ----- Transabdominal ultrasound examination ----- Peres . Number of fetuses: 1 DATING ----- GA by prior assessment 36 w + 1 d ROCIO by prior assessment: 10/26/2024 Ultrasound examination on: 09/29/2024 GA by U/S based upon: AC, BPD, EFW, Femur, HC GA by U/S 36 w + 5 d ROCIO by U/S: 10/22/2024 Method of dating: Restore dating from previous exam Assigned: based on stated ROCIO, selected on 06/07/2024 Assigned GA 36 w + 1 d Assigned ROCIO: 10/26/2024 BIOMETRY ----- BPD 89.5 mm 36w 2d 62% Hadlock OFD 121.4 mm -/- >99% Itzel HC 337.9 mm 38w 5d 82% Hadlock AC 329.1 mm 36w 6d 78% Hadlock Femur 68.7 mm 35w 2d 24% Hadlock HC / AC 1.03 55% Nicolaides Weight Calculation: EFW 2,976 g 36w 5d 64% Hadlock EFW (lb,oz) 6 lb 9 oz EFW by Hadlock ([id number]-FL) Extremities / Bony Struc Biometry: FL / BPD 0.77 FL / HC 0.20 FL / AC 0.21 GENERAL EVALUATION ----- Cardiac activity present. FHR 134 bpm. movements: present. Presentation: cephalic Placenta: Placental site: posterior Umbilical cord: Cord vessels: 3 vessel cord. Insertion site: placental insertion: normal Amniotic fluid: Amount of AF: normal amount. MVP 5.2 cm. AMAURY 9.9 cm. Q1 0.0 cm, Q2 5.2 cm, Q3 2.5 cm, Q4 2.3 cm ANATOMY ----- Abdomen Right kidney: 1.02 cm Left kidney: .96 cm The following structures appear normal: Head / [...] 76% 286.7 69% 64.2 69% 2,084 69% 09/29/2024 36w 1d 89.5 62% 337.9 82% 329.1 78% 68.7 24% 2,976 64% COMMENT ----- Patient's name and date of were verified by the control and recovery combat rescue prior to the exam IMPRESSION ----- Peres @ 36w 1d complicated by urinary tract dilation. She is enrolled in the Care Team and is followed by pediatric urology. - The biometry is consistent with dates with the EFW at the 64% percentile. - Amniotic fluid indices are within normal limits. - Limited anatomy is notable for bilateral UTD with the measurements above. Further ultrasounds may be scheduled as clinically indicated. Thank you for allowing us to participate in the care of this patient. Procedure Note Susan Romero MD - 09/29/2024 ST FOLLOW UP ----- Pat. Name:Bandar THEODORE Date:09/29/2024 9:24am Pat. NO: [id number] MD:ROBERT TINSLEY MD [facility] Gary RDMS :1995Age:29 ----- INDICATION ----- Screening Follow-Up Pyelectasis (Renal Pyelectasis) CODING ----- Diagnoses Z3A.36: Weeks of gestation Z36.2: Encounter for other screeningfollow-up O28.3: Abnormal ultrasonic finding on antenatalscreening of mother Procedures [id number]: Ultrasound, uterus, real time withimage documentation, follow up, transabdominal approach per fetus HISTORY ----- OB History 4. Para 3 T3L3 MATERNAL ASSESSMENT ----- Physical Exam Weight 87 kg. BMI 34.93 kg/m METHOD ----- Transabdominal ultrasound examination ----- Peres . Number of fetuses: 1 DATING ----- GA by prior [id number] w + 1 d ROCIO by prior assessment:10/26/2024 Ultrasound examination on:09/29/2024 GA by U/S based upon:AC, BPD, EFW, Femur, HC GA by U/S36 w + 5 d ROCIO by U/S:10/22/2024 Method of dating:Restore dating from previous exam Assigned:based on stated ROCIO, selected on 06/07/2024 Assigned GA36 w + 1 d Assigned ROCIO:10/26/2024 BIOMETRY ----- BPD 89.5 mm 36w 2d 62%Hadlock OFD 121.4 mm -/- >99%Itzel HC 337.9 mm 38w 5d 82%Hadlock AC 329.1 mm 36w 6d 78%Hadlock Femur 68.7 mm 35w 2d 24%Hadlock HC / AC 1.03 55%Nicolaides Weight Calculation: EFW 2,976 g 36w 5d64% Hadlock EFW (lb,oz) 6 lb 9 oz EFW by Hadlock ([id number]-FL) Extremities / Bony Struc Biometry: FL / BPD 0.77 FL / HC 0.20 FL / AC 0.21 GENERAL EVALUATION ----- Cardiac activity present. FHR 134 bpm. movements: present.Presentation: cephalic Placenta: Placental site: posterior Umbilical cord: Cord vessels: 3 vessel cord. Insertion site: placentalinsertion: normal Amniotic fluid: Amount of AF: normal amount. MVP 5.2 cm. AMAURY 9.9 cm. Q10.0 cm, Q2 5.2 cm, Q3 2.5 cm, Q4 2.3 cm ANATOMY ----- Abdomen Right kidney: 1.02 cm Left kidney: .96 cm The following structures appear normal: Head / [...] 308.0 76% 286.7 69%64.2 69% 2,084 69% 09/29/2024 36w 1d 89.5 62% 337.9 82% 329.1 78%68.7 24% 2,976 64% COMMENT ----- Patient's name and date of were verified by the control and recovery combat rescue prior tothe exam IMPRESSION ----- Peres @ 36w 1d complicated by urinary tract dilation. She is enrolled in the Care Team and is followed by pediatricurology. - The biometry is consistent with dates with the EFW at the 64%percentile. - Amniotic fluid indices are within normal limits. - Limited anatomy is notable for bilateral UTD with the measurementsabove. Further ultrasounds may be scheduled as clinically indicated. Thank you for allowing us to participate in the care of this patient. us Vijaya Herrmann MD US ORDERABLES Final Resul t from Last [address] [facility] MEDICAID
[2024-10-03 11:24] VITALS: BMI 34.3
--- NOTE | 2024-10-03 11:25 | OBADM ---
This patient, Woodrow Marques, admitted to the OB room Labor/Delivery/Recovery 105 for observation. Patient/family oriented to hospital policies and general routines including ID bracelet, bed and alarms, visiting hours, pain management, procedures, bathroom and other care routines, personal items, smoking policy, room service/diet, and visiting hours. Patient/Family are encouraged to report perceived risks to care and to ask questions if they do not understand what they are told or what they should do.
[2024-10-03 11:30] VITALS: BP 99/49; PULSE 84
[2024-10-03 11:55] LABS: OBXCEM ROM Plus Negative (Negative)
--- NOTE | 2024-10-04 17:50 | PM.OBTRLD ---
OB - Triage/Final Diagnosis Visit Information Date of evaluation: 10/03/24 Reason for evaluation: threatened labor Comments/Additional reasons for admission: I have assessed the risk for this patient, Maria Elenayasirbhaskar Marques, and determined that she would benefit from observation care. Evaluation Laboratory results: Laboratory Tests 10/03/24 11:12 Membranes Rupture Rom plus negative
== END 2024-10-03 11:56 | disposition home or self-care (01) ==
PROVIDERS: Admitting Provider Student in an Organized Health Care Education/Training Program; Visit Provider Student in an Organized Health Care Education/Training Program
DX: Z03.79 Encounter for other suspected maternal and fetal conditions ruled out (principal); Z3A.36 36 weeks gestation of pregnancy
CPT/HCPCS: 84112; G0378; G0379

== ENCOUNTER 2024-10-11 12:06 | Inpatient (IN) | payer OTHER, SELFPAY ==
[2024-10-11] VITALS (149 sets, daily range): BP systolic 64–125; BP diastolic 42–80; PULSE 64–102; TEMP 36.3–36.4; O2SAT 97–100; BMI 35.9
--- OUTSIDE RECORDS SUMMARY | 2024-10-11 15:37 | XMS_ITS | Clinical Summary ---
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 [address] [place] [id number] Will Nassar MD 09/29/2024 10:00 AM CDT - 09/29/2024 11:59 PM CDT Hospital Encounter [facility] M[facility] and Ground Floor [facility] [address] [place] [phone] Vijaya Herrmann MD Discharge Disposition: Home or Self Care 09/29/2024 External Device Data STL ABSTRACTION Provider, Abstract 09/28/2024 External Device Data STL ABSTRACTION Provider, Abstract 09/08/2024 External Device Data STL ABSTRACTION Provider, Abstract 09/07/2024 External Device Data STL ABSTRACTION Provider, Abstract 08/31/2024 9:59 AM CDT - 08/31/2024 11:59 PM CDT Hospital Encounter [facility] Ground Floor S [facility] [address] [place] [phone] Ray Mock MD Discharge Disposition: Home or [...] on file 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 Anatomical Region Laterality Modality Pelvis Ultrasound 09/29/2024 9:24 AM CDT Narrative 09/29/2024 10:43 AM CDT STL FOLLOW UP ----- Pat. Name: WOODROW THEODORE Study Date: 09/29/2024 9:24am Pat. NO: [id number] Referring MD: ROBERT TINSLEY MD Site: [facility] Political Geographer: Rebecca Gary RDMS : 1995 Age: 29 ----- INDICATION ----- Screening Follow-Up Pyelectasis (Renal Pyelectasis) CODING ----- Diagnoses Z3A.36: Weeks of gestation Z36.2: Encounter for other screening follow-up O28.3: Abnormal ultrasonic finding on screening of mother Procedures 44989: Ultrasound, uterus, real time with image documentation, [...] 6 lb 9 oz EFW by Hadlock ([id number]) Extremities / Bony Struc Biometry: FL / [...] and date of were verified by the applique sewer prior to the exam IMPRESSION ----- Peres [...] Pat. Name:Bandar THEODORE Date:09/29/2024 9:24am Pat. NO: [id number] MD:ROBERT TINSLEY [facility]Re[facility] Gary RDMS :1995Age:29 ----- INDICATION ----- Screening Follow-Up Pyelectasis (Renal Pyelectasis) CODING ----- Diagnoses Z3A.36: Weeks of gestation Z36.2: Encounter for other screeningfollow-up O28.3: Abnormal ultrasonic finding on antenatalscreening of mother Procedures [id number]: Ultrasound, uterus, real time withimage documentation, follow up, transabdominal approach per fetus HISTORY ----- OB History 4. Para 3 T3L3 MATERNAL ASSESSMENT ----- Physical Exam Weight 87 kg. BMI 34.93 kg/m METHOD ----- Transabdominal ultrasound examination ----- Peres . Number of fetuses: 1 DATING ----- GA by prior [id number] w + 1 d ROCIO by prior [...] 6 lb 9 oz EFW by Hadlock ([id number]) Extremities / Bony Struc Biometry: FL / [...] and date of were verified by the applique sewer prior tothe exam IMPRESSION ----- Peres @ [...] of this patient. us Vijaya Herrmann MD ORDERABLES Final Resul t from Last 3 Months Insurance MEDICAID
--- OUTSIDE RECORDS SUMMARY | 2024-10-11 15:37 | XMS_ITS | Clinical Summary ---
Author Organization [facility] Address [address] 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 This disclosure is being madepursuant to the Care Everywhere program and may not contain all information available regarding this patient. 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
[2024-10-11 15:43] LABS: Hematocrit 36.1 % (37.0-47.0); Hemoglobin 11.7 g/dL (12.0-15.0); Immature Granulocyte Percent A 0.1 % (0-0.5); Lymphocytes Absolute Auto 1.39 K/mm3 (0.9-3.2); Mean Corpuscular HGB Conc 32.4 g/dl (32-36); Mean Corpuscular Hemoglobin 27.1 pg (26-34); Mean Corpuscular Volume 83.6 fl (80-100); Nucleated Red Blood Cells Absolute Auto 0.000 K/mm3 (0.0-0.012); Nucleated Red Blood Cells Perc 0.0 % (0.0-0.2); Platelet Count Result 181 k/mm3 (150-375); Red Blood Count 4.32 M/mm3 (4.2-5.4); White Blood Count 7.3 K/mm3 (4.5-10.0)
[2024-10-11] MEDS: LACTATED RINGERS 1,000 ML 125 ML IV CONT ×2 (15:53→17:30)
[2024-10-11 16:46] LABS: Syphilis IgG/IgM Antibody Non-Reactive (Nonreactive)
--- NOTE | 2024-10-11 17:26 | P.PNAN_ITS ---
Anes - Eval Pre Procedure Procedure: labor Date/Time: 10/11/24 17:26 Surgeon: tiffany Preop Diagnosis: pain during labor Pre Op Diagnosis: Contractions Patient Data Age: 29 Gender: F Height: 1.57 m Weight: 89 kg Last Vital Signs Pulse 81 10/11/24 17:15 BP 99/66 L 10/11/24 17:15 O2 Del Method Room Air 10/11/24 15:14 Allergies Allergy/AdvReac Type Severity Reaction Status Date / Time Penicillins Allergy Intermediate rash Verified 10/11/24 15:34 amoxicillin Allergy Unknown RASH Verified 10/11/24 15:34 Home Medications ?Medication ?Instructions ?Recorded ?Confirmed ?Type docosahexaenoic acid 200 mg 400 mg PO DAILY 04/01/24 10/11/24 History capsule ( DHA) ferrous sulfate 325 mg (65 mg 325 mg PO DAILY 09/08/24 10/11/24 History iron) tablet,delayed release miconazole nitrate 4 % (200 mg)-2 1 supp vaginal HS vaginal yeast 10/11/24 10/11/24 History % (9 gram)vaginal,prefill appl,cream (Miconazole-3) Laboratory Tests 10/11/24 15:24 WBC 7.3 K/mm3 (4.5-10.0) RBC 4.32 M/mm3 (4.2-5.4) Hgb 11.7 L g/dL (12.0-15.0) Hct 36.1 L % (37.0-47.0) MCV 83.6 fl (80-100) MCH 27.1 pg (26-34) MCHC 32.4 g/dl (32-36) RDW 19.9 H % (11.5-14.5) Plt Count 181 k/mm3 (150-375) MPV 10.3 fl (7.4-10.4) Immature Gran % (Auto) 0.1 % (0-0.5) Neut % (Auto) 72.5 % (45.5-73.1) Lymph % (Auto) 19.0 % (18.3-44.2) Long % (Auto) 7.9 % (2.6-8.5) Eos % (Auto) 0.4 % (0-4.4) Baso % (Auto) 0.1 L % (0.2-1.2) Lymph # (Auto) 1.39 K/mm3 (0.9-3.2) Long # (Auto) 0.6 K/mm3 (0.1-0.6) Eos # (Auto) 0.0 K/mm3 (0-0.3) Baso # (Auto) 0.0 K/mm3 (0.0-0.1) Abs Immat Gran (auto) 0.01 K/mm3 (0.00-0.031) Absolute Neuts (auto) 5.3 K/mm3 (1.3-6.7) Absolute Nucleated RBC 0.000 K/mm3 (0.0-0.012) Nucleated RBC % 0.0 % (0.0-0.2) Syphilis IgG/IgM Ab Non-reactive (Nonreactive) Blood Type B Positive Antibody Screen Pending Patient hx anesthesia problems: none Family hx anesthesia problems: none Results Review: All pre-operative results and documents have been reviewed as part of the pre- operative evaluation. [facility] Past Medical History Medical History Encounter for IUD insertion BMI 34.0-34.9,adult Vaginal odor Constipation Surgical History Surgical History H/O foot surgery Family History Family History Son Asthma Grandparent History of cancer Cerebrovascular accident Other Diabetes mellitus Aunt Father No problems noted. Mother Neuropathy Kidney disease Sibling No problems noted. 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
[2024-10-11] MEDS: PHENYLEPHRINE 1,000 MCG/10 ML SYRINGE 100 MCG IV PUSH ×4 (18:42→23:46)
--- NOTE | 2024-10-11 18:59 | LDADM ---
This patient, Woodrow Marques, was admitted to Labor/Delivery/Recovery 103 on 10/11/24 at 12:06. Plans for labor, pain management and were discussed with patient. Patient/family oriented to hospital policies and general routines including ID bracelet, bed and alarms, visiting hours, pain management, procedures, bathroom and other care routines, personal items, smoking policy, room service/diet and guest tray routines, infant security routines, and visiting hours. Patient/Family are encouraged to report perceived risks to care and to ask questions if they do not understand what they are told or what they should do. See OBIX for further documentation.
[2024-10-12] VITALS (172 sets, daily range): BP systolic 79–117; BP diastolic 43–81; PULSE 25–168; RESP 12–18; TEMP 36.1–36.7; O2SAT 80–100
--- NOTE | 2024-10-12 02:24 | PM.IMHP ---
H&P: HPI History of Present Illness Date/Time: 10/12/24 02:24 Chief Complaint: Contractions Narrative: 29 y/o at 38 weeks here with contractions. Her cervix changed from 4 to 5 cm to the nurse's exam, so labor was diagnosed and she was admitted. Now comfortable with epidural. GBS neg. GCT 89. Have been augmenting labor with oxytocin. She just had SROM with clear fluid. Review of Systems Review of Systems: All systems reviewed & are unremarkable except as noted in HPI and below PMFSH Past Medical History Medical History Encounter for IUD insertion BMI 34.0-34.9,adult Vaginal odor Constipation Surgical History Surgical History H/O foot surgery Family History Family History Son Asthma Grandparent History of cancer Cerebrovascular accident Other Diabetes mellitus Aunt Father No problems noted. Mother Neuropathy Kidney disease Sibling No problems noted. 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 Gender identity (if verbalized by the patient): Female Sexual Orientation (if Verbalized by the Patient): Straight or Heterosexual Spiritual care concerns: No Agree to blood products: Yes Meds Home Medications and Allergies Home Medications ?Medication ?Instructions ?Recorded ?Confirmed ?Type docosahexaenoic acid 200 mg 400 mg PO DAILY 04/01/24 10/11/24 History capsule ( DHA) ferrous sulfate 325 mg (65 mg 325 mg PO DAILY 09/08/24 10/11/24 History iron) tablet,delayed release miconazole nitrate 4 % (200 mg)-2 1 supp vaginal HS vaginal yeast 10/11/24 10/11/24 History % (9 gram)vaginal,prefill appl,cream (Miconazole-3) Allergies Allergy/AdvReac Type Severity Reaction Status Date / Time Penicillins Allergy Intermediate rash Verified 10/11/24 15:34 amoxicillin Allergy Unknown RASH Verified 10/11/24 15:34 Vital Signs Vital Signs - 24 hr 10/11/24 15:14 10/11/24 15:37 10/11/24 15:45 Temperature Pulse Rate 102 H 100 Blood Pressure 107/64 107/70 Pulse Oximetry Oxygen Delivery Room Air 10/11/24 16:00 10/11/24 16:15 10/11/24 16:30 Temperature Pulse Rate 96 91 95 Blood Pressure 92/61 L 99/62 L 99/67 L Pulse Oximetry Oxygen Delivery 10/11/24 16:45 10/11/24 17:00 10/11/24 17:15 Temperature Pulse Rate 93 87 81 Blood Pressure 86/66 L 98/69 L 99/66 L Pulse Oximetry Oxygen Delivery 10/11/24 17:29 10/11/24 17:30 10/11/24 17:33 Temperature Pulse Rate 97 94 Blood Pressure 117/66 125/80 Pulse Oximetry 100 Oxygen Delivery 10/11/24 17:34 10/11/24 17:38 10/11/24 17:39 Temperature Pulse Rate 101 H Blood Pressure 121/76 Pulse Oximetry 100 100 Oxygen Delivery 10/11/24 17:42 10/11/24 17:44 10/11/24 17:45 Temperature Pulse Rate 85 91 94 Blood Pressure 110/68 108/59 L 109/62 Pulse Oximetry 99 Oxygen Delivery 10/11/24 17:46 10/11/24 17:48 10/11/24 17:49 Temperature Pulse Rate 95 101 H Blood Pressure 114/54 L 109/60 Pulse Oximetry 100 Oxygen Delivery 10/11/24 17:50 10/11/24 17:51 10/11/24 17:52 Temperature Pulse Rate 101 H 99 102 H Blood Pressure 112/64 109/59 L 104/68 Pulse Oximetry Oxygen Delivery 10/11/24 17:54 10/11/24 17:55 10/11/24 17:58 Temperature Pulse Rate 95 89 Blood Pressure 102/56 L 105/66 Pulse Oximetry 100 Oxygen Delivery 10/11/24 17:59 10/11/24 18:00 10/11/24 18:02 Temperature Pulse Rate 99 93 Blood Pressure 110/55 L 113/64 Pulse Oximetry 100 Oxygen Delivery 10/11/24 18:04 10/11/24 18:05 10/11/24 18:08 Temperature Pulse Rate 97 99 Blood Pressure 113/65 111/65 Pulse Oximetry 100 Oxygen Delivery 10/11/24 18:09 10/11/24 18:10 10/11/24 18:13 Temperature Pulse Rate 95 91 Blood Pressure 113/63 108/66 Pulse Oximetry 100 Oxygen Delivery 10/11/24 18:14 10/11/24 18:15 10/11/24 18:18 Temperature Pulse Rate 92 84 Blood Pressure 104/62 111/63 Pulse Oximetry 99 Oxygen Delivery 10/11/24 18:19 10/11/24 18:20 10/11/24 18:23 Temperature Pulse Rate 80 99 Blood Pressure 110/59 L 103/64 Pulse Oximetry 100 Oxygen Delivery 10/11/24 18:24 10/11/24 18:25 10/11/24 18:28 Temperature Pulse Rate 100 95 Blood Pressure 101/62 109/55 L Pulse Oximetry 100 Oxygen Delivery 10/11/24 18:29 10/11/24 18:30 10/11/24 18:33 Temperature Pulse Rate 101 H 83 Blood Pressure 105/61 107/59 L Pulse Oximetry 99 Oxygen Delivery 10/11/24 18:34 10/11/24 18:35 10/11/24 18:37 Temperature Pulse Rate 83 88 Blood Pressure 85/47 L 64/51 L Pulse Oximetry 97 Oxygen Delivery 10/11/24 18:38 10/11/24 18:39 10/11/24 18:41 Temperature Pulse Rate 92 96 94 Blood Pressure 81/53 L 84/49 L 89/48 L Pulse Oximetry 100 Oxygen Delivery 10/11/24 18:42 10/11/24 18:44 10/11/24 18:45 Temperature Pulse Rate 81 75 Blood Pressure 99/61 L 97/47 L Pulse Oximetry 100 Oxygen Delivery 10/11/24 18:46 10/11/24 18:47 10/11/24 18:49 Temperature Pulse Rate 84 89 Blood Pressure 95/50 L 100/58 L Pulse Oximetry 100 Oxygen Delivery 10/11/24 18:50 10/11/24 18:53 10/11/24 18:54 Temperature Pulse Rate 85 86 Blood Pressure 112/64 112/62 Pulse Oximetry 100 Oxygen Delivery 10/11/24 18:55 10/11/24 18:58 10/11/24 18:59 Temperature 97.4 F L Pulse Rate 88 87 Blood Pressure 104/61 104/61 Pulse Oximetry 100 Oxygen Delivery 10/11/24 19:00 10/11/24 19:04 10/11/24 19:09 Temperature Pulse Rate 85 Blood Pressure 110/61 Pulse Oximetry 100 100 Oxygen Delivery 10/11/24 19:14 10/11/24 19:15 10/11/24 19:19 Temperature Pulse Rate 89 Blood Pressure 105/61 Pulse Oximetry 100 100 Oxygen Delivery 10/11/24 19:24 10/11/24 19:29 10/11/24 19:30 Temperature Pulse Rate 85 Blood Pressure 108/67 Pulse Oximetry 99 98 Oxygen Delivery 10/11/24 19:34 10/11/24 19:39 10/11/24 19:44 Temperature Pulse Rate Blood Pressure Pulse Oximetry 100 99 98 Oxygen Delivery 10/11/24 19:45 10/11/24 19:49 10/11/24 19:54 Temperature Pulse Rate 88 Blood Pressure 107/67 Pulse Oximetry 99 99 Oxygen Delivery 10/11/24 19:59 10/11/24 20:00 10/11/24 20:04 Temperature Pulse Rate 85 Blood Pressure 102/64 Pulse Oximetry 99 99 Oxygen Delivery 10/11/24 20:09 10/11/24 20:14 10/11/24 20:15 Temperature Pulse Rate 77 Blood Pressure 108/67 Pulse Oximetry 100 100 Oxygen Delivery 10/11/24 20:19 10/11/24 20:24 10/11/24 20:29 Temperature Pulse Rate Blood Pressure Pulse Oximetry 99 99 99 Oxygen Delivery 10/11/24 20:30 10/11/24 20:34 10/11/24 20:39 Temperature Pulse Rate 78 Blood Pressure 108/69 Pulse Oximetry 99 97 Oxygen Delivery 10/11/24 20:44 10/11/24 20:45 10/11/24 20:49 Temperature Pulse Rate 78 Blood Pressure 104/70 Pulse Oximetry 99 98 Oxygen Delivery 10/11/24 20:54 10/11/24 20:59 10/11/24 21:00 Temperature Pulse Rate 79 Blood Pressure 110/66 Pulse Oximetry 98 99 Oxygen Delivery 10/11/24 21:04 10/11/24 21:09 10/11/24 21:14 Temperature Pulse Rate Blood Pressure Pulse Oximetry 98 98 99 Oxygen Delivery 10/11/24 21:15 10/11/24 21:19 10/11/24 21:24 Temperature Pulse Rate 78 Blood Pressure 104/54 L Pulse Oximetry 99 99 Oxygen Delivery 10/11/24 21:29 10/11/24 21:30 10/11/24 21:34 Temperature Pulse Rate 78 Blood Pressure 98/55 L Pulse Oximetry 97 98 Oxygen Delivery 10/11/24 21:39 10/11/24 21:44 10/11/24 21:45 Temperature Pulse Rate 79 Blood Pressure 93/51 L Pulse Oximetry 99 98 Oxygen Delivery 10/11/24 21:49 10/11/24 21:54 10/11/24 21:59 Temperature Pulse Rate Blood Pressure Pulse Oximetry 98 98 98 Oxygen Delivery 10/11/24 22:00 10/11/24 22:04 10/11/24 22:09 Temperature Pulse Rate 78 Blood Pressure 95/51 L Pulse Oximetry 98 99 Oxygen Delivery 10/11/24 22:14 10/11/24 22:15 10/11/24 22:19 Temperature Pulse Rate 78 Blood Pressure 95/50 L Pulse Oximetry 98 98 Oxygen Delivery 10/11/24 22:24 10/11/24 22:29 10/11/24 22:30 Temperature Pulse Rate 82 Blood Pressure 90/54 L Pulse Oximetry 98 100 Oxygen Delivery 10/11/24 22:31 10/11/24 22:32 10/11/24 22:36 Temperature Pulse Rate 80 Blood Pressure 94/61 L Pulse Oximetry 99 98 Oxygen Delivery 10/11/24 22:41 10/11/24 22:45 10/11/24 22:46 Temperature Pulse Rate 81 Blood Pressure 92/54 L Pulse Oximetry 98 98 Oxygen Delivery 10/11/24 22:51 10/11/24 22:56 10/11/24 23:00 Temperature Pulse Rate 75 Blood Pressure 92/49 L Pulse Oximetry 97 97 Oxygen Delivery 10/11/24 23:01 10/11/24 23:06 10/11/24 23:11 Temperature Pulse Rate Blood Pressure Pulse Oximetry 97 97 97 Oxygen Delivery 10/11/24 23:15 10/11/24 23:16 10/11/24 23:21 Temperature Pulse Rate 81 Blood Pressure 71/42 L Pulse Oximetry 98 99 Oxygen Delivery 10/11/24 23:26 10/11/24 23:28 10/11/24 23:30 Temperature Pulse Rate 83 77 Blood Pressure 91/63 L 86/47 L Pulse Oximetry 100 Oxygen Delivery 10/11/24 23:31 10/11/24 23:36 10/11/24 23:37 Temperature Pulse Rate 75 Blood Pressure 86/52 L Pulse Oximetry 97 98 Oxygen Delivery 10/11/24 23:40 10/11/24 23:45 10/11/24 23:48 Temperature 97.6 F Pulse Rate 64 78 Blood Pressure 94/49 L 83/51 L Pulse Oximetry Oxygen Delivery 10/11/24 23:50 10/11/24 23:56 10/11/24 23:57 Temperature Pulse Rate 73 79 72 Blood Pressure 86/50 L 87/48 L 103/66 Pulse Oximetry Oxygen Delivery 10/12/24 00:00 10/12/24 00:15 10/12/24 00:31 Temperature Pulse Rate 76 77 80 Blood Pressure 104/70 92/55 L 91/55 L Pulse Oximetry Oxygen Delivery 10/12/24 00:45 10/12/24 00:57 10/12/24 01:00 Temperature Pulse Rate 84 72 76 Blood Pressure 79/47 L 89/52 L 90/54 L Pulse Oximetry Oxygen Delivery 10/12/24 01:12 10/12/24 01:12 10/12/24 01:15 Temperature Pulse Rate 82 Blood Pressure 104/50 L Pulse Oximetry 100 100 Oxygen Delivery 10/12/24 01:17 10/12/24 01:22 10/12/24 01:27 Temperature Pulse Rate Blood Pressure Pulse Oximetry 100 100 99 Oxygen Delivery 10/12/24 01:27 10/12/24 01:30 10/12/24 01:32 Temperature Pulse Rate 83 Blood Pressure 90/54 L Pulse Oximetry 100 98 Oxygen Delivery 10/12/24 01:37 10/12/24 01:42 10/12/24 01:45 Temperature Pulse Rate 89 Blood Pressure 96/50 L Pulse Oximetry 99 100 Oxygen Delivery 10/12/24 01:47 10/12/24 01:52 10/12/24 01:57 Temperature Pulse Rate Blood Pressure Pulse Oximetry 100 100 100 Oxygen Delivery 10/12/24 02:00 10/12/24 02:02 10/12/24 02:07 Temperature Pulse Rate 81 Blood Pressure 86/47 L Pulse Oximetry 99 99 Oxygen Delivery 10/12/24 02:12 10/12/24 02:15 10/12/24 02:20 Temperature Pulse Rate 98 Blood Pressure 88/58 L Pulse Oximetry 100 99 100 Oxygen Delivery Exam Const: Other: Well-developed, well-nourished female in no acute distress. Neck: Other: Neck: Trachea midline, no thyromegaly or masses. Resp: Other: Lungs: Normal respiratory effort. Clear to auscultation bilaterally. Cardio: Other: Heart: Regular rate and rhythm with normal S1-S2. GI: Other: ABD: Soft, nontender, nondistended, gravid. No guarding or rebound tenderness. No hepatosplenomegaly. heartbeat auscultated. : Other: Cervix: 6/50/-2. IUPC placed. Vertex. Bloody show. Back/Spine/Pelvis: Other: Back: No CVA tenderness. Skin: Other: Skin: No lesions, rashes or ulcers noted. Extrem: Other: Extremities: nontender with no edema Psych: Other: Mental status grossly normal, with normal mood and affect. H&P: Results Labs Labs: Short CBC 10/11/24 Range/Units 15:24 WBC 7.3 (4.5-10.0) K/mm3 Hgb 11.7 L (12.0-15.0) g/dL Hct 36.1 L (37.0-47.0) % Plt Count 181 (150-375) k/mm3 Assessment and Plan Assessment and plan (1) Active labor at term: Status: Acute Assessment and Plan: A: IUP at 38 weeks with labor. P: Anticipate .
[2024-10-12] MEDS: AZITHROMYCIN IV 500 MG in SODIUM CHLORIDE 0.9% IV 250 ML IVPB (07:32)
[2024-10-12] MEDS: FAMOTIDINE 20 MG/2 ML VIAL IV PUSH (07:32)
[2024-10-12] MEDS: ACETAMINOPHEN 500 MG TABLET 1000 MG PO ×3 (07:32→21:38)
[2024-10-12] MEDS: ONDANSETRON INJ 4 MG/2 ML VIAL IV PUSH (07:32)
--- NOTE | 2024-10-12 07:36 | PM.OBPNLAB ---
Pain Control Date/time seen: 10/12/24 07:36 Comments: Called at 0620, patient complete. Arrived 0640. Forebag ruptured clear. C/C/0. She had repetitive lates with pushing, no change in station. she was recommended for primary for nonreassuring tracing remote from delivery. She was informed of risk and benefits of section and risk of continuing in labor. Questions answered. She agreed with section.
--- NOTE | 2024-10-12 07:41 | P.PCNOB_ITS ---
OB - Delivery Note Procedure Delivery date: 10/12/24 Pre-op diagnosis: Decelerations and Non-Reassuring Status Post-op Diagnosis: Same Delivery monitor: External FHT, Internal FHT and Internal Uterine Prior to decision for section, ACOG/SM labor guidelines were considered and discussed with the patient and staff. Decision made to proceed with the section.: Yes Procedure Performed: Primary Surgeon: Yeison Smith MD Anesthesia type: Epidural Description of Procedure/Findings: She presented in early labor. She progressed to active labor. Epidural placed on request. She had pitocin augmentation. She had decelerations and IUPC placement and amnioinfusion started. She did have bleeding during active labor. This did improve. Tracing Cat 2. She progressed to complete. Forebag ruptured. Clear fluid. After pushing for 30 minutes, tracing significant for repetitive lates, she did not have descent with pushing. She was recommended for section. She agreed to primary section. Findings: Male , OP, loose nuchal cord. Upon entering amniotic cavity, fluid noted to be bloody. After informed consent, risks and benefits of the procedure was discussed with the patient. The patient was taken to the operating room where she was placed in the dorsal lithotomy position with leftward tilt. After the prior placed epidural anesthesia was found to be adequate, she was then prepped and draped in the usual sterile fashion. A Pfannenstiel skin incision was made with a scalpel and carried through to the underlying layer of fascia. The fascia was then nicked in the midline, extending bilaterally. The fascia was dissected off the rectus muscles bluntly and sharply, superiorly and inferiorly. The rectus muscles were in the midline, and peritoneum was identified and entered bluntly. The pelvic organs were visualized. The bladder blade was then inserted. The vesicouterine peritoneum was identified and entered sharply with Metzenbaum scissors and extended bilaterally and then the bladder flap was created digitally. The low transverse uterine incision was then made with the scalpel and extended with bilateral index fingers in a crescent-shaped fashion. The head was delivered and the nuchal cord was manually reduced, the rest of the was delivered. The nose and mouth suctioned. The cord was clamped twice and cut. The infant was then handed off to the awaiting pediatric staff. The placenta was then delivered manually. The uterine cavity was sponge curetted. The uterus was then exteriorized. The uterine incision was then closed with two layers of 0 vicryl in a running locked fashion. Hemostasis noted. Posterior cul de sac irrigated. The uterus was then returned to the abdomen. Bilateral gutters were cleared off clot and debris. The uterine incision was noted to be hemostatic. Interceed placed on uterine incision and vertically on front of uterus. The muscle bellies were inspected and noted to be hemostatic. The subfascial layer was noted to be hemostatic, the peritoneum was approximated with 3.0 vicryl. The fascia was closed with 0 Vicryl in a running fashion. The subcutaneous layer was irrigated and hemostasis noted and was approximated with 3-0 Vicry. The skin was closed with 4.0 vicryl. Dressing placed. All instruments, needle, and lap counts were correct x3. The patient was taken to the recovery room in stable condition. Specimen: Yes Estimated Blood Loss: 550 Drains: No Packing: No Pathology: Yes (Placenta and cord) Complications: No immediate complications Condition: Stable Disposition: Floor [place] Baby Date of : 10/12/24 Time of : 08:11 Gestational Age by Date: 37 gender: Male Weight (pounds): 6 Weight (ounces): 9 presentation: vertex position: Left Occiput Posterior Placenta delivery description: Expressed Cord Vessel Description: Nuchal Cord, Loose and Reduced (manually) score one minute: 7 score five minutes: 8
[2024-10-12] MEDS: ceFAZolin 2 GM in SODIUM CHLORIDE 0.9% IV 50 ML 100 ML IVPB (08:00)
[2024-10-12] MEDS: KETOROLAC 15 MG/ML VIAL (*BKC) IV PUSH ×3 (08:50→21:37)
--- NOTE | 2024-10-12 09:35 | S_PTH ---
PATIENT: Woodrow Marques LOC: [facility] U#:[id number] AGE/SX: 29/F ROOM: 291 RE10/11/[address]: Yeison Smith MD : 1995 BED: 00 DIS: 10/14/2024 SPEC #: [id number] RECD: 10/13/24 07:45 STATUS: YESICA REQ #: [id number] RAYMOND: 10/12/24 09:[address]: Yeison Smith DEPT: [facility] Surgical RECD BY: Alyse Barrientos ENTERED: 10/13/24 07:46 SP TYPE: Surgical OTHR DR: UNKNOWN,DOCTOR Tissues: A - Placenta Procedures: Hematoxylin and Eosin Stain Gross and Microscopic Level 5
[2024-10-12] MEDS: LACTATED RINGERS 1,000 ML 125 ML IV CONT (09:40)
[2024-10-12] MEDS: OXYTOCIN 30 UNITS/NS 500 ML 30 UNITS/500 ML BAG 125 UNITS IV CONT (09:44)
--- NOTE | 2024-10-12 11:56 | PC.NURSE ---
Patient transferred to post room #291 via bed. Support person present. Oriented to unit, room, information board, rooming in, admission packet and security measures. Patient verbalizes understanding.
[2024-10-12] MEDS: DEXTROSE 5%/0.45% SOD CHL 1,000 ML 125 ML IV CONT ×2 (13:37→21:37)
[2024-10-12] MEDS: LIDOCAINE 5% PATCH 1 PATCH TRANSDERM (13:41)
--- NOTE | 2024-10-12 14:10 | PC.NURSE ---
1410: Met with patient to assess and discuss needs related to feeding. Mother states it is her intention to [combo feed]. We attempted to latch baby in a cradle position on the right breast. He is very sleepy and gave no effort to open his mouth, root, or latch. Mom will keep him skin to skin and we will try again in 30 minutes, or if he gives feeding cues sooner. Encouraged mother to breastfeed infant 8-12 times in 24 hours (approximately every 2-3 hours), watching for early feeding cues. If is sleepy, unwrap and place baby skin to skin. Mother educated on expectations for in the immediate period. Reviewed documenting feedings on the feeding sheet. Mother instructed to call for assistance if will not feed every 3 hours, if there is discomfort with , or if mother has any other questions or concerns. resources provided including the Mom and Baby Guide and name/number on communication board. Mother verbalized understanding. Updated patient?s primary RN with education provided.? 1450: Attempted to latch again. Baby opened his mouth a little this time but was still sleepy and we were unable to achieve a latch. Mom requests to feed a bottle at this time. Reviewed need to start pumping if infant continues to struggle with feeding at breast. Mom is open to this suggestion. Mom will offer the breast first at the next feeding time. She is instructed to feed 10-15ml and to call out if she is unable to get baby to feed from the bottle. Primary RN updated.
[2024-10-12] MEDS: ceFAZolin 1 GM in SODIUM CHLORIDE 0.9% IV 50 ML 100 ML IVPB ×2 (15:35→23:00)
[2024-10-12] MEDS: SIMETHICONE 80 MG TAB.CHEW PO (15:37)
[2024-10-12] MEDS: oxyCODONE HCL (*CRX) 5 MG TAB IR PO (19:55)
[2024-10-12] MEDS: oxyCODONE HCL (*CRX) 5 MG TAB IR 10 MG PO (23:00)
[2024-10-13] MEDS: KETOROLAC 15 MG/ML VIAL (*BKC) IV PUSH (03:45)
[2024-10-13] MEDS: ACETAMINOPHEN 500 MG TABLET 1000 MG PO ×4 (03:45→22:11)
[2024-10-13 04:40] LABS: Hematocrit 29.5 % (37.0-47.0); Hemoglobin 9.3 g/dL (12.0-15.0); Immature Granulocyte Percent A 0.4 % (0-0.5); Lymphocytes Absolute Auto 1.84 K/mm3 (0.9-3.2); Mean Corpuscular HGB Conc 31.5 g/dl (32-36); Mean Corpuscular Hemoglobin 27.3 pg (26-34); Mean Corpuscular Volume 86.5 fl (80-100); Nucleated Red Blood Cells Absolute Auto 0.000 K/mm3 (0.0-0.012); Nucleated Red Blood Cells Perc 0.0 % (0.0-0.2); Platelet Count Result 149 k/mm3 (150-375); Red Blood Count 3.41 M/mm3 (4.2-5.4); White Blood Count 14.3 K/mm3 (4.5-10.0)
[2024-10-13 07:25] VITALS: BP 100/65; PULSE 62; RESP 18; TEMP 36.6; O2SAT 98
[2024-10-13] MEDS: ceFAZolin 1 GM in SODIUM CHLORIDE 0.9% IV 50 ML 100 ML IVPB (07:42)
[2024-10-13] MEDS: SIMETHICONE 80 MG TAB.CHEW PO ×3 (07:44→16:45)
[2024-10-13] MEDS: MULTIVIT/MIN/PREN/FOL AC/IRON TABLET 1 TAB PO (07:44)
[2024-10-13] MEDS: DOCUSATE SODIUM 100 MG CAPSULE PO ×2 (07:45→16:44)
--- NOTE | 2024-10-13 08:57 | P.PNOB_ITS ---
OB - PN: Subj Subjective Date/time seen: 10/13/24 08:57 Interval history: she reports adequate pain control. She has ambulated in the room. Positive flatus tolerating regular food. lochia mild.Denies lightheadedness or dizziness. baby status: doing well OB - PN: Obj Data Labs 10/13/24 03:23 Labs: Laboratory Results - last 24 hr 10/13/24 03:23 WBC 14.3 H RBC 3.41 L Hgb 9.3 L Hct 29.5 L MCV 86.5 MCH 27.3 MCHC 31.5 L RDW 19.7 H Plt Count 149 L MPV 11.1 H Immature Gran % (Auto) 0.4 Neut % (Auto) 77.1 H Lymph % (Auto) 12.8 L [place] % (Auto) 9.3 H Eos % (Auto) 0.3 Baso % (Auto) 0.1 L Lymph # (Auto) 1.84 [place] # (Auto) 1.3 H Eos # (Auto) 0.0 Baso # (Auto) 0.0 Abs Immat Gran (auto) 0.06 H Absolute Neuts (auto) 11.0 H Absolute Nucleated RBC 0.000 Nucleated RBC % 0.0 OB - PN A/P Assessment and Plan (1) Delivery by section: Status: Acute Assessment and Plan: postop day 1. Doing well. Asymptomatic anemia. Routine postop care. Time Spent With Patient Time: Total time spent is greater than 50% in coordination of care (as documented) at patient's floor/unit and/or counseling patient: Exam 2 Const: General: comfortable and no acute distress Resp: Effort & Inspection: normal respiratory effort GI: Other: Dressing clean dry and intact fundus firm below umbilicus Psych: Mental Status: mental status grossly normal
--- NOTE | 2024-10-13 09:00 | PM.OBDSVD ---
DS: Admitting Diagnosis Discharge Date 10/14/24 Admitting Diagnosis Labor DS: Discharge Diagnosis Discharge Diagnosis (1) Delivery by section: Status: Acute (2) Non-reassuring cardiotocographic tracing: Code(s): O36.8390 - Maternal care for abnormalities of the heart rate or rhythm, unspecified trimester, not applicable or unspecified Status: Acute OB - DS: Summary Hospital Course Hospital Course: she was admitted in active labor. Labor was significant for nonreassuring tracing for which she had a primary section which was uncomplicated. She did well . Baby did well on postop day 1 she had adequate pain control ambulating tolerating regular food and positive flatus.She was doing well on day 2. She requested discharge to home on day 2. OB Procedures : Ultrasound OB Procedures Intrapartum: OB Procedures: : None Peripartum Data Infant Delivery Method: Section Procedures: Procedures Operation Date: 10/12/24 07:25 Actual Procedure Side Surgeon p Section Yeison Smith MD complications: none Status at Discharge Functional status at discharge: independent ambulation Time Spent with Patient Time attestation: Total time spent providing and/or coordinating discharge services: Exam Const: General: cooperative Orientation/consciousness: oriented to person, oriented to place and oriented to time HENMT: Face/Nose/Sinus: Normal external nose present Eyes: General: appearance normal, both eyes and all related structures Resp: Effort & Inspection: normal respiratory effort GI: Inspection: normal to inspection Skin: General skin exam: normal color Neuro: General: oriented to person, oriented to place and oriented to time Extrem: General: normal to inspection and no calf tenderness Psych: Appearance: grossly normal Mental Status: mental status grossly normal DS: Data Data Completed and Pending Pending studies at discharge: Pending at discharge 10/12/24 09:35 Surgical [PTH] Routine Labs on day of discharge: Labs from last 24 hours 10/13/24 03:23 WBC 14.3 H RBC 3.41 L Hgb 9.3 L Hct 29.5 L MCV 86.5 MCH 27.3 MCHC 31.5 L RDW 19.7 H Plt Count 149 L MPV 11.1 H Immature Gran % (Auto) 0.4 Neut % (Auto) 77.1 H Lymph % (Auto) 12.8 L [place] % (Auto) 9.3 H Eos % (Auto) 0.3 Baso % (Auto) 0.1 L Lymph # (Auto) 1.84 [place] # (Auto) 1.3 H Eos # (Auto) 0.0 Baso # (Auto) 0.0 Abs Immat Gran (auto) 0.06 H Absolute Neuts (auto) 11.0 H Absolute Nucleated RBC 0.000 Nucleated RBC % 0.0 Discharge Plan Discharge Attending physician on discharge: Yeison Smith Consulting providers: Lilo Medina Discharging Clinician: Yeison Smith Anticipated Discharge Date/Time: 10/14/24 13:27 Patient Disposition: Home Activity: may shower, no straining, no driving and follow weight bearing status Diet: regular Discharge Instructions: Education: Mom and Baby Guide Given to: Mother Follow-Up: Call your delivering provider's office for an appointment to be seen. Mom and baby should come to the [facility] for the follow-up appointment. Appointment Date/Time: October 16, 2024 at 8:00 am What to expect at your follow-up visit: Physical Assessment Call [phone] if you are unable to keep your appointment time. BREAST CARE: * Wear a snug supportive bra. * For engorgement discomfort: Breast Feeding: * Apply warm moist washcloths * Express milk as needed to relieve engorgement * Wear loose clothing Bottle Feeding: * May apply ice packs * For sore nipples: * Identify correct latch-on * Apply warm moist washcloths before and after nursing * Air dry nipples after nursing * May apply Lansinoh cream to nipples ABDOMINAL INCISION: * Allow incision to air dry * Do NOT use lotions for powders on your incision * When showering, allow soap and water to run over the incision, but do not wash incision PERINEAL CARE: * Until bleeding stops, use your pritesh bottle after urinating * Change your pad frequently throughout the day * No tub baths until seen by your physician - You may shower ACTIVITY: * Rest as much as possible. * Do not exercise or lift anything heavier than your baby (such as laundry or other children.) * Avoid stairs or driving as much as possible. * Do not put anything into the vagina. No douching, tampons, or sexual activity until seen by physician. NOTIFY PHYSICIAN IF YOU HAVE ANY QUESTIONS OR IF ANY OF THE FOLLOWING SYMPTOMS OCCUR: * If your perineum becomes red, swollen, or more painful than what you have experienced in the hospital. * If your vaginal bleeding becomes foul smelling. * If your vaginal bleeding becomes more heavy than a period or if your bleeding changes from pink to bright red. However, you may pass an occasional walnut-sized clot once or twice for the first week . * If you experience a sharp, shooting pain in you calves. * If you discover a hard, reddened area on your breast or if you experience flu-like symptoms. DIET: * Eat regular, well-balanced meals. * Drink plenty of fluids daily. Patient Language: Greenlandic Stand Alone Forms: General Discharge Information Follow-up/Referrals: Yeison Smith MD [Physician, [facility]] Discharge Medications: New oxycodone 5 mg Tablet 5 mg PO Q4H PRN (Reason: Pain Rated 4-6) Qty: 20 0RF Continued DHA 200 mg capsule 400 mg PO DAILY Patient Comments: .. ferrous sulfate 325 mg (65 mg iron) tablet,delayed release (DR/EC) 325 mg PO DAILY Discontinued miconazole nitrate [Miconazole-3] 4 % (200 mg)- 2 % (9 gram) comb pack,prefill appl, cream 1 supp vaginal HS Patient Comments: pt. has had 1/3 doses Date of admission: 10/11/24 12:06 Primary Care Provider: UNKNOWN,DOCTOR Admitting Provider: Yeison Smith Attending physician on admission: Yeison Smith Condition: Stable
[2024-10-13] MEDS: IBUPROFEN 600 MG TABLET PO ×3 (10:10→22:11)
[2024-10-13] MEDS: oxyCODONE HCL (*CRX) 5 MG TAB IR PO (12:33)
[2024-10-13] MEDS: TETANUS,DIPHTHERIA,AC PERTUSSIS ADULT (0.5 ML) BOOSTRIX IM (16:42)
[2024-10-13] MEDS: LIDOCAINE 5% PATCH 1 PATCH TRANSDERM (16:46)
--- NOTE | 2024-10-13 17:40 | PC.NURSE ---
Breast pump provided due to maternal request. Instructions given on cleaning, care, usage, that there should be no pain, pumping schedule for milk production, collection, and storage of human milk. Patient was assessed for correct placement, flange size, to pump for comfort and nipple stretching/stimulation for adequate milk production every 3 hours (8 times in 24 hours) 1-2 times at night. Parents are encouraged to record the pumping schedule on the feeding sheet.?Mother voiced understanding of the education shared along with mom/baby guide and the pump measurement, flange fit handout for additional resource information. Reported to the Primary RN.
[2024-10-13] MEDS: oxyCODONE HCL (*CRX) 5 MG TAB IR 10 MG PO (19:20)
[2024-10-13 20:00] VITALS: BP 101/65; PULSE 69; RESP 18; TEMP 36.4; O2SAT 98
[2024-10-14] MEDS: ACETAMINOPHEN 500 MG TABLET 1000 MG PO ×2 (04:19→10:06)
[2024-10-14] MEDS: IBUPROFEN 600 MG TABLET PO ×2 (04:20→10:07)
[2024-10-14] MEDS: oxyCODONE HCL (*CRX) 5 MG TAB IR 10 MG PO (04:20)
[2024-10-14 07:15] VITALS: BP 106/64; PULSE 54; RESP 18; TEMP 37; O2SAT 99
[2024-10-14] MEDS: MULTIVIT/MIN/PREN/FOL AC/IRON TABLET 1 TAB PO (10:06)
[2024-10-14] MEDS: DOCUSATE SODIUM 100 MG CAPSULE PO (10:06)
[2024-10-14] MEDS: SIMETHICONE 80 MG TAB.CHEW PO (10:07)
--- NOTE | 2024-10-14 14:03 | PC.NURSE ---
1000. Reviewed standard discharge information with patient including monitoring for required output, transition of stools, feeding 8-12 times every 24 hours, milk production, and follow up at [facility] and with machine ii engraver in the first week of life. Mom is currently pumping, bottle feeding and breast feeding. She states she has no pain with feeding and has no questions at this time regarding feedings. Mom was encouraged to take the feeding log and continue to track feedings and output for the first week . Offered outpatient resources with [facility] referral and Services at [facility]. Patient has the Mom/Baby Guide for further education and reference for common concerns, phone numbers, and guidance on when to call the doctor. A feeding plan was added to the infant?s discharge plan. Patient states that she has no further questions or concerns regarding .
== END 2024-10-14 14:30 | disposition home or self-care (01) | DRG 540 ==
LOC: ANHLDR 10-12 08:32 → ANHOB2 10-12 12:12
PROVIDERS: Obstetrics & Gynecology; Admitting Provider Obstetrics & Gynecology; Visit Provider Obstetrics & Gynecology
PROC: 10D00Z1 Extraction of Products of Conception, Low, Open Approach (ICD-10-PCS; CPT 59514; principal; 2024-10-12 07:25)
DX: O69.81X0 Labor and delivery complicated by cord around neck, without compression, not applicable or unspecified (principal); Z37.0 Single live birth; Z3A.38 38 weeks gestation of pregnancy; O76 Abnormality in fetal heart rate and rhythm complicating labor and delivery
CPT/HCPCS: 36415; 85025; 86593; 86850; 86900; 86901; 88307; 90715; J0690; A9270; J0456; J1100; J1885; J2274; J2371; J2405; J2590; J2704; J2795; J3010; J7050; J7120

== ENCOUNTER 2024-11-10 15:30 | Emergency (ER) | payer BC, OTHER, SELFPAY ==
[2024-11-10 15:38] VITALS: BP 115/79; PULSE 73; RESP 17; TEMP 36.6; O2SAT 98
--- OUTSIDE RECORDS SUMMARY | 2024-11-10 16:14 | XMS_ITS | Clinical Summary ---
Author Organization [facility] Address [address] [place] [address] Phone Care Team Providers Care Lending Consultant Name Role Phone Unavailable Primary Care Provider Unavailabl e Allergies Active Allergy Reactions Criticality Noted Date Comments Amoxicillin Rash Low 02/06/2012 Medications NIFEDIPINE (PROCARDIA ORAL) Every six hours for contractions Active Active Problems Comments Yes No known active problems Encounters Date Type Department Care Team Description 09/29/2024 11:00 AM CDT visit [facility] [address] [place] [phone] Will Nassar MD renal anomaly, single gestation (Primary Dx) 09/29/2024 10:00 AM CDT - 09/29/2024 11:59 PM CDT Hospital Encounter [facility] Maternal and Ground Floor [facility] [address] [place] [phone] Vijaya Herrmann MD Discharge Disposition: Home or Self Care 09/29/2024 External Device Data ST[facility] ABSTRACTION Provider, Abstract 09/28/2024 External Device Data ST[facility] ABSTRACTION Provider, Abstract 09/08/2024 External Device Data [facility] ABSTRACTION Provider, Abstract 09/07/2024 External Device Data ST[facility] ABSTRACTION Provider, Abstract 08/31/2024 9:59 AM CDT - 08/31/2024 11:59 PM CDT Hospital Encounter [facility] Maternal and Ground Floor [facility] [address] [place] [phone] Ray Mock MD Discharge Disposition: Home or [...] on file 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 NO: [id number] Referring MD: ROBERT TINSLEY MD Site: [facility] Neonatal Social Worker: Rebecca Gary RDMS : 1995 Age: 29 ----- INDICATION ----- Screening Follow-Up Pyelectasis (Renal Pyelectasis) CODING ----- Diagnoses Z3A.36: Weeks of gestation Z36.2: Encounter for other screening follow-up O28.3: Abnormal ultrasonic finding on screening of mother Procedures 42221: Ultrasound, uterus, real time with image documentation, [...] 6 lb 9 oz EFW by Hadlock ([id number]) Extremities / Bony Struc Biometry: FL / [...] and date of were verified by the sand control worker prior to the exam IMPRESSION ----- Peres [...] Procedure Note Susan Romero MD - 09/29/2024 [facility] FOLLOW UP ----- Pat. Name:Bandar THEODORE Date:09/29/2024 9:24am Pat. NO: [id number] MD:ROBERT TINSLEY MD [facility]Rebecca Gary RDMS :1995Age:29 ----- INDICATION ----- Screening Follow-Up Pyelectasis (Renal Pyelectasis) CODING ----- Diagnoses Z3A.36: Weeks of gestation Z36.2: Encounter for other screeningfollow-up O28.3: Abnormal ultrasonic finding on antenatalscreening of mother Procedures 99751: Ultrasound, uterus, real time withimage documentation, follow up, transabdominal approach per fetus HISTORY ----- OB History 4. Para 3 T3L3 MATERNAL ASSESSMENT ----- Physical Exam Weight 87 kg. BMI 34.93 kg/m METHOD ----- Transabdominal ultrasound examination ----- Peres . Number of fetuses: 1 DATING ----- GA by prior w + 1 d ROCIO by prior [...] 6 lb 9 oz EFW by Hadlock ([id number]) Extremities / Bony Struc Biometry: FL / [...] and date of were verified by the sand control worker prior tothe exam IMPRESSION ----- Peres @ [...] Resul t from Last 3 Months Insurance [employer]
--- OUTSIDE RECORDS SUMMARY | 2024-11-10 16:14 | XMS_ITS | Clinical Summary ---
Author Organization [facility] Address [address] [place] [address] Care Team Providers Care Developer Architect Name Role Phone Unavailable Primary Care Provider Unavailabl e Source Comments [facility],non-owned Affiliates and Associated Physician Practices is amultiple site organization consisting of ambulatory clinics and hospital sitesin [place], [place], [place] and [place]. This disclosure is being madepursuant to the Care Everywhere program and may not contain all information available regarding this patient. 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 Gender Identity Not on file Sexual Orientation [...] of 3 - 19+ 3-dose series) 01/23/2012 PAP SMEAR 2014 HPV VACCINE (1 - 3-dose SCDM series) 01/23/2020 DEPRESSION SCREENING 02/25/2024 COVID-19 VACCINE ( - 2023-2 5 season) 2024 INFLUENZA VACCINE (#1) 2024 ZOSTER VACCINE (1 [...] patient's age to complete this topic Insurance [facility] SELF PAY NO INSURANCE Member Subscriber Plan / Payer (Ef fective for All Dates) Name:Woodrow Theodore Member ID:Not on file Relation to Subscriber:Not on file Name:WOODROW THEODORE Subscriber ID:Not on file (Home) Address: [address] [place] [phone] Payer ID:Not on file Group ID:Not on file Type:Self Pay Address: [place], [place] Advance Directives * FULL RESUSCITATION (Latest Code Status on File) Date Activated Date Inactivated Comments 12/15/2011 12:54 PM 12/18/2011 2:56 PM
[2024-11-10 16:42] VITALS: BP 103/55; PULSE 84; RESP 16; O2SAT 98
--- OUTSIDE RECORDS SUMMARY | 2024-11-10 16:42 | XMS_ITS | Clinical Summary ---
Author Organization [facility] Address [address] [place] [address] Care Team Providers Care Spool Sander Name Role Phone Unavailable Primary Care Provider Unavailabl e Source Comments [facility],non-owned Affiliates and Associated Physician Practices is amultiple site organization consisting of ambulatory clinics and hospital sitesin [place], [place], [place] and [place]. This disclosure is being madepursuant to the Care Everywhere program and may not contain all information available regarding this patient. 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 Gender Identity Not on file Sexual Orientation [...] patient's age to complete this topic Insurance [facility] SELF PAY NO INSURANCE Member Subscriber Plan / Payer (Ef fective for All Dates) Name:Woodrow Theodore Member ID:Not on file Relation to Subscriber:Not on file Name:WOODROW THEODORE Subscriber ID:Not on file (Home) Address: [address] [place] [phone] Payer ID:Not on file Group ID:Not on file Type:Self Pay Address: [place], [place] Advance Directives * FULL RESUSCITATION (Latest Code Status on File) Date Activated Date Inactivated Comments 12/15/2011 12:54 PM 12/18/2011 2:56 PM
--- OUTSIDE RECORDS SUMMARY | 2024-11-10 16:42 | XMS_ITS | Clinical Summary ---
Author Organization [facility] Address [address] [place] [address] Phone Care Team Providers Care Procedural Nurse Name Role Phone Unavailable Primary Care Provider Unavailabl e Allergies Active Allergy Reactions Criticality Noted Date Comments Amoxicillin Rash Low 02/06/2012 Medications NIFEDIPINE (PROCARDIA ORAL) Every six hours for contractions Active Active Problems Comments Yes No known active problems Encounters Date Type Department Care Team Description 09/29/2024 11:00 AM CDT visit [facility] [address] [place] [phone] Will Nassar MD renal anomaly, single gestation (Primary Dx) 09/29/2024 10:00 AM CDT - 09/29/2024 11:59 PM CDT Hospital Encounter [facility] [address] [place] [phone] Vijaya Herrmann MD Discharge Disposition: Home or Self Care 09/29/2024 External Device Data STL ABSTRACTION Provider, Abstract 09/28/2024 External Device Data STL ABSTRACTION Provider, Abstract 09/08/2024 External Device Data STL ABSTRACTION Provider, Abstract 09/07/2024 External Device Data STL ABSTRACTION Provider, Abstract 08/31/2024 9:59 AM CDT - 08/31/2024 11:59 PM CDT Hospital Encounter [facility] [address] [place] [phone] Ray Mock MD Discharge Disposition: Home or [...] on file 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 NO: [id number] Referring MD: ROBERT TINSLEY MD Site: [facility] Fur Joiner: Rebecca Gary RDMS : 1995 Age: 29 ----- INDICATION ----- Screening Follow-Up Pyelectasis (Renal Pyelectasis) CODING ----- Diagnoses Z3A.36: Weeks of gestation Z36.2: Encounter for other screening follow-up O28.3: Abnormal ultrasonic finding on screening of mother Procedures 07337: Ultrasound, uterus, real time with image documentation, [...] 6 lb 9 oz EFW by Hadlock ([id number]) Extremities / Bony Struc Biometry: FL / [...] and date of were verified by the premix concrete batcher prior to the exam IMPRESSION ----- Peres [...] Procedure Note Susan Romero MD - 09/29/2024 [facility] FOLLOW UP ----- Pat. Name:Bandar THEODORE Date:09/29/2024 9:24am Pat. NO: [id number] MD:ROBERT TINSLEY [facility]Rebecca Gary RDMS :1995Age:29 ----- INDICATION ----- Screening Follow-Up Pyelectasis (Renal Pyelectasis) CODING ----- Diagnoses Z3A.36: Weeks of gestation Z36.2: Encounter for other screeningfollow-up O28.3: Abnormal ultrasonic finding on antenatalscreening of mother Procedures [id number]: Ultrasound, uterus, real time withimage documentation, follow up, transabdominal approach per fetus HISTORY ----- OB History 4. Para 3 T3L3 MATERNAL ASSESSMENT ----- Physical Exam Weight 87 kg. BMI 34.93 kg/m METHOD ----- Transabdominal ultrasound examination ----- Peres . Number of fetuses: 1 DATING ----- GA by prior [id number] w + 1 d ROCIO by prior [...] 6 lb 9 oz EFW by Hadlock ([id number]) Extremities / Bony Struc Biometry: FL / [...] and date of were verified by the premix concrete batcher prior tothe exam IMPRESSION ----- Peres @ [...]
--- NOTE | 2024-11-10 17:03 | ED_ITS ---
HPI - Neck Pain/Injury General Chief Complaint: Neck Pain/Injury Stated Complaint: neck pain Time Seen by Provider: 11/10/24 16:26 Source: patient Mode of arrival: ambulatory Limitations: no limitations History of Present Illness HPI Narrative: 29 years old female came to the ED with sudden onset of right neck pain right upper back pain and trouble moving right upper extremity because of pain while trying to open a drove over slightly lower than the level of her chest. Patient denies any symptoms prior to that. Patient is 1 month,, breast feed the baby, not physically active since. Patient is healthy otherwise Related Data Home Medications ?Medication ?Instructions ?Recorded ?Confirmed ?Last Taken ?Type docosahexaenoic acid 200 mg 400 mg PO DAILY 04/01/24 0 10/11/24 10/11/24 History capsule ( DHA) ferrous sulfate 325 mg (65 mg 325 mg PO DAILY 09/08/24 10/11/24 10/11/24 History iron) tablet,delayed release Allergies Allergy/AdvReac Type Severity Reaction Status Date / Time Penicillins Allergy Intermediate rash Verified 11/10/24 15:38 amoxicillin Allergy Unknown RASH Verified 11/10/24 15:38 Review of Systems Review of Systems: All systems reviewed & are unremarkable except as noted in HPI and below PMFSH Past Medical History Medical History Encounter for IUD insertion BMI 34.0-34.9,adult Vaginal odor Constipation Surgical History Surgical History H/O foot surgery Family History Family History Son Asthma Grandparent History of cancer Cerebrovascular accident Other Diabetes mellitus Aunt Father No problems noted. Mother Neuropathy Kidney disease Sibling No problems noted. 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 Gender identity (if verbalized by the patient): Female Sexual Orientation (if Verbalized by the Patient): Straight or Heterosexual Spiritual care concerns: No Agree to blood products: Yes Exam Narrative: General appearance: Well-developed, well-nourished Skin: Normal color Head: Normocephalic, nontraumatic Eyes: Clear conjunctiva ENT: Oropharynx normal, ears normal, nose normal Neck: Diffuse tenderness right side of neck, limited range of motion because of pain, no swelling, no mass, no lymphadenopathy, no erythema, no rash Chest and respiratory: Airway patent, no respiratory distress, no accessory muscle use Heart: Regular rate/rhythm Abdomen: Soft, nontender, no organomegaly, quiet bowel sounds Vascular: Normal peripheral pulses, normal capillary refill. Musculoskeletal: Diffuse tenderness right upper back, patient able to abduct right upper extremity up to 170 degree, limited because of pain at the right upper back and neck. 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, no gross motor deficit Course Vital Signs Vital signs: Vital Signs Temperature 36.6 C 11/10/24 15:38 Pulse Rate 73 11/10/24 15:38 Respiratory Rate 17 11/10/24 15:38 Blood Pressure 115/79 11/10/24 15:38 Pulse Oximetry 98 11/10/24 15:38 Oxygen Delivery Room Air 11/10/24 15:38 Temperature 36.6 C 11/10/24 15:38 Pulse Rate 84 11/10/24 16:42 Respiratory Rate 16 11/10/24 16:42 Blood Pressure 103/55 L 11/10/24 16:42 Pulse Oximetry 98 11/10/24 16:42 Oxygen Delivery Room Air 11/10/24 15:38 MDM - Neck Pain/Injury MDM Narrative Medical decision making narrative: Patient been not physically active for roughly 1 month 1 month ago, stiffness of the muscle and less flexible compared to before delivery is my concern. Patient was bending over slightly to open a drawer suddenly felt pain at the right side of the neck and right upper back and right shoulder. No blood workup or imaging are required at this time, muscle strain/sprain is my concern. Patient received Toradol 60 mg IM prior to discharge, discharged on naproxen, heating pad, massage, neck exercise Differential Diagnosis Differential diagnosis: Likely other (As above) Critical Care Time Critical Care Time Critical Care Time: No Discharge Plan Discharge Clinical Impression: Cervicalgia Patient Disposition: Home Condition: Stable Instructions: Acute Neck Pain (ED) Additional Instructions: Return if symptoms are worsening , call your family physician for appointment, take Tylenol as as needed for aches and pain, continue home medications. Massage Heating pad Neck exercise Patient Language: Mongolian Prescriptions: New naproxen [Naprosyn] 500 mg tablet 500 mg PO BID PRN (Reason: pain) Qty: 14 0RF No Action DHA 200 mg capsule 400 mg PO DAILY Patient Comments: .. ferrous sulfate 325 mg (65 mg iron) tablet,delayed release (DR/EC) 325 mg PO DAILY oxycodone 5 mg Tablet 5 mg PO Q4H PRN (Reason: Pain Rated 4-6) Qty: 20 0RF Follow-up/Referrals: [place],MD Kennedy [Primary Care Provider, Unknown]
[2024-11-10] MEDS: KETOROLAC (*BKC) 60 MG/2 ML VIAL IM (17:28)
== END 2024-11-10 17:41 | disposition home or self-care (01) ==
PROVIDERS: Emergency Provider Emergency Medicine; PCP Family Medicine
DX: O99.893 Other specified diseases and conditions complicating puerperium (principal); M54.2 Cervicalgia; Z77.22 Contact with and (suspected) exposure to environmental tobacco smoke (acute) (chronic)
CPT/HCPCS: 96372; 99283; J1885

== ENCOUNTER 2024-11-26 09:50 | Outpatient (RCR) | payer OTHER, MEDICAID, SELFPAY ==
--- NOTE | 2024-11-26 10:54 | OPREHPOC ---
Outpatient Therapy Plan of Care This is a Multidisciplinary Plan of Care that may contain components documented by all disciplines (PT, OT, and ST.) PT Problem 1 PT Problem #1 Knowledge Deficit PT Goal 1 Goal / Goal Update 1. Patient will perform independent HEP Target Visit 2 PT Problem 2 PT Problem #2 Impaired Functional ADLs PT Goal 1 Goal / Goal Update 1. Patient will report BM 5 days out of 7 2. Patient will report no functional limitations due to constipation Target Visit 5 PT Problem 3 PT Problem #3 Pain PT Goal 1 Goal / Goal Update 1. Pain with BM no higher than 2/10 Target Visit 5 PT Problem 4 PT Problem #4 Impaired Strength PT Goal 1 Goal / Goal Update 1. Diastasis recti 2 finger width or less at umbilicus 2. Hip strength 5/5 juanito in all planes Target Visit 5
--- NOTE | 2024-11-26 10:54 | PTOPEVAL1 ---
Assessment and note entered by Halima Mcneil DPT Evaluation Information Assessment Status Evaluation Diagnosis n81.89 ICD-10 Condition Codes (PT) Weakness R53.1 Subjective Information Pt reports she is 5 weeks , . Reports she is having difficulty with BM. Voids 3- 4 times at night, up 1 time at night. Can hold urge to void as long as needed. Denies urinary incontinence or pain with urination. BM has been 3 -4 days in between recently. Pain with BM 10/10 and lowest 0/10. Denies fecal incontinence. Denies history of pelvic pain. Pt reports if she is feeling more constipated it is just harder to do general activities at home. 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 Pt has had 4 previous pregnancies and deliveries, all vaginal without complication. Patient goal: improve regularity and feel normal Return to MD not currently scheduled. Reported Pain Level Pain Score 0: Self Report Assessment PT Clinical Summary The patient is presenting to skilled therapy at 5 weeks post and with diagnosis of pelvic organ prolapse. She presents with overall decreased hip, core, and pelvic floor strength which are contributing to her signs of prolapse as well as reports of constipation and abdominal pain. She will benefit from therapy to address these impairments in order to improve frequency of BM and reduce pain in order to fully function. Plan of Care Interventions Electrical Stimulation,Hot Pack/Cold Pack,Manual Therapy,Neuro Re-education,Patient/Caregiver Education,Therapeutic Activities,Therapeutic Exercise PT Services Indicated Yes Treatment Frequency and 1 time a week for 5 visits Duration These treatments will address the objective and functional deficits as defined above. The patient will be advanced safely and appropriately in order for the patient to progress towards his/her prior level of function. Additional exercises will be introduced and as well as a comprehensive home exercise program upon discharge, if needed, ?to ensure carryover of functional gains achieved in the clinic. This treatment plan has been reviewed and agreement upon by the patient.
--- NOTE | 2024-12-10 15:23 | PCPTNOTE ---
Patient canceled appointment 12/10/24. Unknown specifics.
--- NOTE | 2024-12-15 15:19 | PCPTNOTE ---
Patient did not show up for appointment 12/15/24. Left voicemail for patient to reschedule or confirm next appointment.
--- NOTE | 2024-12-22 14:24 | PCPTNOTE ---
Patient did not show up for appointment 12/22/24.
--- NOTE | 2024-12-22 14:25 | PTOPDC ---
Assessment and note entered by Halima Mcneil DPT Evaluation Information Assessment Status Discharge - Pt Not Present Diagnosis n81.89 ICD-10 Condition Codes (PT) Weakness R53.1 Subjective Information - Assessment PT Clinical Summary Patient has not attended therapy since initial evaluation 11/26/24- she has cancelled 2 visits and no showed 2 visits. Per attendance policy, her case will be discharged this date. Plan of Care PT Services Indicated Yes
== END 2024-12-22 16:14 | disposition home or self-care (01) ==
LOC: ANHPT 09:50
PROVIDERS: Visit Provider Obstetrics & Gynecology
DX: N81.89 Other female genital prolapse (principal)
CPT/HCPCS: 97112; 97140; 97161